=== PATIENT | male | born 1970 | race African-American/Black ===

== ENCOUNTER → 2020-06-28 | Emergency (ER) | payer OTHER ==
[~2020-06-28] VITALS: Ht 162.6 cm; Wt 68.0 kg
[~2020-06-28] MED LIST: PLAVIX75 MG PO
--- OUTSIDE RECORDS SUMMARY | ~2020-06-28 | XMS | Encounter Summary ---
Demographics + + + | Address | [address] | | | [place] [address] | + + + | Home Phone | | + + + | Preferred Language | Unknown | + + + | Marital Status | | + + + | Mormonism Affiliation | Unknown | + + + | Race | White | + + + | Ethnic Group | Not or | + + + Author + + + | Author | [facility] | | | and [place] | + + + | Organization | [facility] | | | and [place] | + + + | Address | Unknown | + + + | Phone | Unavailable | + + + Support + + + + + | Name | Relationship | Address | Phone | + + + + + | Maciel Hanley | ECON | [address] | + | | | | [place], | | | | | [place] [address] | | + + + + + | Wilian Krishna) | ECON | [address] | | | [place] | | [place], [place] | | | | | [address] | | + + + + + | Cathy Hanley | ECON | [address] | | | | | [place], [place] | | | | | [address] | | + + + + + | Zachariah Hanley | ECON | Unknown | + | + + + + + Care Team Providers + +------+ + | Care Offset Plate Preparation Supervisor Name | Role | Phone | + +------+ + | Chito Tarango MD | PCP | | + +------+ + Reason for Referral Evaluate & Treat (Routine) +--------+ + + + + + | Status | Reason | Specialty | Diagnoses / | Referred By | Referred To | | | | | Procedures | Contact | Contact | +--------+ + + + + + | Closed | Specialty | Physical | Diagnoses | Pinto, | | | | Services | Therapy | Status post | Patrick Coker, | | | | Required | | lumbar | MD [address] | | | | | | spinal | [address] | | | | | | fusion | [place], | | | | | | | [place] [address] | | | | | | | Phone: | | | | | | | [phone] | | | | | | | [phone] Fax: | | | | | | | | | | | | | | [phone] | | +--------+ + + + + + + + | Scheduling Instructions | + + | PHYSICAL THERAPY: TEACH LUMBAR HYGIENE; SAFETY, ERGONOMICS, MECHANICS, POSTURE, & | | BALANCE FOR 1-2 VISITS. LIFTING LIMITS ARE FOLLOWS: MONTH 1: 5 POUNDS | | MONTH 2: 15-25 POUNDS MONTH 3: 25-30 POUNDS AFTER THAT TOLERATED PLEASE FAX | | RESULTS UPON COMPLETION TO [phone] | + + Encounter Details +--------+ + + + + | Date | Type | Department | Care Team | Description | +--------+ + + + + | 04/11/ | Orders Only | [facility] | Patrick Pinto | Status post lumbar | | 2012 | | NEUROSURGERY [address] | FMD [address] | spinal fusion | | | | [address] | [place] | (Primary Dx) | | | | [place] | [address] | | | | | [address] | [phone] | | | | | [phone] | | | +--------+ + + + + Social History + +-------+ +--------+------+ | Tobacco Use | Types | Packs/Day | Years | Date | | | | | Used | | + +-------+ +--------+------+ | Never Smoker | | | | | + +-------+ +--------+------+ + +---+---+ + | Smokeless Tobacco: | | | Quit: | | Former User | | | 07/16/20 | | | | | 12 | + +---+---+ + + + +---------+ + | Alcohol Use | Drinks/Week | oz/Week | Comments | + + +---------+ + | Yes | | | rarely | + + +---------+ + + + + | Sex Assigned at | Date Recorded | | | | + + + | Not on file | | + + + documented as of this encounter Plan of Treatment + + +--------+ + + | Name | Type | Priori | Associated Diagnoses | Order Schedule | | | | ty | | | + + +--------+ + + | Ambulatory referral | Outpatient | Routin | Status post lumbar | 1 Occurrences | | to Physical Therapy | Referral | e | spinal fusion | starting 04/11/2013 | | | | | | until 04/11/2014 | + + +--------+ + + documented as of this encounter Results XR Lumbar Spine 2 or 3 Vw (05/03/2013 11:03 AM PDT) + + | Specimen | + + | | + + + + + | Narrative | Performed At | + + + | [facility] | [facility] | | Department [address] [facility], [place] | [facility] | | [ rep [address]] [ rep [facility] | | st zip] Signed | - IMAGING | | | | | Patient Name: HANLEYTHEODORE Physician: | | | ARRE.01 : 09/23/1957 Age: 55 Sex: M Unit #: [id number] | | | Exam Date: 05/03/13 Location: [facility] | | | Report #: [id number] Page: | | | %(RAD)RES..mtdd.print.filter("pg") of %(RAD) | | | RES..mtdd.print.filter("tpg") | | | | | | Accession Number: [id number] | | | LUMBAR SPINE CLINICAL HISTORY: FOLLOWUP FUSION. | | | COMPARISON: 03/23/2013. FINDINGS: | | | Posterior pedicle screw and aiden fixation is present across L5-S1. | | | Hardware is in stable position. Interbody spacer is also present, | | | in unchanged position. The alignment is normally maintained. | | | Vertebral body heights are normal. No adjacent abnormalities are | | | seen. IMPRESSION: STABLE L5-S1 POSTERIOR PEDICLE | | | SCREW FIXATION AND INTERBODY FUSION. Dictated | | | Date/Time: 05/03/2013 11:03 Transcribed Date/Time: 05/03/2013 | | | 11:38 Business Technology Analyst: <<Signature | | | on File>> | | | | | | Santhosh Dejesus MD05/03/13 1315 <Electronically signed by | | | Santhosh Dejesus MD> Santhosh Dejesus MD 05/03/13 | | | 1103 Business Technology Analyst: Optony Bpdfmkekrqxpz64/03/13 1138 | | | Patrick Pinto MD | | + + + + + + + + | Performing | Address | City/State/Zipcode | Phone Number | | Organization | | | | + + + + + | [facility] | [address] | [place] | [phone] | | [facility] | | [address] | | | - IMAGING | | | | + + + + + documented in this encounter Visit Diagnoses + + | Diagnosis | + + | Status post lumbar spinal fusion - Primary Arthrodesis status | + + documented in this encounter
--- OUTSIDE RECORDS SUMMARY | ~2020-06-28 | XMS | Encounter Summary ---
Demographics + + + | Address | [address] | | | [place] [address] | + + + | Home Phone | | + + + | Preferred Language | Unknown | + + + | Marital Status | | + + + | Religion Affiliation | Unknown | + + + | Race | White | + + + | Ethnic Group | Not or | + + + Author + + + | Author | [facility] | | | and [place] | + + + | Organization | [facility] | | | and [...] [place], | | | | | [place] [address] | | + + + + + | Wilian Krishna) | ECON | [address] | | | [place] | | [place], [place] | | | | | [address] | | + + + + + | Cathy Hanley | ECON | [address] | | | | | [place], [place] | | | | | [address] | | + + + + + | Zachariah Hanley | ECON | Unknown | + | + + + + + Care Team Providers + +------+ + | Care Pit Boss Name | Role | Phone | + +------+ + | Chito Tarango MD | PCP | | + +------+ + Encounter Details +--------+ + + + + | Date | Type | Department | Care Team | Description | +--------+ + + + + | 05/03/ | Hospital | [facility] | Patrick Pinto | Status post lumbar | | 2012 | Encounter | MED CTR XRAY [address] | MD [place] [address] | spinal fusion | | | | [place] | [facility] [place] | | | | | [place] [address] | [address] | | | | | [phone] | [phone] | | | | | | | | +--------+ + + + [...] + + documented as of this encounter Medications at Time of Discharge + + + +---------+ + + | Medication | Sig | Dispensed | Refills | Start | End Date | | | | | | Date | | + + + +---------+ + + | Ascorbic Acid | Take 1,000 mg by | | 0 | | | | (VITAMIN C) 1000 MG | mouth Daily. | | | | | | tablet | | | | | | + + + +---------+ + + | Multiple | Take 1 capsule by | | 0 | | | | Vitamins-Minerals | mouth Daily. | | | | | | (MULTIVITAMIN & | | | | | | | MINERAL PO) | | | | | | + + + +---------+ + + | clorazepate | Take 7.5 mg by mouth | | 0 | 03/22/20 | | | (TRANXENE-T) 7.5 mg | every 6 hours as | | | 13 | 3 | | tablet | needed. | | | | | + + + +---------+ + + | cyclobenzaprine | Take 0.5-1 tablets | 90 | 3 | 03/29/20 | | | (FLEXERIL) 10 mg | by mouth 3 times | tablet | | 13 | 9 | | tablet | daily as needed for | | | | | | | Muscle spasms. | | | | | + + + +---------+ + + | docusate sodium | Take 100 mg by mouth | | 0 | 03/22/20 | | | (COLACE) 100 mg | 2 times daily. | | | 13 | 3 | | capsule | | | | | | + + + +---------+ + + | DULoxetine | Take 60 mg by mouth | | 0 | | | | (CYMBALTA) 60 MG | Daily. | | | | 3 | | capsule | | | | | | + + + +---------+ + + | | Take 1-2 tablets by | | 0 | 03/30/20 | | | HYDROcodone-acetamin | mouth EVERY 4 TO 6 | | | 13 | 3 | | ophen (NORCO) | HOURS NEEDED. | | | | | | 7.5-325 mg per | | | | | | | tablet | | | | | | + + + +---------+ + + | MELOXICAM | Take 15 mg by mouth | | 0 | | | | | Daily. | | | | 3 | + + + +---------+ + + | methocarbamol | Take 750 mg by mouth | | 0 | | | | (ROBAXIN) 750 mg | 4 times daily. | | | | 3 | | tablet | | | | | | + + + +---------+ + + | | Take 1-2 tablets by | 60 | 0 | 05/03/20 | | | oxyCODONE-acetaminop | mouth every 4 hours | tablet | | 13 | 3 | | hen (PERCOCET) 5-325 | as needed for Pain. | | | | | | mg per tablet | | | | | | + + + +---------+ + + | | Take 1 tablet by | 30 | 0 | 03/29/20 | | | oxyCODONE-acetaminop | mouth every 4 hours | tablet | | 13 | 3 | | hen (PERCOCET) 5-325 | as needed. | | | | | | mg per tablet | | | | | | + + + +---------+ + + documented as of this encounter Plan of Treatment Not on filedocumented as of this encounter Procedures + +--------+ + + + | Procedure Name | Priori | Date/Time | Associated Diagnosis | Comments | | | ty | | | | + +--------+ + + + | XR LUMBAR SPINE 2 OR | Routin | 05/03/2013 | Status post lumbar | Results for this | | 3 VW | e | 11:03 AM | spinal fusion | procedure are in the | | | | PDT | | results section. | + +--------+ + + + documented in this encounter Results XR Lumbar Spine 2 or 3 Vw (05/03/2013 11:03 AM PDT) + + | Specimen | + + | | + + + + + | Narrative | Performed At | + + + | [facility] | [place] | | Department [address] [facility] [address] | [facility] | | [ rep [address]] [ rep [facility] | | st zip] Signed | - IMAGING | | | | | Patient Name: THEODORE HANLEY Physician: | | | ARRE.01 : 09/23/1957 Age: 55 Sex: M Unit #: [id number] | | | Exam Date: 05/03/13 Location[place] [facility] [place] | | | Report #: [id number] Page: | | | %(RAD)RES..mtdd.print.filter("pg") of %(RAD) | | | RES..mtdd.print.filter("tpg") | | | | | | Accession Number: [id number] | | | LUMBAR SPINE CLINICAL HISTORY: [...] Transcribed Date/Time: 05/03/2013 | | | 11:38 Compressed Air Pile Driver Operator: <<Signature | | | on File>> | | | | | | Santhosh Dejesus MD05/03/13 1315 <Electronically signed by | | | Santhosh Dejesus MD> Santhosh Dejesus MD 05/03/13 | | | 1103 Compressed Air Pile Driver Operator: [employer] Pkqjwfeworfev75/03/13 1138 | | | Patrick Pinto MD | | + + + + + + + + | Performing | Address | City/State/Zipcode | Phone Number | | Organization | | | | + + + + + | [facility] | [address] | [place] | [phone] | | [facility] | | [address] | | | - IMAGING | | | | + + + + + documented in this encounter Visit Diagnoses + + | Diagnosis | + + | Status post lumbar spinal fusion Arthrodesis status | + + documented in this encounter
--- OUTSIDE RECORDS SUMMARY | ~2020-06-28 | XMS | Encounter Summary ---
Demographics + + + | Address | [address] | | | [place] [address] | + + + | Home Phone | | + + + | Preferred Language | Unknown | + + + | Marital Status | | + + + | Taoism Affiliation | Unknown | + + + | Race | White | + + + | Ethnic Group | Not or | + + + Author + + + | Author | [facility] | | | and [place] | + + + | Organization | [facility] | | | and [place] | + + + | Address | Unknown | + + + | Phone | Unavailable | + + + Support + + + + + | Name | Relationship | Address | Phone | + + + + + | Maciel Medina | ECON | [address] | + | | | | [place], | | | | | [place] [address] | | + + + + + | Wilian Krishna) | ECON | [address] | | | [place] | | [place], [place] | | | | | [address] | | + + + + + | Cathy Medina | ECON | [address] | | | | | [place], [place] | | | | | [address] | | + + + + + | Zachariah Medina | ECON | Unknown | + | + + + + + Care Team Providers + +------+ + | Care Rental Car Ferry Driver Name | Role | Phone | + +------+ + | Chito Tarango MD | PCP | | + +------+ + Reason for Visit + +--------+ + | Reason | Onset | Comments | | | Date | | + +--------+ + | Leg Pain | 03/30/ | | | | 2012 | | + +--------+ + Encounter Details +--------+ + + + + | Date | Type | Department | Care Team | Description | +--------+ + + + + | 03/30/ | Telephone | [facility] | Mg Estes MD | Leg Pain | | 2012 | | NEUROSURGERY [address] | [address] | | | | | [address] | [place] [address] | | | | | [place] | [phone] | | | | | [address] | | | | | | [phone] | | | +--------+ + + + [...] + + documented as of this encounter Miscellaneous Notes Telephone Encounter - Mg Estes MD - 03/30/2013 6:48 AM PDTMr. Carol called having 8/ 10 leg pain similar to before surgery in his left leg. No other worrisome symptoms or wound issues. He was running low on pain medication (had not received mailed Rx) and ran out of muscle re laxers. I called in hydrocodone 7.5/325 mg, robaxin, and a short course of decadron 2mg BID (5 days ). I asked he call late or early Wednesday to possibly be seen by the nurse or PA on Wed if the symptoms worsen or persist. Mg Estes documented in this encou nter Plan of Treatment Not on filedocumented as of this encounter Visit Diagnoses Not on filedocumented in this encounter"
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
--- OUTSIDE RECORDS SUMMARY | ~2020-06-28 | XMS | Encounter Summary ---
Demographics + + + | Address | [address] | | | [place] [address] | + + + | Home Phone | | + + + | Preferred Language | Unknown | + + + | Marital Status | | + + + | Mormon Affiliation | Unknown | + + + | Race | White | + + + | Ethnic Group | Not or | + + + Author + + + | Author | [facility] | | | and [place] | + + + | Organization | [facility] | | | [...] [place], | | | | | [place] [address] | | + + + + + | Wilian Krishna) | ECON | [id number] | | | [place] | | [place], [place] | | | | | [address] | | + + + + + | Cathy Hanley | ECON | [address] | | | | | [place], [place] | | | | | [address] | | + + + + + | Zachariah Hanley | ECON | Unknown | + | + + + + + Care Team Providers + +------+ + | Care Urinalysis Technician Name | Role | Phone | + [...] | Specialty | Physical | Diagnoses | [facility], | | | | Services | Therapy | S/P lumbar | José Miguel, | | | | Required | | fusion | PA-C [address] | | | | | | [address] | | | | | | | [place], | | | | | | | [place] [address] | | | | | | | Phone: | | | | | | | [phone] | | | | | | | Fax: | | | | | | | [phone] | | +--------+ + + + + + + + | Scheduling Instructions | + + | PHYSICAL THERAPY: EVALUATE AND TREAT; CORE CONDITIONING AND LUMBAR MODALITIES; | | AQUATHERAPY, NON-NARCOTIC PAIN MODALITIES, 3X WEEK FOR 6-8 WEEKS; TEACH HOME CORE | | CONDITIONING PROGRAM; SEND REPORT UPON COMPLETION | + + Reason for Visit + + + | Reason | Comments | + + + | Follow-up | 6 Week PO | + + + Encounter Details +--------+---------+ + + + | Date | Type | Department | Care Team | Description | +--------+---------+ + + + | 05/03/ | Office | [facility] | Patrick Pinto | S/P lumbar fusion | | 2012 | Visit | NEUROSURGERY [address] | MD John Paul [address] | (Primary Dx) | | | | [address] | [address] [place], [place] | | | | | [place], [place] | [address] | | | | | [address] | [phone] | | | | | [phone] | | | +--------+---------+ + + + [...] + + + | Blood Pressure | 103/74 | 05/03/2013 10:55 AM | | | | | PDT | | + + + + + | Pulse | 98 | 05/03/2013 10:55 AM | | | | | PDT | | + + + + + | Temperature | - | - | | + + + + + | Respiratory Rate | 18 | 05/03/2013 10:55 AM | | | | | PDT | | + + + + + | Oxygen Saturation | - | - | | + + + + + | Inhaled Oxygen | - | - | | | Concentration | | | | + + + + + | Weight | 98.4 kg (217 lb) | 05/03/2013 10:55 AM | | | | | PDT | | + + + + + | Height | 182.9 cm (6') | 05/03/2013 10:55 AM | | | | | PDT | | + + + + + | Body Mass Index | 29.43 | 05/03/2013 10:55 AM | | | | | PDT | | + + + + + documented in this encounter Patient Instructions Patient Instructions Patrick Pinto MD - 05/03/2013 11:37 AM PDTSPINE BRACE WEANING PROTOCOL (1 WEEK) At the end of the 2-3 months that you have been wearing your brace, please follow the sched ule below for the last week after you receive clearance from the surgeon to remove the brace . DAY 7 Wear your brace in the morning as usual for 4 hours. Remove your brace for 4 hours. Put y our brace back on and wear it until bedtime. Remove it at bedtime as usual. DAY 6 Wear your brace in the morning as usual for 4 hours. Remove your brace for 6 hours. Put y our brace back on and wear it until bedtime. Remove it at bedtime as usual. DAY 5 Wear your brace in the morning as usual for 4 hours. Remove your brace for 8 hours. Put y our brace back on and wear it until bedtime. Remove it at bedtime as usual. DAY 4 Wear your brace in the morning as usual for 4 hours. Remove your brace for the rest of the day. DAY 3 Wear your brace in the morning as usual for 3 hours. Remove your brace for the rest of the day. DAY 2 Wear your brace in the morning as usual for 2 hours. Remove your brace for the rest of the day. DAY 1 Wear your brace in the morning as usual for 2 hours. Remove your brace for the rest of the day. FINAL DAY Don't wear your brace any more! documented in this encounter Progress Notes Patrick Pinto MD - 05/03/2013 11:38 AM PDTFormatting of this note might be differen t from the original. Patrick Pinto MD [address] [facility] [place] [address] [place] [address] FAX: NEUROSURGERY SURGICAL FOLLOW-UP CHIEF COMPLAINT: Chief Complaint Patient presents with Follow-up 6 Week PO HISTORY OF PRESENT ILLNESS: The patient is a 55 y.o. male that had a L5-S1 TLIF by me khai und 6-8 weeks ago. He returns and overall is doing fairly well. The patient complains of s ome soreness in the buttock worse on the left than the right. He reports that he has occasi onal burning pain down the back of his left thigh particularly after he walks a mile and a h nursing home. He still has some soreness in his back. The patient has been walking as much as possi ble. He is still taking pain medications at this point. The patient has had No issues with his surgical site. CURRENT MEDICATIONS: Current Outpatient Prescriptions Medication Sig Dispense Refill Ascorbic Acid (VITAMIN C) 1000 MG tablet Take 1,000 mg by mouth Daily. clorazepate (TRANXENE-T) 7.5 mg tablet Take 7.5 mg by mouth every 6 hours as needed. cyclobenzaprine (FLEXERIL) 10 mg tablet Take 0.5-1 tablets by mouth 3 times daily as ne eded for Muscle spasms. 90 tablet 3 docusate sodium (COLACE) 100 mg capsule Take 100 mg by mouth 2 times daily. DULoxetine (CYMBALTA) 60 MG capsule Take 60 mg by mouth Daily. HYDROcodone-acetaminophen (NORCO) 7.5-325 mg per tablet Take 1-2 tablets by mouth EVERY 4 TO 6 HOURS NEEDED. MELOXICAM Take 15 mg by mouth Daily. methocarbamol (ROBAXIN) 750 mg tablet Take 750 mg by mouth 4 times daily. Multiple Vitamins-Minerals (MULTIVITAMIN & MINERAL PO) Take 1 capsule by mouth. oxyCODONE-acetaminophen (PERCOCET) 5-325 mg per tablet Take 1 tablet by mouth every 4 h ours as needed. 30 tablet 0 oxyCODONE-acetaminophen (PERCOCET) 5-325 mg per tablet Take 1-2 tablets by mouth every 4 hours as needed for Pain. 60 tablet 0 ALLERGIES: Allergies Allergen Reactions Morphine Hives SOCIAL HISTORY: The patient reports that he has never smoked. He quit smokeless tobacco use about 9 months ago. He reports that he drinks alcohol. He reports that he does not use illicit drugs. INTERIM PHYSICAL EXAMINATION: Blood pressure 103/74, pulse 98, resp. rate 18, height 1.829 m (6'), weight 98.431 kg (217 lb). Body mass index is 29.43 kg/(m^2). GENERAL: Theodore Hanley is in no acute distress with unlabored respirations. SPINE: The patient s incisions are healing well without drainage, significant erythema, o r discharge EXTREMITIES: No lower extremity edema. NEUROLOGICAL EXAMINATION: MENTAL STATUS: The patient is awake, alert, and oriented. He follows simple and complex commands MOTOR EXAM: Motor strength is 5 out of 5. This is improved from the preoperative exam. SENSORY EXAM: The sensory examination improved from the preoperative exam. He denies numbn ess. RADIOGRAPHIC REVIEW: The patient s postoperative x-rays show stable instrumentation and alignment and were rev iewed with the patient today. There have been no interval changes since the immediate posto perative films. Complete fusion has not yet occurred, but this is normal and would not be e xpected at this time. ASSESSMENT: S/P L5-S1 TLIF: Encounter Diagnosis Name Primary? S/P lumbar fusion Yes Past Medical History Diagnosis Date GERD (gastroesophageal reflux disease) Asthma PLAN: Overall, the patient is doing fairly well. He is still however taking some narcotic pain m edications at night as well as in the morning. I encouraged him to try to reduce that and t o rely more on Tylenol. I do think that removing the brace and getting her to registered physical therapist apy will help with his pains. Overall I am pleased with the progress made. I increased the patient s activities slowly now allowing 15 pound lifting and also will b egin the process of brace weaning. I would like the patient to advance slowly with this pro cess and discussed this at length during today's visit. I would also like the patient to co ntinue with postoperative rehabilitation and to advance with therapy as tolerated. Once again we discussed that I will be leaving his practice in the next week or 2. The rem ainder of his followup will be with one my colleagues. He is okay with this. I spent 30 minutes in visit with Theodore Hanley today with the majority of time spent cou nselling the patient on his recovery and coordinating his future care. The patient will fol low-up with this clinic in around 5-7 weeks for re-evaluation. Likely his return to work wi ll be discussed at that visit. ELECTRONICALLY SIGNED BY: Patrick Pinto MD, 05/03/2013 11:38 documented in this encounter Plan of Treatment + + +--------+ + + | Name | Type | Priori | Associated Diagnoses | Order Schedule | | | | ty | | | + + +--------+ + + | Ambulatory referral | Outpatient | Routin | S/P lumbar fusion | 1 Occurrences | | to Physical Therapy | Referral | e | | starting 05/03/2013 | | | | | | until 05/03/2014 | + + +--------+ + + documented as of this encounter Results XR Lumbar Spine 2 or 3 Vw (06/12/2013 2:57 PM PDT) + + | Specimen | + + | | + + + + + | Narrative | Performed At | + + + | [facility] | [place] | | Department [address] [facility] [place] | [facility] | | [ rep [address]] [ rep [facility] | | st zip] Signed | - IMAGING | | | | | Patient Name: THEODORE HANLEY Physician: | | | ARRE.01 : 09/23/1957 Age: 55 Sex: M Unit #: [id number] | | | Exam Date: 06/12/13 Location: [facility] | | | Report #: [id number] Page: | | | %(RAD)RES..mtdd.print.filter("pg") of %(RAD) | | | RES..mtdd.print.filter("tpg") | | | | | | Accession Number: [id number] | | | LUMBAR SPINE, 06/12/2013 CLINICAL HISTORY: POSTOP. | | | COMPARISON: May 03, 2013. FINDINGS: | | | Posterior pedicle screw and aiden fixation is present across L5-S1. | | | Interbody spacer is present in the disk interspace. Fixation | | | hardware is in unchanged position. Alignment is normally maintained. | | | No bony abnormalities or adjacent abnormalities are seen. | | | IMPRESSION: 1. STABLE SATISFACTORY APPEARANCES OF L5-S1 | | | POSTERIOR PEDICLE SCREW AND INTERBODY FUSION. Dictated | | | Date/Time: 06/12/2013 14:57 Transcribed Date/Time: 06/12/2013 | | | 17:00 Mini Lab Operator: JEANNINE <<Signature | | | on File>> | | | | | | Santhosh Dejesus MD06/15/13 0828 <Electronically signed by | | | Santhosh Dejesus MD> Santhosh Dejesus MD 06/12/13 | | | 1457 Mini Lab Operator: Yeelion [id number]/12/13 3737 | | | Patrick Pinto MD | | + + + + + + + + | Performing | Address | City/State/Zipcode | Phone Number | | Organization | | | | + + + + + | [facility] | [address] | [place] | [phone] | | [facility] | | [address] | | | - IMAGING | | | | + + + + + documented in this encounter Visit Diagnoses + + | Diagnosis | + + | S/P lumbar fusion - Primary Arthrodesis status | + + documented in this encounter
--- OUTSIDE RECORDS SUMMARY | ~2020-06-28 | XMS | Encounter Summary ---
Demographics + + + | Address | [address] | | | [place] [address] | + + + | Home Phone | | + + + | Preferred Language | Unknown | + + + | Marital Status | | + + + | Restorationist Affiliation | Unknown | + + + | Race | White | + + + | Ethnic Group | Not or | + + + Author + + + | Author | [facility] | | | and [place] | + + + | Organization | [facility] | | [...] [place], | | | | | [place] [address] | | + + + + + | Wilian Krishna) | ECON | [address] | | | [place] | | [place], [place] | | | | | [address] | | + + + + + | Cathy Medina | ECON | [address] | | | | | [place], [place] | | | | | [address] | | + + + + + | Zachariah Medina | ECON | Unknown | + | + + + + + Care Team Providers + +------+ + | Care Impregnator And Drier Helper Name | Role | Phone | + +------+ + | Chito Tarango MD | PCP | | + +------+ + Encounter Details +--------+ + + + + | Date | Type | Department | Care Team | Description | +--------+ + + + + | 06/07/ | Orders Only | [facility] | Provider, | | | 2018 | | [facility] GENER[facility] OP | MD [address] | | | | | [address] | [place] | | | | | [address] [place] | [place] [address] | | | | | [address] | | | | | | [phone] | | | +--------+ + + + [...] 12 | + +---+---+ + + + | Comments: about 20 years of chewing tobaco | + + + + +---------+ + | Alcohol Use | Drinks/Week | oz/Week | Comments | + + +---------+ + | Yes | | | Alcoholic | | | | | Drinks/day: occ | + + +---------+ + + + + | Sex Assigned at | Date Recorded | | | | + + + | Not on file | | + + + documented as of this encounter Plan of Treatment Not on filedocumented as of this encounter Visit Diagnoses Not on filedocumented in this encounter"
--- OUTSIDE RECORDS SUMMARY | ~2020-06-28 | XMS | Encounter Summary ---
Demographics + + + | Address | [address] | | | [place] [address] | + + + | Home Phone | | + + + | Preferred Language | Unknown | + + + | Marital Status | | + + + | Scientologist Affiliation | Unknown | + + + | Race | White | + + + | Ethnic Group | Not or | + + + Author + + + | Author | [facility] | | | and [place] | + + + | Organization | [facility] | | | and [...] [place], | | | | | [place] [address] | | + + + + + | Wilian Krishna) | ECON | [address] | | | [place] | | [place], [place] | | | | | [address] | | + + + + + | Cathy Medina | ECON | [address] | | | | | [place], [place] | | | | | [address] | | + + + + + | Zachariah Medina | ECON | Unknown | + | + + + + + Care Team Providers + +------+ + | Care Gl Accountant Name | Role | Phone | + +------+ + | Chito Tarango MD | PCP | | + +------+ + Encounter Details +--------+ + + + + | Date | Type | Department | Care Team | Description | +--------+ + + + + | 06/26/ | Anesthesia | [facility] | Tomasz Duarte, | | | 2019 | Event | [facility] | [address] | | | | | [address] | [place] [address] | | | | | [place] [address] | [phone] | | | | | [place], [place] | | | | | | [address] | | | | | | [phone] | | | +--------+ + + + + Anesthesia Record + + + + + | Procedure Name | Responsible | Anesthesia Start | Anesthesia Stop Time | | | Anesthesiologist | Time | | + + + + + | ARTHROSCOPY WRIST | Tomasz Duarte DO | 06/26/19 1036 | 06/26/19 1114 | | with tfcc | | | | | edebridement (Right | | | | | Wrist) | | | | + + + + + +----+---+ + + | Da | T | Event | Comment | | te | i | | | | | m | | | | | e | | | +----+---+ + + | 08 | 1 | An Checkout | Pre-use anesthesia machine/equipment checkout. | | /2 | 0 | | | | 6/ | 3 | | | | 20 | 6 | | | | 19 | | | | +----+---+ + + | | 1 | An Start | Reassessment prior to anesthesia induction/procedure. | | | 0 | | | | | 3 | | | | | 6 | | | +----+---+ + + | | 1 | Antibiotic | | | | 0 | Given | | | | 3 | | | | | 8 | | | +----+---+ + + | | 1 | An Tourn | Right arm 250 mmHg | | | 0 | Inflated | | | | 4 | | | | | 6 | | | +----+---+ + + | | 1 | Quick Note | Surgery start | | | 0 | | | | | 4 | | | | | 9 | | | +----+---+ + + | | 1 | An Tourn | TT = 20 min | | | 1 | Deflated | | | | 0 | | | | | 6 | | | +----+---+ + + | | 1 | Quick Note | Surgery stop | | | 1 | | | | | 0 | | | | | 9 | | | +----+---+ + + | | 1 | | | | | 1 | | | | | 1 | | | | | 1 | | | +----+---+ + + | | 1 | An Stop | Patient handed off to recovery nurse. | | | 1 | | | | | 4 | | | +----+---+ + + +------+ | Meds | +------+ + +---------+ | Name | Total | + +---------+ | ceFAZolin in dextrose (ANCEF) | 2 g | | IVPB 2 g | | + +---------+ | propofol | 110 mg | + +---------+ | mepivacaine (PF) (POLOCAINE) 2% | 2.5 mL | | Perineural | | + +---------+ | mepivacaine (PF) (POLOCAINE) 2% | 12.5 mL | | Perineural | | + +---------+ | bupivacaine (PF) (MARCAINE) 0.5% | 5 mL | | Perineural | | + +---------+ | bupivacaine (PF) (MARCAINE) 0.5% | 25 mL | | Perineural | | + +---------+ | midazolam (VERSED) 1 mg/mL IV | 2 mg | + +---------+ | lactated ringers (LR) infusion | 200 mL | + +---------+ + + | Name | + + | O2 Flow Rate (L/Min) | + + | Insp O2 | + + | Exp N2O | + + + + | No blood administrations on file. | + + +--------+ + + + | Type | Details | Placement | Removal | +--------+ + + + | Wound | 06/26/19; 1053; Incision; Right; | 06/26/19 1053 by | | | | ale Duggan RN | | +--------+ + + + | Periph | 06/26/19; 0940; Left; Hand; | 06/26/19 0940 by | 06/26/19 1126 by | | josé miguel | [id number] catheter system; | Irish Brownon, | Magdalena Hawkins, | | IV | 22 gauge; distraction, tolerated | RN | RN | | | well, appears comfortable; | | | | | removed per policy/procedure, | | | | | catheter/device intact; 06/26/19; | | | | | 1126 | | | +--------+ + + + documented in this encounter Social History + +-------+ +--------+------+ | Tobacco Use | Types | Packs/Day | Years | Date | | | | | Used | | + +-------+ +--------+------+ | Never Smoker | | | | | + +-------+ +--------+------+ + +------+---+---+ | Smokeless Tobacco: | Chew | | | | Current User | | | | + +------+---+---+ + + | Comments: QUIT IN 2011 BUT RECENTLY STARTED AGAIN | + + + + +---------+ + | Alcohol Use | Drinks/Week | oz/Week | Comments | + + +---------+ + | Yes | | | 6 BEERS PER YEAR | + + +---------+ + + + + | Sex Assigned at | Date Recorded | | | | + + + | Not on file | | + + + documented as of this encounter [place] Notes Anesthesia Postprocedure Evaluation - Tomasz Duarte DO - 06/26/2019 11:16 AM PDT ANESTHESIA POSTANESTHESIA EVALUATION Antonio Medina 61 y.o. male 09/23/1957 [id number] Pre-operative Diagnosis: Right wrist pain with TFCC tear Post-operative Diagnosis: same Procedure(s): Right wrist arthroscopy with TFCC debridement Procedure(s) ARTHROSCOPY WRIST with tfcc edebridement (Right Wrist) Cooperates? Yes Mental Status Performs simple tasks. Respiratory Satisfactory - Airway patent (self maintained). Cardiovascular Satisfactory - Blood pressure and heart rate acceptable Temperature Satisfactory Pain Satisfactory N/V Control Satisfactory Hydration Satisfactory - No signs of dehydration Vitals Value Taken Time Temp 36.1 C (97 F) 06/26/2019 11:16 Pulse 91 06/26/2019 11:16 Resp 16 06/26/2019 11:16 BP 130/81 06/26/2019 11:16 Arterial Line BP Arterial Line BP 2 SpO2 97 % 06/26/2019 11:16 Electronically signed by Tomasz Duarte DO 06/26/2019 11:17 [facility] [place] Procedure Notes - Tomasz Duarte DO - 06/26/2019 11:03 AM PDTAssociated Order(s): Nerve Bl ockPerineural Procedure Note Nerve block: axillary-brachial plexus Laterality: right Continuous block with catheter: No Provider requested procedure: Dr. Martini Indication: postoperative analgesia, acute pain management and surgical anesthesia Preprocedure check: patient identified, procedure and rescue equipment checked, preevaluati on including airway assessment complete, risks/benefits discussed, consent obtained, timeout performed, monitors applied and reassessment prior to procedure Patient position: supine Preparation: chlorhexidine/isopropyl alcohol Introducer used: no Local anesthetic infiltration volume in ml: 1 mL Technique: ultrasound Needle size: 25 g Needle length: 1.5 in Medication administered through: needle and incremental injection Negative findings: no paresthesia and no blood aspirated Total volume of local anesthetic solution administered: 50 mL Attempts: 1 Ease of procedure: easy LDA Securement: 4x4 gauze. Comments: Ultrasound used for Supraclavicular and Axillary brachial plexus localization and needle visualization for local anesthetic placement. Pictures taken and stored in patient' s electronic health record. Patient complains of right hand pain. Right Supraclavicular and Axillary brachial plexus b locks performed after Chloraprep and 1% lidocaine 5 mg skin wheals. Mixture of 1% Mepivacai ne 30 ml and 0.5% Bupivacaine plain 30 ml used. Sitting position, positive subcalvian arter y, positive brachial plexus, 10 ml of solution given in 1-3 ml increments. Repositioned sup ine, positive axillary artery, positive brachial plexus, 50 ml of solution given in 1-5 ml i ncrements. Good local anesthetic spread, anticipate satisfactory blocks. Patient tolerated procedure well. Versed 2 mg given for anxiolysis. Medications Administered Bupivacaine (PF) (MARCAINE) 0.5% Perineural, 25 mL mepivacaine (PF) (POLOCAINE) 2% Perineural, 12.5 mL Date/Time: 06/26/2019 10:32 Please see anesthesia record or flowsheet for vital sign documentation and see anesthesia r ecord or MAR for additional medication documentation. Performing provider: Tomasz Duarte DO Nutrition Services Manager: Irish Lopez RN nesthesia Procedure Not es - Tomasz Duarte DO - 06/26/2019 10:57 AM PDTAssociated Order(s): Nerve BlockPerineural Pr ocedure Note 06/26/2019 10:25 Nerve block: supraclavicular-brachial plexus Laterality: right Continuous block with catheter: No Provider requested procedure: Dr. Martini Indication: surgical anesthesia, postoperative analgesia and acute pain management Preprocedure check: patient identified, procedure and rescue equipment checked, preevaluati on including airway assessment complete, risks/benefits discussed, consent obtained, timeout performed, monitors applied and reassessment prior to procedure Patient position: sitting Preparation: chlorhexidine/isopropyl alcohol, 1% lidocaine infiltration Introducer used: no Local anesthetic infiltration volume in ml: 1 mL Technique: ultrasound Needle size: 25 g Needle length: 1.5 in Medication administered through: needle and incremental injection Negative findings: no paresthesia and no blood aspirated Total volume of local anesthetic solution administered: 10 mL Attempts: 1 Ease of procedure: easy Dressing: tape (4x4 gauze and tape) Comments: Ultrasound used for Supraclavicular and Axillary brachial plexus localization and needle visualization for local anesthetic placement. Pictures taken and stored in patient' s electronic health record. Patient complains of right hand pain. Right Supraclavicular and Axillary brachial plexus b locks performed after Chloraprep and 1% lidocaine 5 mg skin wheals. Mixture of 1% Mepivacai ne 30 ml and 0.5% Bupivacaine plain 30 ml used. Sitting position, positive subcalvian arter y, positive brachial plexus, 10 ml of solution given in 1-3 ml increments. Repositioned sup ine, positive axillary artery, positive brachial plexus, 50 ml of solution given in 1-5 ml i ncrements. Good local anesthetic spread, anticipate satisfactory blocks. Patient tolerated procedure well. Versed 2 mg given for anxiolysis. Medications Administered Midazolam (VERSED) 1 mg/mL IV, 2 mg bupivacaine (PF) (MARCAINE) 0.5% Perineural, 5 mL mepivacaine (PF) (POLOCAINE) 2% Perineural, 2.5 mL Date/Time: 06/26/2019 10:25 Please see anesthesia record or flowsheet for vital sign documentation and see anesthesia r ecord or MAR for additional medication documentation. Performing provider: Tomasz Duarte DO Nutrition Services Manager: Irish Lopez RN nesthesia Preprocedure Evaluation - Tomasz Duarte DO - 06/23/2019 9:14 PM PDTFormatting of this note might be diff erent from the original. ANESTHESIA PREANESTHESIA EVALUATION Antonio Medina 61 y.o. male 09/23/1957 [id number] Procedure(s): ARTHROSCOPY WRIST with [facility] edebridement (Right Wrist) Medical,anesthesia, drug, allergy histories reviewed, NPO status verified. (-) perioperative beta-ambrosio/statin not given/taken Reasons Beta Ambrosio not given/taken :not applicable/Not taking Beta-Ambrosio. . Review of Systems / Med History Anesthesia History (+) PONV Pulmonary (+) sleep apnea. (+) asthma. Gastrointestinal/Hepatic (+) acid reflux. Additional Comments: Hyperlipidemia Asthma Sleep apnea (does not use CPAP) GERD H/o Kidney stones Chronic low back pain Anxiety Depression EtOH use Physical Exam Airway MP III, TM >3 FB, Mouth opening >2 FB. Neck: full ROM, extends >30 degrees. Jaw protru parris normal. Facial hair present: Yes Dental Grossly normal except where noted below.; CV Rhythm regular. Rate normal. (-) murmur. Pulm Clear to auscultation bilaterally. Neuro (+) Move bilateral lower extremeties and Move bilateral upper extremeties. Anesthesia Plan ASA 2 Type: MAC, PNB. Induction: Other. Potential problems: None anticipated. Monitors: Standard ASA monitors. Peripheral Nerve BlockAdditional comments: 06/24/19 (1020) called for preop, talked with pt, chart reviewed, plans discussed (PNB/MAC) 06/26/19 (1020) pt seen/exam, chart reviewed, plans discussed, pt agrees to proceed (PNB/MAC ) Consent statement:Anesthetic plan, alternatives, risks and benefits discussed with patient. . Consenting person understands and agrees to proceed . Anesthesia consent form used. Electronically Signed by: Tomasz Duarte DO ESig date/time: 06/26/2019 11:06 documented in this encou nter Miscellaneous Notes Addendum Note - Tomasz Duarte DO - 06/27/2019 7:20 PM PDT Addendum created 06/27/19 1920 by Tomasz Duarte DO Sign clinical note ddendum Note - Heidy Duarte DO - 06/26/2019 4:10 PM PDTFormatting of this note might be different from the origi nal. Addendum created 06/26/19 1610 by Tomasz Duarte DO Sign clinical note nesthesia Post-op Hand off - Tomasz Duarte DO - 06/26/2019 11:15 AM PDTFormatting of this note might be different f rom the original. ANESTHESIA HANDOFF NOTE Antonio Medina 61 y.o. male 09/23/1957 [id number] The following were completed during the transfer of care: 1. Identification of patient 2. Identification of responsible practitioner (primary service) 3. Discussion of pertinent medical history 4. Discussion of the surgical/procedure course (procedure, reason for surgery, procedure pe rformed) 5. Intraoperative anesthetic management and issues/concerns 6. Expectations/plans for the early post-procedure period 7. Opportunity for questions and acknowledgement of understanding of report from receiving team Pre-operative Diagnosis: Right wrist pain with TFCC tear Post-operative Diagnosis: same Procedure(s): Right wrist arthroscopy with TFCC debridement Patient Location: Phase II Handoff Protocol Used: post-procedure handoff checklist completed Condition: awake and oriented Airway/O2: no supplemental O2 Multimodal analgesia: multimodal analgesia used between 6 hours prior to anesthesia start t o PACU discharge The significant anesthesia concerns and VS in Epic were reviewed with the receiving team. Tomasz Duarte DO 06/26/2019 11:15 [facility] document ed in this encounter Plan of Treatment Not on filedocumented as of this encounter Procedures + +--------+ + + + | Procedure Name | Priori | Date/Time | Associated Diagnosis | Comments | | | ty | | | | + +--------+ + + + | ANE NERVE BLOCK | Routin | 06/26/2019 | | Results for this | | CATHETER NOTE | e | 11:03 AM | | procedure are in the | | | | PDT | | results section. | + +--------+ + + + | ANE NERVE BLOCK | Routin | 06/26/2019 | | Results for this | | CATHETER NOTE | e | 10:57 AM | | procedure are in the | | | | PDT | | results section. | + +--------+ + + + documented in this encounter Results Nerve Block (06/26/2019 11:03 AM PDT) + + + | Narrative | Performed At | + + + | Tomasz Duarte DO 06/26/2019 11:06 Perineural Procedure Note | | | Nerve block: axillary-brachial plexus Laterality: right Continuous | | | block with catheter: No Provider requested procedure: Dr. Martini | | | Indication: postoperative analgesia, acute pain management and | | | surgical anesthesia Preprocedure check: patient identified, | | | procedure and rescue equipment checked, preevaluation including | | | airway assessment complete, risks/benefits discussed, consent | | | obtained, timeout performed, monitors applied and reassessment prior | | | to procedure Patient position: supine Preparation: | | | chlorhexidine/isopropyl alcohol Introducer used: no Local anesthetic | | | infiltration volume in ml: 1 mL Technique: ultrasound Needle size: | | | 25 g Needle length: 1.5 in Medication administered through: needle | | | and incremental injection Negative findings: no paresthesia and no | | | blood aspirated Total volume of local anesthetic solution | | | administered: 50 mL Attempts: 1 Ease of procedure: easy LDA | | | Securement: 4x4 gauze. Comments: Ultrasound used for | | | Supraclavicular and Axillary brachial plexus localization and needle | | | visualization for local anesthetic placement. Pictures taken and | | | stored in patient's electronic health record. Patient complains of | | | right hand pain. Right Supraclavicular and Axillary brachial | | | plexus blocks performed after Chloraprep and 1% lidocaine 5 mg skin | | | wheals. Mixture of 1% Mepivacaine 30 ml and 0.5% Bupivacaine plain | | | 30 ml used. Sitting position, positive subcalvian artery, positive | | | brachial plexus, 10 ml of solution given in 1-3 ml increments. | | | Repositioned supine, positive axillary artery, positive brachial | | | plexus, 50 ml of solution given in 1-5 ml increments. Good local | | | anesthetic spread, anticipate satisfactory blocks. Patient | | | tolerated procedure well. Versed 2 mg given for anxiolysis. | | | Medications Administered Bupivacaine (PF) (MARCAINE) 0.5% Perineural, | | | 25 mL mepivacaine (PF) (POLOCAINE) 2% Perineural, 12.5 mL | | | Date/Time: 06/26/2019 10:32 Please see anesthesia record or | | | flowsheet for vital sign documentation and see anesthesia record or | | | MAR for additional medication documentation. Performing | | | provider: Tomasz Duarte DO Nutrition Services Manager: Irish Lopez RN | | | | | + + + + + | Procedure Note | + + | Tomasz Duarte DO - 06/26/2019 11:03 AM PDT Perineural Procedure NoteNerve block: | | axillary-brachial plexusLaterality: rightContinuous block with catheter: NoProvider | | requested procedure: Dr. MartiniIndication: postoperative analgesia, acute pain | | management and surgical anesthesiaPreprocedure check: patient identified, procedure and | | rescue equipment checked, preevaluation including airway assessment complete, | | risks/benefits discussed, consent obtained, timeout performed, monitors applied and | | reassessment prior to procedurePatient position: supinePreparation: | | chlorhexidine/isopropyl alcoholIntroducer used: noLocal anesthetic infiltration volume | | in ml: 1 mLTechnique: ultrasoundNeedle size: 25 gNeedle length: 1.5 inMedication | | administered through: needle and incremental injectionNegative findings: no paresthesia | | and no blood aspiratedTotal volume of local anesthetic solution administered: 50 | | mLAttempts: 1Ease of procedure: easyLDA Securement: 4x4 gauze.Comments: Ultrasound used | | for Supraclavicular and Axillary brachial plexus localization and needle visualization | | for local anesthetic placement. Pictures taken and stored in patient's electronic | | health record.Patient complains of right hand pain. Right Supraclavicular and Axillary | | brachial plexus blocks performed after Chloraprep and 1% lidocaine 5 mg skin wheals. | | Mixture of 1% Mepivacaine 30 ml and 0.5% Bupivacaine plain 30 ml used. Sitting | | position, positive subcalvian artery, positive brachial plexus, 10 ml of solution given | | in 1-3 ml increments. Repositioned supine, positive axillary artery, positive brachial | | plexus, 50 ml of solution given in 1-5 ml increments. Good local anesthetic spread, | | anticipate satisfactory blocks. Patient tolerated procedure well. Versed 2 mg given | | for anxiolysis.Medications AdministeredBupivacaine (PF) (MARCAINE) 0.5% Perineural, 25 | | mLmepivacaine (PF) (POLOCAINE) 2% Perineural, 12.5 mLDate/Time: 06/26/2019 10:32Please | | see anesthesia record or flowsheet for vital sign documentation and see anesthesia | | record or MAR for additional medication documentation.Performing provider: Tomasz Duarte, | | DOAssistant: Irish Lopez RN | |50 ml of solution given in 1-5 ml increments. Good local anesthetic spread, anticipate sat isfactory blocks. Patient tolerated procedure well. Versed 2 mg given for anxiolysis. | | | | | |Medications Administered | |Bupivacaine (PF) (MARCAINE) 0.5% Perineural, 25 mL | |mepivacaine (PF) (POLOCAINE) 2% Perineural, 12.5 mL | |Date/Time: 06/26/2019 10:32 | | | | | |Please see anesthesia record or flowsheet for vital sign documentation and see anesthesia r ecord or MAR for additional medication documentation. | | | | | |Performing provider: Tomasz Duarte DO | |Nutrition Services Manager: Irish Lopez RN | + + Nerve Block (06/26/2019 10:57 AM PDT) + + + | Narrative | Performed At | + + + | Tomasz Duarte DO 06/26/2019 11:02 Perineural Procedure Note | | | 06/26/2019 10:25 Nerve block: supraclavicular-brachial plexus | | | Laterality: right Continuous block with catheter: No Provider | | | requested procedure: Dr. Martini Indication: surgical anesthesia, | | | postoperative analgesia and acute pain management Preprocedure | | | check: patient identified, procedure and rescue equipment checked, | | | preevaluation including airway assessment complete, risks/benefits | | | discussed, consent obtained, timeout performed, monitors applied and | | | reassessment prior to procedure Patient position: sitting | | | Preparation: chlorhexidine/isopropyl alcohol, 1% lidocaine | | | infiltration Introducer used: no Local anesthetic infiltration | | | volume in ml: 1 mL Technique: ultrasound Needle size: 25 g Needle | | | length: 1.5 in Medication administered through: needle and | | | incremental injection Negative findings: no paresthesia and no blood | | | aspirated Total volume of local anesthetic solution administered: 10 | | | mL Attempts: 1 Ease of procedure: easy Dressing: tape (4x4 gauze | | | and tape) Comments: Ultrasound used for Supraclavicular and | | | Axillary brachial plexus localization and needle visualization for | | | local anesthetic placement. Pictures taken and stored in patient's | | | electronic health record. Patient complains of right hand pain. | | | Right Supraclavicular and Axillary brachial plexus blocks | | | performed after Chloraprep and 1% lidocaine 5 mg skin wheals. | | | Mixture of 1% Mepivacaine 30 ml and 0.5% Bupivacaine plain 30 ml | | | used. Sitting position, positive subcalvian artery, positive | | | brachial plexus, 10 ml of solution given in 1-3 ml increments. | | | Repositioned supine, positive axillary artery, positive brachial | | | plexus, 50 ml of solution given in 1-5 ml increments. Good local | | | anesthetic spread, anticipate satisfactory blocks. Patient | | | tolerated procedure well. Versed 2 mg given for anxiolysis. | | | Medications Administered Midazolam (VERSED) 1 mg/mL IV, 2 mg | | | bupivacaine (PF) (MARCAINE) 0.5% Perineural, 5 mL mepivacaine (PF) | | | (POLOCAINE) 2% Perineural, 2.5 mL Date/Time: 06/26/2019 10:25 | | | Please see anesthesia record or flowsheet for vital sign documentation | | | and see anesthesia record or MAR for additional medication | | | documentation. Performing provider: Tomasz Duarte DO Nutrition Services Manager: | | | Irish Lopez RN | | + + + + + | Procedure Note | + + | Tomasz Duarte DO - 06/26/2019 10:57 AM PDT Perineural Procedure Note06/26/2019 | | 10:25Nerve block: supraclavicular-brachial plexusLaterality: rightContinuous block with | | catheter: NoProvider requested procedure: Dr. MartiniIndication: surgical anesthesia, | | postoperative analgesia and acute pain managementPreprocedure check: patient identified, | | procedure and rescue equipment checked, preevaluation including airway assessment | | complete, risks/benefits discussed, consent obtained, timeout performed, monitors | | applied and reassessment prior to procedurePatient position: sittingPreparation: | | chlorhexidine/isopropyl alcohol, 1% lidocaine infiltrationIntroducer used: noLocal | | anesthetic infiltration volume in ml: 1 mLTechnique: ultrasoundNeedle size: 25 gNeedle | | length: 1.5 inMedication administered through: needle and incremental injectionNegative | | findings: no paresthesia and no blood aspiratedTotal volume of local anesthetic solution | | administered: 10 mLAttempts: 1Ease of procedure: easyDressing: tape (4x4 gauze and | | tape)Comments: Ultrasound used for Supraclavicular and Axillary brachial plexus | | localization and needle visualization for local anesthetic placement. Pictures taken | | and stored in patient's electronic health record.Patient complains of right hand pain. | | Right Supraclavicular and Axillary brachial plexus blocks performed after Chloraprep and | | 1% lidocaine 5 mg skin wheals. Mixture of 1% Mepivacaine 30 ml and 0.5% Bupivacaine | | plain 30 ml used. Sitting position, positive subcalvian artery, positive brachial | | plexus, 10 ml of solution given in 1-3 ml increments. Repositioned supine, positive | | axillary artery, positive brachial plexus, 50 ml of solution given in 1-5 ml increments. | | Good local anesthetic spread, anticipate satisfactory blocks. Patient tolerated | | procedure well. Versed 2 mg given for anxiolysis.Medications AdministeredMidazolam | | (VERSED) 1 mg/mL IV, 2 mgbupivacaine (PF) (MARCAINE) 0.5% Perineural, 5 mLmepivacaine | | (PF) (POLOCAINE) 2% Perineural, 2.5 mLDate/Time: 06/26/2019 10:25Please see anesthesia | | record or flowsheet for vital sign documentation and see anesthesia record or MAR for | | additional medication documentation.Performing provider: Tomasz Duarte DOAssistant: | | Irish Lopez RN | |50 ml of solution given in 1-5 ml increments. Good local anesthetic spread, anticipate sat isfactory blocks. Patient tolerated procedure well. Versed 2 mg given for anxiolysis. | | | | | |Medications Administered | |Midazolam (VERSED) 1 mg/mL IV, 2 mg | |bupivacaine (PF) (MARCAINE) 0.5% Perineural, 5 mL | |mepivacaine (PF) (POLOCAINE) 2% Perineural, 2.5 mL | |Date/Time: 06/26/2019 10:25 | | | | | |Please see anesthesia record or flowsheet for vital sign documentation and see anesthesia r ecord or MAR for additional medication documentation. | | | | | |Performing provider: Tomasz Duarte DO | |Nutrition Services Manager: Irish Lopez RN | + + documented in this encounter Visit Diagnoses Not on filedocumented in this encounter Administered Medications + +--------+ +-------+------+------+ | Medication Order | MAR | Action | Dose | Rate | Site | | | Action | Date | | | | + +--------+ +-------+------+------+ | bupivacaine (PF) (MARCAINE) | Given | 06/26/20 | 5 mLs | | | | 0.5% injection PERINEURAL, | | 19 10:25 | | | | | Starting 06/26/19 at 1025, | | AM PDT | | | | | Anesthesia Intra-op | | | | | | + +--------+ +-------+------+------+ +---+---+ | | | +---+---+ + +-------+ +--------+---+---+ | bupivacaine (PF) (MARCAINE) | Given | 06/26/20 | 25 mLs | | | | 0.5% injection PERINEURAL, | | 19 10:32 | | | | | Starting 06/26/19 at 1032, | | AM PDT | | | | | Anesthesia Intra-op | | | | | | + +-------+ +--------+---+---+ +---+---+ | | | +---+---+ + +-------+ +-----+---+---+ | ceFAZolin in dextrose (ANCEF) | Given | 06/26/20 | 2 g | | | | IVPB 2 g 2 g, Intravenous, | | 19 10:38 | | | | | Administer over 30 Minutes, ONCE, | | AM PDT | | | | | Wed06/26/19 at 1015, For 1 dose, | | | | | | | Keep in refrigerator., Pre-op, | | | | | | | Indications: Surgical Prophylaxis | | | | | | + +-------+ +-----+---+---+ +---+---+ | | | +---+---+ + +---------+ +---+ +---+ | lactated ringers (LR) infusion | New Bag | 06/26/20 | | 30 mL/hr | | | at 30 mL/hr, Intravenous, | | 19 9:57 | | | | | CONTINUOUS, Starting Wed06/26/19 | | AM PDT | | | | | at 1015, TKO., Pre-op | | | | | | + +---------+ +---+ +---+ +---------+ +---+---+---+ | New Bag | 06/26/20 | | | | | | 19 9:40 | | | | | | AM PDT | | | | +---------+ +---+---+---+ +---+---+ | | | +---+---+ + +-------+ +---------+---+---+ | mepivacaine (PF) (POLOCAINE) 2% | Given | 06/26/20 | 2.5 mLs | | | | injection PERINEURAL, Starting | | 19 10:25 | | | | | 06/26/19 at 1025, Anesthesia | | AM PDT | | | | | Intra-op | | | | | | + +-------+ +---------+---+---+ +---+---+ | | | +---+---+ + +-------+ + +---+---+ | mepivacaine (PF) (POLOCAINE) 2% | Given | 06/26/20 | 12.5 mLs | | | | injection PERINEURAL, Starting | | 19 10:32 | | | | | 06/26/19 at 1032, Anesthesia | | AM PDT | | | | | Intra-op | | | | | | + +-------+ + +---+---+ +---+---+ | | | +---+---+ + +-------+ +------+---+---+ | midazolam (VERSED) injection | Given | 06/26/20 | 2 mg | | | | Intravenous, Starting 06/26/19 | | 19 10:25 | | | | | at 1025, Anesthesia Intra-op | | AM PDT | | | | + +-------+ +------+---+---+ +---+---+ | | | +---+---+ + +-------+ +-------+---+---+ | propofol (DIPRIVAN) injection | Given | 06/26/20 | 30 mg | | | | Intravenous, PRN, Starting Wed | | 19 10:48 | | | | | 06/26/19 at 1040, Anesthesia | | AM PDT | | | | | Intra-op | | | | | | + +-------+ +-------+---+---+ +-------+ +-------+---+---+ | Given | 06/26/20 | 30 mg | | | | | 19 10:44 | | | | | | AM PDT | | | | +-------+ +-------+---+---+ | Given | 06/26/20 | 50 mg | | | | | 19 10:40 | | | | | | AM PDT | | | | +-------+ +-------+---+---+ +---+---+ | | | +---+---+ documented in this encounter"
--- OUTSIDE RECORDS SUMMARY | ~2020-06-28 | XMS | Encounter Summary ---
Demographics + + + | Address | [address] | | | [place] [address] | + + + | Home Phone | | + + + | Preferred Language | Unknown | + + + | Marital Status | | + + + | Holiness Affiliation | Unknown | + + + | Race | White | + + + | Ethnic Group | Not or | + + + Author + + + | Author | [facility] | | | and [place] | + + + | Organization | [facility] | | [...] [place], | | | | | [place] [address] | | + + + + + | Wilian Krishna) | ECON | [address] | | | [place] | | [place], [place] | | | | | [address] | | + + + + + | Cathy Medina | ECON | [address] | | | | | [place], [place] | | | | | [address] | | + + + + + | Zachariah Medina | ECON | Unknown | + | + + + + + Care Team Providers + +------+ + | Care Snack Bar Cook Name | Role | Phone | + +------+ + PCP | Unavailable | + +------+ + Encounter Details +--------+ + + + + | Date | Type | Department | Care Team | Description | +--------+ + + + + | 01/25/ | Hospital | [facility] | Noé Johnston | Unspecified Asthma | | 2005 | Encounter | [address] | MD Susana | | | | | [address] | | | | | | [place] | | | | | | [address] | | | | | | [phone] | | | +--------+ + + + + Social History + +-------+ +--------+------+ | Tobacco Use | Types | Packs/Day | Years | Date | | | | | Used | | + +-------+ +--------+------+ | Never Assessed | | | | | + +-------+ +--------+------+ + + + | Sex Assigned at | Date Recorded | | | | + + + | Not on file | | + + + documented as of this encounter Plan of Treatment Not on filedocumented as of this encounter Visit Diagnoses + + | Diagnosis | + + | Unspecified asthma(493.90) Unspecified asthma | + + documented in this encounter"
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
--- OUTSIDE RECORDS SUMMARY | ~2020-06-28 | XMS | Encounter Summary ---
Demographics + + + | Address | [address] | | | [place] [address] | + + + | Home Phone | | + + + | Preferred Language | Unknown | + + + | Marital Status | | + + + | Sabianism Affiliation | Unknown | + + + | Race | White | + + + | Ethnic Group | Not or | + + + Author + + + | Author | [facility] | | | and [place] | + + + | Organization | [facility] | | | and [place] | + + + | Address | Unknown | + + + | Phone | Unavailable | + + + Support + + + + + | Name | Relationship | Address | Phone | + + + + + | Maciel Hanley | ECON | [address] | + | | | | [place], | | | | | [place] [address] | | + + + + + | Wilian Krishna) | ECON | [address] | | | [place] | | [place], [place] | | | | | [address] | | + + + + + | Cathy Hanley | ECON | [address] | | | | | [place], [place] | | | | | [address] | | + + + + + | Zachariah Hanley | ECON | Unknown | + | + + + + + Care Team Providers + +------+ + | Care Airport Location Manager Name | Role | Phone | + +------+ + | Chito Tarango MD | PCP | | + +------+ + Encounter Details +--------+ + + + + | Date | Type | Department | Care Team | Description | +--------+ + + + + | 10/13/ | Hospital | [facility] | Mg Estes MD | S/P lumbar fusion | | 2012 | Encounter | MED CTR XRAY [address] | | | | | [place] | [place] [address] | | | | | [place] [address] | [phone] | | | | | [phone] | | | +--------+ + + + [...] +---------+ + + | methocarbamol | Take 1 tablet by | 90 | 0 | 10/13/20 | | | (ROBAXIN) 750 mg | mouth 3 times daily. | tablet | | 13 | | | tabletIndications: | | | | | | | S/P lumbar fusion, | | | | | | | Muscle spasms of | | | | | | | lower extremity | | | | | | + [...] | | Take 1-2 tablets by | 90 | 0 | 10/13/20 | | | HYDROcodone-acetamin | mouth EVERY 4 TO 6 | tablet | | 13 | 9 | | ophen (NORCO) | HOURS NEEDED. | | | | | | 7.5-325 mg per | | | | | | | tabletIndications: | | | | | | | S/P lumbar fusion, | | | | | | | Muscle spasms of | | | | | | | lower extremity | | | | | | + [...] LUMBAR SPINE 2 [place] | Routin | 10/13/2013 | S/P lumbar fusion | Results for this | | 3 VW | e | 9:39 AM | | procedure are in the | | | | PST | | results section. | + +--------+ + + + documented in this encounter Results XR Lumbar Spine 2 or 3 Vw (10/13/2013 9:39 AM PST) + + | Specimen | + + | | + + + + + | Narrative | Performed At | + + + | [facility] | TUMTUM | | Department [address] [place] | [facility] | | [ rep [address]] [ rep [facility] | | st zip] Signed | - IMAGING | | | | | Patient Name: THEODORE HANLEY Physician: | | | HARRISONTatiana : 09/23/1957 Age: 56 Sex: M Unit #: [id number] | | | Exam Date: 10/13/13 [place] [facility] [place] | | | Report #: [id number] Page: | | | %(RAD)RES..mtdd.print.filter("pg") of %(RAD) | | | RES..mtdd.print.filter("tpg") | | | | | | Accession Number: [id number] | | | LUMBAR SPINE X-RAY CLINICAL HISTORY: STATUS POST LUMBAR | | | FUSION. COMPARISON: Numerous previous lumbar spine | | | x-rays, most recently 06/12/2013. FINDINGS: Two views | | | of the lumbar spine were obtained. Again visualized is | | | hardware for posterior fusion extending from L5 through S1 with | | | interbody graft material at L5-S1. The hardware remains intact. | | | Vertebral body heights are preserved with no evidence for | | | compression fractures. There are small anterior osteophytes at | | | multiple levels. Diffuse osteopenia is present. Disk heights are | | | maintained. Facet joints are intact. IMPRESSION: | | | 1. STABLE POSTERIOR FUSION FROM L5 THROUGH S1. Dictated | | | Date/Time: 10/13/2013 09:39 Transcribed Date/Time: 10/13/2013 | | | 10:54 Poll Clerk: <<Signature | | | on File>> | | | Manuel | | | MD Thomas10/13/13 1152 <Electronically signed by Manuel Guzman MD> | | | Manuel Guzman MD 10/13/13 3408 Poll Clerk: [employer] | | | [email or web address]/13/13 1054 José Miguel Soria PA-C | | | | | + + + + + + + + | Performing | Address | City/State/Zipcode | Phone Number | | Organization | | | | + + + + + | [facility] | [address] | [place] | [phone] | | [facility] | | [address] | | | - IMAGING | | | | + + + + + documented in this encounter Visit Diagnoses + + | Diagnosis | + + | S/P lumbar fusion Arthrodesis status | + + documented in this encounter
--- OUTSIDE RECORDS SUMMARY | ~2020-06-28 | XMS | Encounter Summary ---
Demographics + + + | Address | [address] | | | [place] [address] | + + + | Home Phone | | + + + | Preferred Language | Unknown | + + + | Marital Status | | + + + | Jainism Affiliation | Unknown | + + + | Race | White | + + + | Ethnic Group | Not or | + + + Author + + + | Author | [facility] | | | and [place] | + + + | Organization | [facility] | | | [...] [place], | | | | | [place] [address] | | + + + + + | Wilian Krishna) | ECON | [address] | | | [place] | | [place], [place] | | | | | [address] | | + + + + + | Cathy Medina | ECON | [address] | | | | | [place], [place] | | | | | [address] | | + + + + + | Zachariah Medina | ECON | Unknown | + | + + + + + Care Team Providers + +------+ + | Care Clinical Unit Educator Name | Role | Phone | + +------+ + | Chito Tarango MD | PCP | | + +------+ + Reason for Visit +--------+--------+ + | Reason | Onset | Comments | | | Date | | +--------+--------+ + | Other | 05/25/ | return to work note | | | 2012 | | +--------+--------+ + Encounter Details +--------+ + + + + | Date | Type | Department | Care Team | Description | +--------+ + + + + | 05/25/ | Telephone | [facility] | Pinto, Patrick | Other (return to | | 2012 | | NEUROSURGERY [address] | [facility] [address] | work note) | | | | [address] | [place] | | | | | [place], [place] | [address] | | | | | [address] | [phone] | | | | | [phone] | | | +--------+ + + + [...] this encounter Miscellaneous Notes Telephone Encounter - Kacey Cr - 05/26/2013 9:25 AM PDTLet patient know that letter w as faxed to today for him. Kacey elephone Encounter - Kenneth Rivera DO - 05/25/2013 4:03 PM PDTThat sounds reasonable. Thank you.Danielall y signed by Kenneth Rivera DO at 05/25/2013 4:04 PM PDTTelephone Encounter - Kacey Cr - 05/25/2013 2:23 PM PDTMichael calls today asking for a note to return to work. He is S/ P TLIF on 03/22/[address] Pinto. 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 He states that he is no longer taking pain m edication. He is still taking his muscle relaxer as needed. He has been doing therapy and walking daily. He would like to return to work beginning 05/29. Fax to: [phone] Attn: Human Resources Thank you, Kacey documented in this en counter Plan of Treatment Not on filedocumented as of this encounter Visit Diagnoses Not on filedocumented in this encounter"
--- OUTSIDE RECORDS SUMMARY | ~2020-06-28 | XMS | Encounter Summary ---
Demographics + + + | Address | [address] | | | [place] [address] | + + + | Home Phone | | + + + | Preferred Language | Unknown | + + + | Marital Status | | + + + | Jehovah'S Witness Affiliation | Unknown | + + + | Race | White | + + + | Ethnic Group | Not or | + + + Author + + + | Author | [facility] | | | and [place] | + + + | Organization | [facility] | | | and [...] [place], | | | | | [place] [address] | | + + + + + | Wilian Krishna) | ECON | [address] | | | [place] | | [place], [place] | | | | | [address] | | + + + + + | Cathy Medina | ECON | [address] | | | | | [place], [place] | | | | | [address] | | + + + + + | Zachariah Medina | ECON | Unknown | + | + + + + + Care Team Providers + +------+ + | Care Campus Safety Officer Name | Role | Phone | + +------+ + PCP | Unavailable | + +------+ + Encounter Details +--------+ + + + + | Date | Type | Department | Care Team | Description | +--------+ + + + + | 11/21/ | Hospital | [facility] | Derek Kilgore | | | 2002 - | Encounter | MED CTR OP REHAB | MD Antonio [address] | | | | | [address] [place] | [address] [place] | | | 12/20/ | | [place] [address] | [place] [address] | | | 2002 | | [phone] | [phone] | | | | | | | [...]
--- OUTSIDE RECORDS SUMMARY | ~2020-06-28 | XMS | Encounter Summary ---
Demographics + + + | Address | [address] | | | [place] [address] | + + + | Home Phone | | + + + | Preferred Language | Unknown | + + + | Marital Status | | + + + | Christian Affiliation | Unknown | + + + | Race | White | + + + | Ethnic Group | Not or | + + + Author + + + | Author | [facility] | | | and [place] | + + + | Organization | [facility] | | | [...] [place], | | | | | [place] [address] | | + + + + + | Wilian Krishna) | ECON | [id number] | | | [place] | | [place], [place] | | | | | [address] | | + + + + + | Cathy Medina | ECON | [address] | | | | | [place], [place] | | | | | [address] | | + + + + + | Zachariah Medina | ECON | Unknown | + | + + + + + Care Team Providers + +------+ + | Care Factory Maintenance Manager Name | Role | Phone | + +------+ + | Chito Tarango MD | PCP | | + +------+ + Encounter Details +--------+ + + + + | Date | Type | Department | Care Team | Description | +--------+ + + + + | 03/20/ | Hospital | [facility] | Patrick Pinto | | | 2012 | Encounter | [facility] | MD John Paul [address] | | | | | [address] | [place] | | | | | [place] | [address] | | | | | [address] | [phone] | | | | [phone] | | | +--------+ + + + [...] + + + +---------+ + + | LIPITOR 40 MG | | | 0 | 01/18/20 | | | tablet | | | | 13 | 3 | + + + +---------+ [...] | | Take 1 tablet by | | 0 | | | | oxyCODONE-acetaminop | mouth every 4 hours | | | | 3 | | hen (PERCOCET) 5-325 [...] | + +--------+ + + + | CULTURE, MRSA | Routin | 03/20/2013 | | Results for this | | | e | 10:47 AM | | procedure are in the | | | | PDT | | results section. | + +--------+ + + + | PTT | Routin | 03/20/2013 | | Results for this | | | e | 10:47 AM | | procedure are in the | | | | PDT | | results section. | + +--------+ + + + | PROTIME INR | Routin | 03/20/2013 | | Results for this | | | e | 10:47 AM | | procedure are in the | | | | PDT | | results section. | + +--------+ + + + | CBC WITH | Routin | 03/20/2013 | | Results for this | | DIFFERENTIAL | e | 10:47 AM | | procedure are in the | | | | PDT | | results section. | + +--------+ + + + | COMPREHENSIVE | Routin | 03/20/2013 | | Results for this | | METABOLIC PANEL | e | 10:47 AM | | procedure are in the | | | | PDT | | results section. | + +--------+ + + + documented in this encounter Results PTT (03/20/2013 10:47 AM PDT) + + + + + + | Component | Value | Ref Range | Performed | Pathologist | | | | | At | Signature | + + + + + + | aPTT | 26.3Comment: Normal | 22.1 - 36.0 | [facility] | | | | Patient Mean Value: 29.0 | seconds | [facility] | | | | seconds | | MEDICAL | | | | | | CENTER - | | | | | | LABORATORY | | + + + + + + + + | Specimen | + + | | + + + + + | Narrative | Performed At | + + + | Collect By: | [facility] | | | [facility] | | | [facility] | | | - LABORATORY | + + + + + + + + | Performing | Address | City/State/Zipcode | Phone Number | | Organization | | | | + + + + + | [facility] | [address] | [place] | [phone] | | [facility] | | [address] | | | - LABORATORY | | | | + + + + + | [facility] | [address] | [place] | | | [facility] | | [address], [facility] | | | - LABORATORY | | | | + + + + + Protime INR (03/20/2013 10:47 AM PDT) + + + + + + | Component | Value | Ref Range | Performed | Pathologist | | | | | At | Signature | + + + + + + | Prothrombin | 12.0 | 11.3 - 13.9 | [facility] | | | Time | | seconds | [facility] | | | | | | MEDICAL | | | | | | CENTER - | | | | | | LABORATORY | | + + + + + + | PATIENT | 12.5 | seconds | [facility] | | | NORMAL MEAN | | | [facility] | | | | | | MEDICAL | | | | | | CENTER - | | | | | | LABORATORY | | + + + + + + | INR | 1.0Comment: INR: USUAL | 0.9 - 1.1 | [facility] | | | | ORAL ANTICOAGULATION | | [facility] | | | | RANGE | | MEDICAL | | | | 2.0-3.0 HIGH | | CENTER - | | | | LEVEL ORAL | | LABORATORY | | | | ANTICOAGULATION RANGE | | | | | | 2.5-3.5 | | | | + + + + + + + + | Specimen | + + | | + + + + + | Narrative | Performed At | + + + | Collect By: Nurse | [facility] | | | [facility] | | | [facility] | | | - LABORATORY | + + + + + + + + | Performing | Address | City/State/Zipcode | Phone Number | | Organization | | | | + + + + + | [facility] | [address] | [place], [place] | [phone] | | [facility] | | [address] | | | - LABORATORY | | | | + + + + + | [facility] | [address] | [place], [place] | | | [facility] | | [address], [facility] | | | - LABORATORY | | | | + + + + + Culture, MRSA (03/20/2013 10:47 AM PDT) + + + + + + | Component | Value | Ref Range | Performed | Pathologist | | | | | At | Signature | + + + + + + | MRSA | Negative for MRSA by | | [facility] | | | Culture | chromogenic agar method. | | [facility] | | | Only | | | MEDICAL | | | | | | CENTER - | | | | | | LABORATORY | | + + + + + + + + | Specimen | + + | Other - Other | + + + + + | Narrative | Performed At | + + + | Collect By: Nurse | [facility] | | | [facility] | | | MEDICAL CENTER | | | - LABORATORY | + + + + + + + + | Performing | Address | City/State/Zipcode | Phone Number | | Organization | | | | + + + + + | [facility] | [address] | [place], [place] | [phone] | | [facility] | | [address] | | | - LABORATORY | | | | + + + + + | [facility] | [address] | [place], [place] | | | [facility] | | [address] [place] [address] | | | - LABORATORY | | | | + + + + + CBC with Differential (03/20/2013 10:47 AM PDT) + + + + + + | Component | Value | Ref Range | Performed | Pathologist | | | | | At | Signature | + + + + + + | White Blood | 6.9 | 4.0 - 11.0 K/uL | [facility] | | | Cells | | [facility] | | | | | | MEDICAL | | | | | | CENTER - | | | | | | LABORATORY | | + + + + + + | Red Blood | 5.38 | 4.30 - 5.70 | [facility] | | | Cells | | M/uL | [facility] | | | | | | MEDICAL | | | | | | CENTER - | | | | | | LABORATORY | | + + + + + + | Hemoglobin | 16.0 | 13.5 - 18.0 | [facility] | | | | | gm/dL | [facility] | | | | | | MEDICAL | | | | | | CENTER - | | | | | | LABORATORY | | + + + + + + | Hematocrit | 48.6 | 40.0 - 51.0 % | [facility] | | | | | | [facility] | | | | | | MEDICAL | | | | | | CENTER - | | | | | | LABORATORY | | + + + + + + | MCV | 90.4 | 83.0 - 101.0 fL | [facility] | | | | | | [facility] | | | | | | MEDICAL | | | | | | CENTER - | | | | | | LABORATORY | | + + + + + + | MCH | 29.8 | 28.0 - 35.0 pg | [facility] | | | | | | [facility] | | | | | | MEDICAL | | | | | | CENTER - | | | | | | LABORATORY | | + + + + + + | MCHC | 33.0 | 32.0 - 36.0 | [facility] | | | | | g/dL | [facility] | | | | | | MEDICAL | | | | | | CENTER - | | | | | | LABORATORY | | + + + + + + | RDW-CV | 12.7 | <15.0 % | [facility] | | | | | | [facility] | | | | | | MEDICAL | | | | | | CENTER - | | | | | | LABORATORY | | + + + + + + | Platelet | 218 | 140 - 440 K/uL | [facility] | | | Count | | | [facility] | | | | | | MEDICAL | | | | | | CENTER - | | | | | | LABORATORY | | + + + + + + | % | 73.8 | 45 - 75 % | [facility] | | | Neutrophils | | | [facility] | | | | | | MEDICAL | | | | | | CENTER - | | | | | | LABORATORY | | + + + + + + | % | 18.7 (L) | 20 - 45 % | [facility] | | | Lymphocytes | | | [facility] | | | | | | MEDICAL | | | | | | CENTER - | | | | | | LABORATORY | | + + + + + + | % Monocytes | 6.0 | 4 - 12 % | [facility] | | | | | | [facility] | | | | | | MEDICAL | | | | | | CENTER - | | | | | | LABORATORY | | + + + + + + | % | 0.9 | 0 - 5 % | [facility] | | | Eosinophils | | | [facility] | | | | | | MEDICAL | | | | | | CENTER - | | | | | | LABORATORY | | + + + + + + | % Basophils | 0.6 | 0 - 1 % | [facility] | | | | | | [facility] | | | | | | MEDICAL | | | | | | CENTER - | | | | | | LABORATORY | | + + + + + + | Absolute | 5.1 | 1.5 - 6.6 K/uL | [facility] | | | Neutrophils | | | [facility] | | | | | | MEDICAL | | | | | | CENTER - | | | | | | LABORATORY | | + + + + + + | Absolute | 1.3 | 0.6 - 3.2 K/uL | [facility] | | | Lymphocytes | | | [facility] | | | | | | MEDICAL | | | | | | CENTER - | | | | | | LABORATORY | | + + + + + + | Absolute | 0.4 | 0.0 - 1.0 K/uL | [facility] | | | Monocytes | | | [facility] | | | | | | MEDICAL | | | | | | CENTER - | | | | | | LABORATORY | | + + + + + + | Absolute | 0.1 | 0.0 - 0.4 K/uL | [facility] | | | Eosinophils | | | [facility] | | | | | | MEDICAL | | | | | | CENTER - | | | | | | LABORATORY | | + + + + + + | Absolute | 0.0 | 0.0 - 0.1 K/uL | [facility] | | | Basophils | | | [facility] | | | | | | MEDICAL | | | | | | CENTER - | | | | | | LABORATORY | | + + + + + + + + | Specimen | + + | | + + + + + | Narrative | Performed At | + + + | Collect By: | [facility] | | | [facility] | | | [facility] | | | - LABORATORY | + + + + + + + + | Performing | Address | City/State/Zipcode | Phone Number | | Organization | | | | + + + + + | [facility] | [address] | [place] | [phone] | | [facility] | | [address] | | | - LABORATORY | | | | + + + + + | [facility] | [address] | [place] | | | [facility] | | [address], [facility] | | | - LABORATORY | | | | + + + + + Comprehensive Metabolic Panel (03/20/2013 10:47 AM PDT) + + + + + + | Component | Value | Ref Range | Performed | Pathologist | | | | | At | Signature | + + + + + + | Glucose | 101 | 70 - 109 mg/dL | [facility] | | | | | | [facility] | | | | | | MEDICAL | | | | | | CENTER - | | | | | | LABORATORY | | + + + + + + | Calcium | 9.0 | 8.3 - 10.5 | [facility] | | | | | mg/dL | [facility] | | | | | | MEDICAL | | | | | | CENTER - | | | | | | LABORATORY | | + + + + + + | Alkaline | 65 | 40 - 110 IU/L | [facility] | | | Phosphatase | | | [facility] | | | | | | MEDICAL | | | | | | CENTER - | | | | | | LABORATORY | | + + + + + + | AST | 27 | 10 - 42 IU/L | [facility] | | | | | | [facility] | | | | | | MEDICAL | | | | | | CENTER - | | | | | | LABORATORY | | + + + + + + | ALT | 34 | 6 - 45 IU/L | [facility] | | | | | | [facility] | | | | | | MEDICAL | | | | | | CENTER - | | | | | | LABORATORY | | + + + + + + | Bilirubin | 0.5 | 0.2 - 1.0 mg/dL | [facility] | | | Total | | | [facility] | | | | | | MEDICAL | | | | | | CENTER - | | | | | | LABORATORY | | + + + + + + | Total | 6.8 | 6.0 - 7.8 gm/dL | [facility] | | | Protein | | | [facility] | | | | | | MEDICAL | | | | | | CENTER - | | | | | | LABORATORY | | + + + + + + | Albumin | 4.0 | 3.2 - 5.0 gm/dL | [facility] | | | | | | [facility] | | | | | | MEDICAL | | | | | | CENTER - | | | | | | LABORATORY | | + + + + + + | BUN | 26 (H) | 7 - 18 mg/dL | [facility] | | | | | [facility] | | | | | | [facility]ICAL | | | | | | CENTER - | | | | | | LABORATORY | | + + + + + + | Creatinine | 1.03 | 0.60 - 1.30 | [facility] | | | | | mg/dL | [facility] | | | | | | MEDICAL | | | | | | CENTER - | | | | | | LABORATORY | | + + + + + + | Estimated | >60Comment: For | >60 mL/min/A | [facility] | | | GFR | -Americans, | | [facility] | | | | please multiply the | | MEDICAL | | | | result by 1.210 | | CENTER - | | | | This is an estimated GFR | | LABORATORY | | | | and is based on a | | | | | | standard adult | | | | | | body mass (A=1.73m2) and | | | | | | serum creatinine | | | | + + + + + + | BUN/Creatin | 25.2 (H) | 12 - 20 | [facility] | | | ine Ratio | | | [facility] | | | | | | MEDICAL | | | | | | CENTER - | | | | | | LABORATORY | | + + + + + + | Na | 139 | 136 - 149 mEq/L | [facility] | | | | | | [facility] | | | | | | MEDICAL | | | | | | CENTER - | | | | | | LABORATORY | | + + + + + + | K | 5.0 | 3.5 - 5.1 mEq/l | [facility] | | | | | | [facility] | | | | | | MEDICAL | | | | | | CENTER - | | | | | | LABORATORY | | + + + + + + | Cl | 105 | 98 - 109 mEq/l | [facility] | | | | | | [facility] | | | | | | MEDICAL | | | | | | CENTER - | | | | | | LABORATORY | | + + + + + + | CO2 | 26 | 24 - 31 mEq/L | [facility] | | | | | | [facility] | | | | | | MEDICAL | | | | | | CENTER - | | | | | | LABORATORY | | + + + + + + | Anion Gap | 13.0 | 6.0 - 17.0 | [facility] | | | | | | [facility] | | | | | | MEDICAL | | | | | | CENTER - | | | | | | LABORATORY | | + + + + + + + + | Specimen | + + | | + + + + + | Narrative | Performed At | + + + | Collect By: Nurse | [facility] | | | [facility] | | | [facility] | | | - LABORATORY | + + + + + + + + | Performing | Address | City/State/Zipcode | Phone Number | | Organization | | | | + + + + + | [facility] | [address] | [place], [place] | [phone] | | [facility] | | [address] | | | - LABORATORY | | | | + + + + + | [facility] | [address] | [place], [place] | | | [facility] | | [id number] [place] [address] | | | - LABORATORY | | | | + + + + + documented in this encounter Visit Diagnoses Not on filedocumented in this encounter"
--- OUTSIDE RECORDS SUMMARY | ~2020-06-28 | XMS | Encounter Summary ---
Demographics + + + | Address | [address] | | | [place] [address] | + + + | Home Phone | | + + + | Preferred Language | Unknown | + + + | Marital Status | | + + + | Jew Affiliation | Unknown | + + + | Race | White | + + + | Ethnic Group | Not or | + + + Author + + + | Author | [facility] | | | and [place] | + + + | Organization | [facility] | | [...] [place], | | | | | [place] [address] | | + + + + + | Wilian Krishna) | ECON | [address] | | | [place] | | [place], [place] | | | | | [address] | | + + + + + | Cathy Medina | ECON | [address] | | | | | [place], [place] | | | | | [address] | | + + + + + | Zachariah Medina | ECON | Unknown | + | + + + + + Care Team Providers + +------+ + | Care Aeronautical Products Sales Engineer Name | Role | Phone | + +------+ + | Chito Tarango MD | PCP | | + +------+ + Reason for Visit +--------+--------+ + | Reason | Onset | Comments | | | Date | | +--------+--------+ + | Other | 03/21/ | INSURANCE AUTHORIZATION | | | 2012 | | +--------+--------+ + Encounter Details +--------+ + + + + | Date | Type | Department | Care Team | Description | +--------+ + + + + | 03/21/ | Telephone | [facility] | Patrick Pinto | Other (INSURANCE | | 2012 | | [address] | [address] | AUTHORIZATION) | | | | [address] | [address] [place], [place] | | | | | [place], [place] | [address] | | | | | [address] | [phone] | | | | | [phone] | | | +--------+ + + + [...] this encounter Miscellaneous Notes Telephone Encounter - Maurisio Wu - 03/21/2013 11:16 AM Myesha from [facility] with approval: Approval of the following codes: 25132, 70955, 50363, 49163, 82169 Procedure: L5-S1 translaminal lami lumbar interbody fusion Case (approval) #: [id number] "we only approve the length of stay in the hospital (3 days are approved) and not the medic al necessity" documented in this encount er Plan of Treatment Not on filedocumented as of this encounter Visit Diagnoses Not on filedocumented in this encounter
--- OUTSIDE RECORDS SUMMARY | ~2020-06-28 | XMS | Encounter Summary ---
Demographics + + + | Address | [address] | | | [place] [address] | + + + | Home Phone | | + + + | Preferred Language | Unknown | + + + | Marital Status | | + + + | Cheondoism Affiliation | Unknown | + + + | Race | White | + + + | Ethnic Group | Not or | + + + Author + + + | Author | [facility] | | | and [place] | + + + | Organization | [facility] | | | [...] [place], | | | | | [place] [address] | | + + + + + | Wilian Krishna) | ECON | [address] | | | [place] | | [place], [place] | | | | | [address] | | + + + + + | Cathy Medina | ECON | [id number] | | | | | [place], [place] | | | | | [address] | | + + + + + | Zachariah Medina | ECON | Unknown | + | + + + + + Care Team Providers + +------+ + | Care Milling Planer Operator Name | Role | Phone | + +------+ + | Chito Tarango MD | PCP | | + +------+ + Reason for Visit Auth/Cert +--------+--------+ + + + + | Status | Reason | Specialty | Diagnoses / | Referred By | Referred To | | | | | Procedures | Contact | Contact | +--------+--------+ + + + + | | | | Diagnoses | | Vini, | | | | | | | Tommy Roberts, | | | | | Degenerative | | [address] | | | | | TFCC tear, | | [address] | | | | | right | | [place] | | | | | Procedures | | [address] Phone: | | | | | ME WRIST | | [phone] | | | | | ARTHROSCOP,E | | Fax: | | | | | XCIS TRIANG | | [phone] | | | | | CART | | | | | | | ARTHROSCOPY | | | | | | | WRIST with | | | | | | | tfcc | | | | | | | edebridement | | | +--------+--------+ + + + + Encounter Details +--------+ + + + + | Date | Type | Department | Care Team | Description | +--------+ + + + + | 06/26/ | Hospital | [facility] | | Degenerative TFCC | | 2019 | Encounter | [facility] | | tear, right | | | | [facility] | | | | | | OP [address] | | | | | | [place], [place] | | | | | | [address] | | | | | | [phone] | | | +--------+ + + + [...] + + + | Blood Pressure | 117/76 | 06/26/2019 11:35 AM | | | | | PDT | | + + + + + | Pulse | 85 | 06/26/2019 11:35 AM | | | | | PDT | | + + + + + | Temperature | 36.1 C (97 F) | 06/26/2019 11:16 AM | | | | | PDT | | + + + + + | Respiratory Rate | 16 | 06/26/2019 11:35 AM | | | | | PDT | | + + + + + | Oxygen Saturation | 95% | 06/26/2019 11:35 AM | | | | | PDT | | + + + + + | Inhaled Oxygen | - | - | | | Concentration | | | | + + + + + | Weight | 95.3 kg (210 lb) | 06/26/2019 9:27 AM | | | | | PDT | | + + + + + | Height | 182.9 cm (6') | 06/26/2019 9:27 AM | | | | | PDT | | + + + + + | Body Mass Index | 28.48 | 06/26/2019 9:27 AM | | | | | PDT | | + + + + + documented in this encounter Discharge Instructions Instructions Magdalena Hawkins RN - 06/26/2019Wrist/Forearm Surgery It may take a few days to fully recover from general anesthesia. For the next 24 hours: do not drive, operate heavy machinery or power tools, do not drink alcohol and do not make any major decisions or sign legal documents. We recommend following these guidelines until you a re no longer taking prescription medications. Avoid smoking as this can significantly delay the healing process. Diet: ? Start with liquids and light, easy to digest foods. As you feel up to it, slowly return t o your normal diet. ? Drink at least 6-8 glasses of water or other non-alcoholic fluids per day. Activity: ? Elevate your wrist/forearm as much as possible to reduce pain and swelling. ? Exercises of the shoulder and elbow are encouraged to prevent stiffness and pain (specifi sharron range of motion). BLOCK MAY LAST AROUND 10-12 HOURS; USE SLING UNTIL ELBOW CONTROL RETURNS THEN DISCARD Pain Relief: ? Take prescription pain medication as ordered. Pain medicine should be taken before pain b ecomes severe and repeated as prescribed. ? Check with your surgeon before resuming aspirin or aspirin products. What to Expect: ? Keep your dressings clean and dry. ? You may remove your dressing in 3 days (). You may place band-aids over the incis ion site at this time. ? You may shower with a plastic bad securely taped beyond the upper edge of the bandage. Do not submerse dressing in bath tub, hot tub, or pool. ? Some swelling is not unusual but significant swelling could mean the bandage is too tight and needs loosening; you may do this at home. When to call the Doctor ? Greenish or foul smelling drainage is noted. ? Temperature 101 degrees or greater. ? Increased pain, redness, or swelling. ? Persistent nausea and/or vomiting. IF YOU ARE HAVING SHORTNESS OF BREATH OR DIFFICULTY BREATHING, CALL [phone] IMMEDIATELY! Provision for after-hours and emergency care: If you have an emergency such as chest pain or shortness of breath please call . If you need the doctor after hours or on the weekends, please refer to the phone number [employer]. For [facility] offices located on [facility] and on [address] [place] [address] please call . This will take you to an answering service, who will then get you in contact with a medical professional. documented in this encounter Medications at Time of Discharge + + + +---------+ + + | Medication | Sig | Dispensed | Refills | Start | End Date | | | | | | Date | | + + + +---------+ + + | amitriptyline | Take 10 mg by mouth | | 0 | | | | (ELAVIL) 10 mg | DAILY | | | | | | tablet | | | | | | + + + +---------+ + + | Ascorbic Acid | Take 1,000 mg by | | 0 | | | | (VITAMIN C) 1000 MG | mouth Daily. | | | | | | tablet | | | | | | + + + +---------+ + + | atorvaSTATin | Take 40 mg by mouth | | 0 | | | | (LIPITOR) 40 mg | nightly. | | | | | | tablet | | | | | | + + + +---------+ + + | clonazePAM | Take 0.5 mg by mouth | | 0 | | | | (KLONOPIN) 0.5 mg | every 6 (six) hours | | | | | | tablet | as needed for | | | | | | | Anxiety. | | | | | + + + +---------+ + + | diphenhydrAMINE | Take 50 mg by mouth | | 0 | | | | (BENADRYL) 25 MG | every 6 (six) hours | | | | | | capsule | as needed for | | | | | | | Itching. | | | | | + + + +---------+ + + | | Take by mouth | | 0 | | | | Glucosamine-Chondroi | Daily. | | | | | | t-Vit C-Mn | | | | | | | (GLUCOSAMINE 1500 | | | | | | | COMPLEX PO) | | | | | | + + + +---------+ + + | ibuprofen | 600 mg. PRN | | 0 | | | | (ADVIL,MOTRIN) 600 | | | | | | | MG tablet | | | | | | + + + +---------+ + + | methocarbamol | Take 1 tablet by | 90 | 0 | 12/13/20 | | | (ROBAXIN) 750 mg | [...] | | Take 1-2 tablets by | 25 | 0 | 08/26/20 | | | oxyCODONE-acetaminop | mouth every 4 hours | tablet | | 19 | | | hen (PERCOCET) 5-325 | as needed for Pain. | | | | | | mg per tablet | | | | | | + + + +---------+ + + | venlafaxine | Take 37.5 mg by | | 0 | | | | (EFFEXOR XR) 37.5 mg | mouth daily with | | | | | | 24 hr capsule | breakfast. | | | | | + + + +---------+ + + documented as of this encounter Progress Notes Tomasz Duarte DO - 06/27/2019 7:19 PM PDTCalled for f/u 06/27/19 (1914), talked with pt, "haider reagan", block resolved, postop pain manageable, no PONV, no CP/SOB. No apparent anesthe tic complications. aysing er, Magdalena Moody RN - 06/26/2019 11:49 AM PDTPrescription Rx and discharge information given t o friend, at bedside, all questions answered. documented in th is encounter H&P Notes Tommy Martini MD - 06/26/2019 9:34 AM PDTFormatting of this note might be differen t from the original. [facility]: Orthopedic Surgery Date of visit:06/16/2019 Patient Name:Antonio Medina AGE: 61 y.o. :09/23/1957 CHIEF COMPLAINT: Wrist Pain (right) and Follow-up HPI HISTORY OF PRESENT ILLNESS Patient returns for follow-up of his right wrist. He is a 61-year-old male who felt a pop in the right wrist after lifting. He has used bracing and received an injection into the wr ist as well as the ECU sheath at his last visit and did not feel this was very helpful for h im. He continues with moderate to severe pain on a daily basis with activities. It is wors e with rotation. It improves with resting but never fully resolves. REVIEW OF SYSTEMS Review of Systems Constitutional: Negative. Eyes: Positive for visual disturbance. Respiratory: Positive for shortness of breath. Musculoskeletal: Positive for arthralgias. Psychiatric/Behavioral: Positive for sleep disturbance. All other systems reviewed and are negative. Past Medical History Diagnosis Date Asthma mild, no meds Hyperlipidemia Joint pain Kidney stones Other chronic pain lower back Sleep apnea doesnt wear CPAP Unspecified visual disturbance Past Surgical History Procedure Laterality Date APPENDECTOMY 07/2014 BACK SURGERY 2012 L5-S1 CHOLECYSTECTOMY 06/2014 COLONOSCOPY finger Left left index finger reattached - saw injury HARDWARE PRESENT KNEE ARTHROSCOPY Bilateral KNEE ARTHROSCOPY W/ ACL RECONSTRUCTION Left SHOULDER ARTHROSCOPY Left SPINE SURGERY 2012 L5-S1 Fusion TONSILLECTOMY TOTAL KNEE ARTHROPLASTY Left 2009 UNLISTED PROCEDURE ARTHROSCOPY URETEROSCOPY - CYSTOSCOPY - LASER Right 04/28/2016 Procedure: URETEROSCOPY - CYSTOSCOPY - LASER; Surgeon: Jordan Dunne MD; Location: [facility]; Service: Urology; Laterality: Right; Allergies Allergen Reactions Morphine Hives Ok to take oxycodone Prior to Admission medications Medication Sig Start Date End Date Taking? Authorizing Provider amitriptyline (ELAVIL) 10 MG tablet Take 10 mg by mouth. Yes Historical Provider ascorbic acid (VITAMIN C) 1000 MG tablet Take 1,000 mg by mouth daily. Yes Historical Provider atorvastatin (LIPITOR) 40 MG tablet Take 40 mg by mouth nightly. Yes Historical Provi georgina diphenhydrAMINE (BENADRYL) 25 mg capsule Take 50 mg by mouth every 6 (six) hours as needed for Itching. Yes Historical Provider ibuprofen (MOTRIN) 600 MG tablet 600 mg. Yes Historical Provider methocarbamol (ROBAXIN) 750 MG tablet Take 750 mg by mouth 4 (four) times daily as needed. Yes Historical Provider Multiple Vitamins-Minerals (MULTIVITAMIN WITH MINERALS) tablet Take 1 tablet by mouth daily . Yes Historical Provider oxyCODONE-acetaminophen (PERCOCET) 5-325 MG per tablet Take 1 tablet by mouth every 4 (four ) hours as needed for Pain. Yes Historical Provider venlafaxine (EFFEXOR-XR) 37.5 MG 24 hr capsule Take 37.5 mg by mouth daily with breakfast. Yes Historical Provider clonazePAM (KLONOPIN) 0.5 MG tablet Take 0.5 mg by mouth every 6 (six) hours as needed for Anxiety. Historical Provider tamsulosin (FLOMAX) 0.4 MG capsule Take 0.4 mg by mouth After dinner. Historical Provider venlafaxine (EFFEXOR-XR) 75 MG 24 hr capsule Take 1 capsule by mouth daily. 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 He appears well-developed and we ll-nourished. No distress. HENT: Nose: Nose normal. Mouth/Throat: Oropharynx is clear and moist. Eyes: Right eye exhibits no discharge. Left eye exhibits no discharge. Neck: Neck supple. Cardiovascular: Regular rhythm and intact distal pulses. Pulmonary/Chest: Effort normal. No respiratory distress. Abdomina/Gl: Soft. There is no tenderness. Musculoskeletal: He exhibits tenderness. He exhibits no edema. Lymphadenopathy: Right: No epitrochlear adenopathy present. Neurological: He is alert and oriented to person, place, and time. Skin: Skin is warm. Psychiatric: He has a normal mood and affect. His behavior is normal. Ortho Exam Examination of his right wrist shows normal sensation to light touch in his fingers. His c apillary refill is brisk and his radial pulses intact. He is tender over the TFCC of the wr ist and the ECU did not have as much pain today. His DRUJ was stable and his pain is exacer bated with ulnar deviation and flexion. He has no pain over the scaphoid and Avelar testing was negative for any instability. PROBLEM LIST Encounter Diagnosis Name Primary? Degenerative TFCC tear, right Yes ASSESSMENT & PLAN We reviewed his previous work-up including MRI and discussed options. He does feel it both ers him enough to consider surgery and I discussed the principles of arthroscopy. Reviewed the risks and benefits including but not limited to infection, bleeding, need for further pepe rgery, continued pain as well as nerve and vessel injury. Consent has been obtained and aspen dimas is planned for within the next 4 weeks. Primary Care Physician: Kin Martini MD 06/16/2019 This document has been prepared with [employer] voice recognition system. The possibility of "s ound alike" buttermaker errors, and additions, or deletions may occur. If there is any que stion with respect to clarity of the message being conveyed, please contact me directly for clarification. No changes from this visit 9 :34 AM PDTdocumented in this encounter Miscellaneous Notes Op Note - Tommy Martini MD - 06/26/2019 11:16 AM PDT [facility] Service: Orthopedic Surgery Operative Note Pre-operative Diagnosis: Right wrist pain with TFCC tear Post-operative Diagnosis: same Procedure(s): Right wrist arthroscopy with TFCC debridement Surgeon: Tommy Martini MD Concrete Placement Equipment Operator(s): None Anesthesia: Regional Estimated Blood Loss: Minimal Other: IV Fluids: 200 ml Indications: See pre-operative history and physical Findings: Central TFCC tear Complications: None Description of Procedure: Patient's right arm was marked in the preoperative area. He was taken to the operative suite where he was supine on the operative table. The right upper ex tremity was prepped and draped in a sterile orthopedic fashion with a sterile tourniquet and secured into a wrist arthroscopy traction tower. Timeout was verified. The joint was insufflated with Marcaine with epinephrine and a 3-4 portal established. The radial side of the joint was examined and the distal radius, scaphoid, and radiocarpal liga ments were noted intact and normal in appearance. The scapholunate ligament was also intact . The lunate appeared intact as well. Visualization proceeded towards the ulnar side of th e wrist where a central TFCC tear was identified as well as a dorsal synovitis. A 6R portal was established and a shaver introduced. The synovitis was debrided from the c apsule and the TFCC tear debrided as well. A suction basket was also used for the debrideme nt and the camera was later moved to the 6R portal. The lunotriquetral ligament was intact with no evidence of compromise and additional debridement was performed through the 3-4 port al. After final debridement, all incidents were removed. Portal sites were closed with nyl on suture and the tourniquet deflated at 20 minutes. Sterile dressings were applied and the patient was returned to the postanesthesia care unit in stable condition. Condition: stable Tommy Martini MD 06/26/2019 11:16 documented in th is encounter Plan of Treatment Not on filedocumented as of this encounter Procedures + +--------+ + + + | Procedure Name | Priori | Date/Time | Associated Diagnosis | Comments | | | ty | | | | + +--------+ + + + | STORED IMAGE | Routin | 06/26/2019 | | Results for this | | ORTHOPEDIC | e | 11:08 AM | | procedure are in the | | | | PDT | | results section. | + +--------+ + + + | ARTHROSCOPY WRIST | | 06/26/2019 | Degenerative TFCC | | | | | 10:36 AM | tear, right | | | | | PDT | | | + +--------+ + + + +---+--------+ | | Case | | | Notes | | | | | | ARTHRO | | | SCOPY | | | WRIST | | | with | | | tfcc | | | debrid | | | ement | +---+--------+ documented in this encounter Results STORED IMAGE ORTHOPEDIC (06/26/2019 11:08 AM PDT) + + | Specimen | + + | | + + + + + | Narrative | Performed At | + + + | Stored images were created by an independent practitioner and were | | | not interpreted by a radiologist. Please refer to the procedural | | | note for any report or interpretation of these images done by the | | | ordering physician. | | + + + documented in this encounter Visit Diagnoses + + | Diagnosis | + + | Degenerative TFCC tear, right - Primary | + + documented in this encounter Admitting Diagnoses + + | Diagnosis | + + | Degenerative TFCC tear, right | + + documented in this encounter Administered Medications + +---------+ +------+ +------+ | Medication Order | MAR | Action | Dose | Rate | Site | | | Action | Date | | | | + +---------+ +------+ +------+ | lactated ringers (LR) infusion | New Bag | 06/26/20 | | 30 mL/hr | | | at 30 mL/hr, Intravenous, | | 19 9:57 | | | | | CONTINUOUS, Starting Wed06/26/19 | | AM PDT | | | | | at 1015, TKO., Pre-op | | | | | | + +---------+ +------+ +------+ +---------+ +---+---+---+ | New Bag | 06/26/20 | | | | | | 19 9:40 | | | | | | AM PDT | | | | +---------+ +---+---+---+ +---+---+ | | | +---+---+ + +-------+ +------+---+---+ | midazolam (VERSED) 1 mg/mL | Given | 06/26/20 | 2 mg | | | | injection 2 mg 2 mg, | | 19 10:23 | | | | | Intravenous, ONCE, Wed06/26/19 at | | AM PDT | | | | | 1015, For 1 dose, PRE OP FOR | | | | | | | BLOCK, Pre-op | | | | | | + +-------+ +------+---+---+ +---+---+ | | | +---+---+ documented in this encounter
--- OUTSIDE RECORDS SUMMARY | ~2020-06-28 | XMS | Encounter Summary ---
Demographics + + + | Address | [address] | | | [place] [address] | + + + | Home Phone | | + + + | Preferred Language | Unknown | + + + | Marital Status | | + + + | Episcopal Affiliation | Unknown | + + + | Race | White | + + + | Ethnic Group | Not or | + + + Author + + + | Author | [facility] | | | and [place] | + + + | Organization | [facility] | | [...] [place], | | | | | [place] [address] | | + + + + + | Wilian Krishna) | ECON | [id number] | | | [place] | | [place], [place] | | | | | [address] | | + + + + + | Cathy Medina | ECON | [id number] | | | | | [place], [place] | | | | | [address] | | + + + + + | Zachariah Medina | ECON | Unknown | + | + + + + + Care Team Providers + +------+ + | Care Food Trades Assistants Name | Role | Phone | + +------+ + | Chito Tarango MD | PCP | | + +------+ + Encounter Details +--------+ + + + + | Date | Type | Department | Care Team | Description | +--------+ + + + + | 03/22/ | Abstract | [facility] | Patrick Pinto | | | 2012 | | [address] | MD [place] [address] | | | | | [facility] [address] | [address] [place] | | | | | [place] | [address] | | | | | [address] | [phone] | | | | | [phone] | | | +--------+ + + + [...]
--- OUTSIDE RECORDS SUMMARY | ~2020-06-28 | XMS | Encounter Summary ---
Demographics + + + | Address | [address] | | | [place] [address] | + + + | Home Phone | | + + + | Preferred Language | Unknown | + + + | Marital Status | | + + + | Gnosticist Affiliation | Unknown | + + + | Race | White | + + + | Ethnic Group | Not or | + + + Author + + + | Author | [facility] | | | and [place] | + + + | Organization | [facility] | | | [...] [place], | | | | | [place] [address] | | + + + + + | Wilian Krishna) | ECON | [address] | | | [place] | | [place], [place] | | | | | [address] | | + + + + + | Cathy Hanley | ECON | [address] | | | | | [place], [place] | | | | | [address] | | + + + + + | Zachariah Hanley | ECON | Unknown | + | + + + + + Care Team Providers + +------+ + | Care Special Needs Babysitter Name | Role | Phone | + +------+ + | Chito Tarango MD | PCP | | + +------+ + Reason for Visit + + + | Reason | Comments | + + + | Follow-up | 3 Month PO | + + + Encounter Details +--------+---------+ + + + | Date | Type | Department | Care Team | Description | +--------+---------+ + + + | 06/12/ | Office | [facility] | José Miguel oSria, | S/P lumbar fusion | | 2012 | Visit | NEUROSURGERY [address] | PA-C [address] | (Primary Dx) | | | | [address] | [place], [place] | | | | | [place], [place] | [address] | | | | | [address] | | | | | | [phone] | | | +--------+---------+ + + + [...] + + + | Blood Pressure | 148/78 | 06/12/2013 1:41 PM | | | | | PDT | | + + + + + | Pulse | 78 | 06/12/2013 1:41 PM | | | | | PDT | | + + + + + | Temperature | - | - | | + + + + + | Respiratory Rate | 18 | 06/12/2013 1:41 PM | | | | | PDT | | + + + + + | Oxygen Saturation | - | - | | + + + + + | Inhaled Oxygen | - | - | | | Concentration | | | | + + + + + | Weight | - | - | | + + + + + | Height | 182.9 cm (6') | 06/12/2013 1:41 PM | | | | | PDT | | + + + + + | Body Mass Index | - | - | | + + + + + documented in this encounter Patient Instructions Patient Instructions José Miguel Soria PA-C - 06/12/2013 1:52 PM PDTFusion is stable and looks good. Continue to do your best and not over do it. You are a head of the game as far as your recovery goes. P M PDT documented in this encounter Progress Notes José Miguel Soria PA-C - 06/12/2013 1:52 PM PDT José Miguel Soria PA-C [address] [facility] [address] [place] [address] FAX: NEUROSURGERY FOLLOW-UP CHIEF COMPLAINT: Chief Complaint Patient presents with Follow-up 3 Month PO HISTORY OF PRESENT ILLNESS: The patient is a 55 y.o. male that had a L5-S1 TLIF by Dr. Tatiana morales for lumbar stenosis around 3 months ago . He returns and overall is doing fairly wel l. The patient complains of left sided buttock aches, especially when active. The patient is not still taking narcotics for pain management. The patient has been walking as directed and has tried to remain active. Overall, the patient is pleased with his improvement. He has returned to work and has even transitioned from part days to full days and seems to be t olerating it well. PAST MEDICAL HISTORY: Past Medical History Diagnosis [...] smoked. He quit smokeless tobacco use about 10 month s ago. He reports that he drinks alcohol. He reports that he does not use illicit drugs. FAMILY HISTORY: Family History Problem Relation Age of Onset Stroke Mother Cancer Mother Arthritis Mother Hypertension Father Arthritis Father Arthritis Sister INTERIM PHYSICAL EXAMINATION: Blood pressure 148/78, pulse 78, resp. rate 18, height 1.829 m (6'). There is no weight on file to calculate BMI. GENERAL: Theodore Hanley is in no acute [...] PLAN: Overall, the patient is doing well. I was pleased to see at least some further improvement and expect more improvement with time. This was discussed with the patient today. I have increased the patient s activities further, and I would like the patient to continue to ad donahue with activities as tolerated and as directed. 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 He does get muscle spasm and aches occasional, but has improved overall. I spent 20 minutes in visit with Theodore Hanley today with the majority of time spent cou nselling the patient on his recovery and coordinating his future care. The patient will fol low-up with me in around 4 months for re-evaluation. ELECTRONICALLY SIGNED BY: José Miguel Soria PA-C, 06/12/2013 13:53 documented in this encounter Plan of Treatment Not on filedocumented as of this encounter Results XR Lumbar Spine 2 or 3 Vw (10/13/2013 9:39 AM [facility]) + + | Specimen | + + | | + + + + + | Narrative | Performed At | + + + | Merged With [facility] | [place] | | Department [address] [address] [facility] [place] | [facility] | | [ rep ct [address]] [ rep ct [facility] [place] | | st zip] Signed | - IMAGING | | | | | Patient Name: THEODORE HANLEY Physician: | | | [email or web address] : 09/23/1957 Age: 56 Sex: M Unit #: [id number] | | | Exam Date: 10/13/13 Location: [facility] | | | Report #: [id number] Page: | | | %(RAD)RES..mtdd.print.filter("pg") of %(RAD) | | | RES..mtdd.print.filter("tpg") | | | | | | Accession Number: [id number] | | | LUMBAR SPINE X-RAY CLINICAL [...] Transcribed Date/Time: 10/13/2013 | | | 10:54 Finish Production Manager: <<Signature | | | on File>> | | | Manuel | | | MD Thomas10/13/13 1152 <Electronically signed by Manuel Guzman MD> | | | Manuel Guzman MD 10/13/13 9138 Finish Production Manager: Christiano | | | Baiidbrcxhraf66/13/13 1054 José Miguel Soria PA-C | | | | | + + + + + + + + | Performing | Address | City/State/Zipcode | Phone Number | | Organization | | | | + + + + + | [facility] | [address] | [place] | [phone] | | [facility] | | [address] | | | - IMAGING | | | | + + + + + documented in this encounter Visit Diagnoses + + | Diagnosis | + + | S/P lumbar fusion - Primary Arthrodesis status | + + documented in this encounter
--- OUTSIDE RECORDS SUMMARY | ~2020-06-28 | XMS | Encounter Summary ---
Demographics + + + | Address | [address] | | | [place] [address] | + + + | Home Phone | | + + + | Preferred Language | Unknown | + + + | Marital Status | | + + + | Latter Day Affiliation | Unknown | + + + | Race | White | + + + | Ethnic Group | Not or | + + + Author + + + | Author | [facility] | | | and [place] | + + + | Organization | [facility] | | [...] [place], | | | | | [place] [address] | | + + + + + | Wilian Krishna) | ECON | [address] | | | [place] | | [place], [place] | | | | | [address] | | + + + + + | Cathy Medina | ECON | [address] | | | | | [place], [place] | | | | | [address] | | + + + + + | Zachariah Medina | ECON | Unknown | + | + + + + + Care Team Providers + +------+ + | Care Manager Of Warehouse Name | Role | Phone | + +------+ + | Chito Tarango MD | PCP | | + +------+ + Reason for Visit +--------+--------+ + | Reason | Onset | Comments | | | Date | | +--------+--------+ + | Other | 06/19/ | case request | | | 2018 | | +--------+--------+ + Encounter Details +--------+ + + + + | Date | Type | Department | Care Team | Description | +--------+ + + + + | 06/19/ | Telephone | [facility] | Faiza Ivy, | Other (case request) | | 2019 | | [facility] | Boom Operator | | | | | MEDICINE JORGE | | | | | | [address] | | | | | | [place], [place] | | | | | | [address] | | | | | | [phone] | | | +--------+ + + + [...] this encounter Miscellaneous Notes Telephone Encounter - Tommy Martini MD - 06/20/2019 7:58 AM PDTOrder signedElectro nically signed by Tommy Martini MD at 06/20/2019 7:58 AM PDTdocumented in this encou nter Plan of Treatment Not on filedocumented as of this encounter Visit Diagnoses + + | Diagnosis | + + | Degenerative TFCC tear, right - Primary | + + documented in this encounter"
--- OUTSIDE RECORDS SUMMARY | ~2020-06-28 | XMS | Encounter Summary ---
Demographics + + + | Address | [address] | | | [place] [address] | + + + | Home Phone | | + + + | Preferred Language | Unknown | + + + | Marital Status | | + + + | Roman Catholic Affiliation | Unknown | + + + | Race | White | + + + | Ethnic Group | Not or | + + + Author + + + | Author | [facility] | | | and [place] | + + + | Organization | [facility] | | | [...] [place], | | | | | [place] [address] | | + + + + + | Wilian Krishna) | ECON | [address] | | | [place] | | [place], [place] | | | | | [address] | | + + + + + | Cathy Hanley | ECON | [address] | | | | | [place], [place] | | | | | [address] | | + + + + + | Zachariah Hanley | ECON | Unknown | + | + + + + + Care Team Providers + +------+ + | Care Antique Automobiles Repairer Name | Role | Phone | + +------+ + | Chito Tarango MD | PCP | | + +------+ + Encounter Details +--------+ + + + + | Date | Type | Department | Care Team | Description | +--------+ + + + + | 03/22/ | Hospital | [facility] | Patrick Pinto | | | 2012 - | Encounter | MED CTR SURGICAL | MD John Paul [address] | | | | | [address] | [place], [place] | | | 03/23/ | | [place] [address] | [address] | | | 2012 | | [phone] | | | | | | | [...] | tablet | | | | | 3 | + [...] 1-2 tablets by | | 0 | 03/22/20 | | | oxyCODONE-acetaminop | mouth EVERY 4 TO 6 | | | 13 | 3 | | hen (PERCOCET) | HOURS NEEDED. | | | | | | 7.5-325 mg per | | | | | | | tablet | | | | | | + + + +---------+ + + documented as of this encounter Miscellaneous Notes Op Note - Patrick Pinto MD - 03/22/2013 3:42 [place] [address] Patient Name: THEODORE HANLEY Provider: Patirck Pinto MD Unit #: [id number] Locati on: 3ES : 09/23/1957 DATE: 03/22/2013 PROCEDURE TITLE 1. L5-S1 transforaminal lumbar arthrodesis with interbody device. 2. L5-S1 bilateral segm ental posterior pedicle screw arthrodesis. 3. L5-S1 posterior onlay arthrodesis. 4. L5 and S1 decompressive laminotomies for neural decompression. 5. Microsurgical techni que. 6. Bone marrow aspirate. 7. Local bone autograft. SURGEON: Patrick Pinto MD [employer]ANT SUPERVISOR: José Miguel Soria PA-C ANESTHESIA: General endotracheal by Ravindra Araujo MD PREOPERATIVE DIAGNOSES 1. Scoliosis. 2. Lumbar spondylolisthesis. 3. Lumbar instability. 4. Neural foraminal stenosis. 5. Degenerative disk disease. 6. Facet arthropathy. 7. Radiculopathy. POSTOPERATIVE 1. SCOLIOSIS. 2. LUMBAR SPONDYLOLISTHESIS. 3. LUMBAR INSTABILITY. 4. NEURAL FORAMINAL STENOSIS. 3. DEGENERATIVE DISK DISEASE. 5. FACET ARTHROPATHY. 6. RADICULOPATHY. INTRAOPERATIVE FINDINGS 1. Scoliosis. 2. Lumbar spondylolisthesis. 3. Lumbar instability. 4. Neural foraminal stenosis. 5. Degenerative disk disease. 6. Facet arthropathy. 7. Radiculopathy. SPECIMENS: None. ESTIMATED BLOOD LOSS: 144 mL. COMPLICATIONS: None. PROCEDURE TIME: 2-1/2 hours. INDICATIONS: Mr. Hanley is a 55-year-old gentleman who has a history of many years of back pain since a skiing accident when he was younger. He has attempted about every measure of c onservative management possible and has failed these. Therefore, after discussion of the ri sks, alternatives and benefits of surgical intervention in clinic, he has elected to provid e his informed consent for the following procedure. PROCEDURE DESCRIPTION: Mr. Hanley was brought in the operative suite in supine position on a stretcher and placed under general anesthesia without difficulty. He received 2 g Ancef p rophylactic antibiosis, 10 mg Decadron and 20 mg Pepcid. A Au catheter was placed under sterile technique, and he was placed in the prone position on the ProneView pillow on the [facility] frame. All of his pressure points were carefully padded and cushioned. He was f lexed to approximately 20 degrees. The lumbar skin was prepped and draped in the usual ster ile fashion. With assistance of AP and lateral fluoroscopy and a spinal needle, several inc isions for access into the L5 and S1 pedicles were marked. On the left side this was a long itudinal, approximately 4 cm incision. On the right side these were 2 transverse, approxima tely 2 cm, incisions. The skin was infused with approximately 10 mL 0.5% Marcaine with epin ephrine on each side and then a #10 blade was employed to open these incisions. Immaculate hemostasis was obtained with monopolar cautery and then the LINCOLN needles were employed to can nulate the pedicles, first at L5 and then at S1, with the assistance of AP and lateral fluo roscopy. Once cannulated, then bone marrow aspirate was obtained and guidewires were placed and the needles were removed. Once the wires were all placed, then on the right side throu gh the inferior incision the METRx sequential tubular dilation system was employed to perfo rm a transmuscular muscle-splitting, muscle-sparing approach to the right L5-S1 interspace. Once the retractor was docked, the microscope was brought in the field. The posterior manzanita ents, including the lamina, facet, pars and the root of the transverse process were all den uded. The facet itself was then drilled out and the lamina and other posterior elements as well to prepare for a Bayron style onlay arthrodesis. MasterGraft with bone marrow aspirate, as well as Alfalfa were then placed in an onlay fashion. The retractor was then withdrawn and attention turned to the left side where, in a similar fashion, the METRx was employed to perform a transmuscular muscle-splitting, muscle-sparing approach to the left L5-S1 inters pace. Here an osteotomy was performed and the bone was saved, cleaned, and morselized for u se later as autograft. The lamina of both L5 and S1 was resected and this allowed good deco mpression of the neural elements present there. A small shelf of bone was left to protect t he exiting L5 root. The traversing S1 root was noted to be medial and was well decompressed subsequent to decompression. Attention was turned to [facility], where diskectomy was then performed. The diskectomy was to prepare the endplates for arthrodesis as well as pro vide for direct and indirect neural decompression. Cartilaginous endplates were resected. T he bony endplates were preserved. A combination of curettes and rongeurs was employed to pe rform the diskectomy, and then subsequent to performing the diskectomy then biomechanical sp acer trials were placed. These were from [employer] and ultimately a 6 degree lordotic, 13 m m tall x 27 mm long Capstone control was placed and felt to be appropriate. Then a PEEK keny parris of this was then filled with approximately 1 mg of bone morphogenic protein, as well a s local bone autograft and bone marrow aspirate. Additional Mastergraft was placed anterior ly, combined with bone marrow aspirate, as well as local bone autograft with bone marrow as pirate and Alfalfa. The spacer was then placed into position per application technician specification and then deployed, then copious irrigation was applied, immaculate hemostasis obtained. Th e remainder of the disk space was then filled with Alfalfa and then some additional decompr ession of the exiting L5 root was performed and then copious irrigation once again applied. Immaculate hemostasis once again obtained. The retractor was then withdrawn under direct v isualization with bipolar cautery and microscope to ensure immaculate hemostasis. Then, att ention was turned to the placement of the pedicle screws. These were the Medtronic Sextant s crews and they were 7.5 mm in diameter, 45 mm in length at the L5 level, and 40 mm in lengt h at the S1 level. These were placed over the guidewires without difficulty and the wires w ere then removed. Two stab incisions, which were transverse, approximately 4 to 5 mm long, were then made approximately 5 cm cephalad of the previous incisions. Through these, then 2 prebent 45 mm, 5.5 mm diameter lordotic rods were passed into the tulips and towers. The t owers were then reduced after the bed was returned to the neutral position and then top nut s were applied and torqued to application technician specification. On the left side, the L5 tower th en unfortunately popped off and had to be reapplied, then subsequent to being reapplied the n the top nut was applied and torqued to application technician specification. Towers and the aiden ins erters were then removed and then copious irrigation was applied, immaculate hemostasis obta ined. The external muscle fascia was closed and reapproximated with interrupted, inverted 0 Vicryl suture; Brianna fascia closed with interrupted, inverted 0 Vicryl sutures; the deep dermis was closed with interrupted, inverted 2-0 Vicryl sutures; and the dermis was closed with interrupted, inverted 3-0 Vicryl sutures; and then on the left side with a running 4-0 Monocryl subcuticular. Mastisol and Steri- Strips were then applied over this. A sterile d ressing was applied over that. The patient was then returned to the supine position, the Fo camryn catheter was removed, and he was awoken from general anesthesia without apparent compli cations, having tolerated the procedure well. It should be noted a timeout was performed pr ior to initiation of the procedure, and all counts were reported as correct at the end of t he procedure. DICTATED BY: Patrick Pinto MD Neurosurgery JOB #: [id number] EXT JOB #:[id number] cc: AVINASH Russo <<Signature on File>> Patrick Pinto MD03/23/13 0839 < documented in this encounter Plan of Treatment Not on filedocumented as of this encounter Procedures + +--------+ + + + | Procedure Name | Priori | Date/Time | Associated Diagnosis | Comments | | | ty | | | | + +--------+ + + + | XR LUMBAR SPINE 2 OR | Routin | 03/23/2013 | | Results for this | | 3 VW | e | 9:00 AM | | procedure are in the | | | | PDT | | results section. | + +--------+ + + + documented in this encounter Results XR Lumbar Spine 2 or 3 Vw (03/23/2013 9:00 AM PDT) + + | Specimen | + + | | + + + + + | Narrative | Performed At | + + + | [facility] | [place] | | Department [address] [place] [address] | [facility] | | [ rep ct [address]] [ rep ct [facility] | | st zip] Signed | - IMAGING | | | | | Patient Name: THEODORE HANLEY Physician: | | | ARRE. : 09/23/1957 Age: 55 Sex: M Unit #: [id number] | | | Exam Date: 03/23/13 Location: [address] [place] [address] | | | Report #: [id number] Page: | | | %(RAD)RES..mtdd.print.filter("pg") of %(RAD) | | | RES..mtdd.print.filter("tpg") | | | | | | Accession Number: [id number] | | | LUMBAR SPINE CLINICAL HISTORY: POSTOP L5-S1 FUSION. | | | FINDINGS: Standing AP and lateral views of the lumbar | | | spine show 5 lumbar segments. Posterior pedicle screw and aiden | | | fixation has been performed across L5-S1. An interbody spacer is seen | | | in the interspace. Alignment is normally maintained. Vertebral body | | | heights are normal. No other bony abnormalities are seen. Adjacent | | | soft tissues are normal, with overlying back brace noted. | | | IMPRESSION: POSTOP L5-S1 DISKECTOMY AND FUSION. | | | Dictated Date/Time: 03/23/2013 09:00 Transcribed Date/Time: | | | 03/23/2013 09:10 Tire Fabricator: | | | <<Signature on File>> | | | | | | Santhosh Dejesus MD03/23/13 3995 <Electronically signed by | | | Santhosh Dejesus MD> Santhosh Dejesus MD 03/23/13 | | | 0900 Tire Fabricator: UnboundIDely Melo03/23/13 0910 | | | Patrick Pinto MD | | + + + + + + + + | Performing | Address | City/State/Zipcode | Phone Number | | Organization | | | | + + + + + | [facility] | [address] | [place] | [phone] | | [facility] | | [address] | | | - IMAGING | | | | + + + + + documented in this encounter Visit Diagnoses Not on filedocumented in this encounter
--- OUTSIDE RECORDS SUMMARY | ~2020-06-28 | XMS | Encounter Summary ---
Demographics + + + | Address | [address] | | | [place] [address] | + + + | Home Phone [...] Author + + + | Author | [facility] | | | and [place] | + + + | Organization | [facility] | | | [...] [place], | | | | | [place] [address] | | + + + + + | Wilian Krishna) | ECON | [id number] | | | [place] | | [place], [place] | | | | | [address] | | + + + + + | Cathy Medina | ECON | [id number] | | | | | [place], [place] | | | | | [address] | | + + + + + | Zachariah Medina | ECON | Unknown | + | + + + + + Care Team Providers + +------+ + | Care Supervisor [employer] Name | Role | Phone | + [...] | | | | Procedures | | [id number] Phone: | | | | | MD WRIST | | [phone] | | | | | ARTHROSCOP,E | | Fax: | | | | | XCIS TRIANG | | [phone] | | | | | CART | [...] Description | +--------+---------+ + + + | 06/26/ | Surgery | [facility] | Tommy Martini | ARTHROSCOPY WRIST | | 2018 | | [facility] | MD [address] | with tfcc | | | | [facility] | [address], | edebridement | | | | [address] | [place] [address] | | | | | [place], [place] | [phone] | | | | | [address] | | | | | | [phone] | | | +--------+---------+ + + + [...] + + + | Blood Pressure | 114/76 | 06/26/2019 11:30 AM | | | | | PDT | | + + + + + | Pulse | 84 | 06/26/2019 11:30 AM | | | | | PDT | | + + + + + | Temperature | 36.1 C (97 F) | 06/26/2019 11:16 AM | | | | | PDT | | + + + + + | Respiratory Rate | 16 | 06/26/2019 11:30 AM | | | | | PDT | | + + + + + | Oxygen Saturation | 96% | 06/26/2019 11:30 AM | | | | | PDT [...] weekends, please refer to the phone number fni by. For [facility] offices located on [facility] and on [address] [place] [address] please call . This will take you [...] | | 0 | | | | (ADVPAT REN) 600 | | | | | | [...] tablets by | 25 | 0 | 06/26/20 | | | oxyCODONE-acetaminop | mouth every [...] for f/u 06/27/19 (1914), talked with pt, "d oisubha fine", block resolved, postop pain manageable, no PONV, no CP/SOB. No apparent anesthe tic complications. aysing er, Magdalena Moody RN - 06/26/2019 11:49 AM PDTPrescription Rx and discharge information given t o friend, at bedside, all questions answered. documented in th is encounter H&P Notes Tommy Martini MD - 06/26/2019 9:34 AM PDTFormatting of this note might be differen t from the original. [facility]: Orthopedic Surgery Date of visit:06/16/2019 [...] L5-S1 Fusion TONSILLECTOMY TOTAL KNEE ARTHROPLASTY Left 2008 UNLISTED PROCEDURE ARTHROSCOPY URETEROSCOPY - CYSTOSCOPY - LASER Right 04/28/2016 Procedure: URETEROSCOPY - CYSTOSCOPY - LASER; Surgeon: Jordan Dunne MD; Location: [facility]; Service: Urology; Laterality: Right; [...] Take 1 capsule by mouth daily. 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 The possibility of "s ound alike" mill feeder errors, and additions, or deletions may occur. If there is any que stion with respect to clarity of the message being conveyed, please contact me directly for clarification. No changes from this visit 9 :34 AM PDTdocumented in this encounter Miscellaneous Notes Op Note - Tommy Martini MD - 06/26/2019 11:16 AM PDT [facility] er Service: Orthopedic Surgery Operative Note Pre-operative Diagnosis: Right wrist pain with TFCC tear Post-operative Diagnosis: same Procedure(s): Right wrist arthroscopy with TFCC debridement Surgeon: Tommy Martini MD Machine Cloth Examiner(s): None Anesthesia: Regional Estimated Blood Loss: Minimal [...] documented in this encounter Administered Medications + +--------+ +--------+------+ + | Medication Order | MAR | Action | Dose | Rate | Site | | | Action | Date | | | | + +--------+ +--------+------+ + | bupivacaine 0.5%-EPINEPHrine | Given | 06/26/20 | 19 mLs | | Arm-Righ | | 1:200,000 (PF) injection PRN, | | 19 11:07 | | | t Lower | | Starting Wed06/26/19 at 1107, | | AM PDT | | | | | Intra-op | | | | | | + +--------+ +--------+------+ + +---+---+ | | | +---+---+ + +---------+ [...] | | | | | Intravenous, ONCE, 06/26/19 at | | AM PDT | | | | | 1015, For 1 dose, PRE OP FOR | | | | | | | BLOCK, Pre-op | | | | | | + +-------+ +------+---+---+ +---+---+ | | | +---+---+ documented in this encounter
--- OUTSIDE RECORDS SUMMARY | ~2020-06-28 | XMS | Encounter Summary ---
Demographics + + + | Address | [address] | | | [place] [address] | + + + | Home Phone | | + + + | Preferred Language | Unknown | + + + | Marital Status | | + + + | [employer] Affiliation | Unknown | + + + [...] [place], | | | | | [place] [address] | | + + + + + | Wilian Krishna) | ECON | [address] | | | [place] | | [place], [place] | | | | | [address] | | + + + + + | Cathy Medina | ECON | [address] | | | | | [place], [place] | | | | | [address] | | + + + + + | Zachariah Medina | ECON | Unknown | + | + + + + + Care Team Providers + +------+ + | Care Muffler Installer Name | Role | Phone | + +------+ + | Chito Tarango MD | PCP | | + +------+ + Encounter Details +--------+ + + + + | Date | Type | Department | Care Team | Description | +--------+ + + + + | 04/28/ | Hospital | [facility] | Marlon Silva | Ureterolithiasis; | | 2015 - | Encounter | [facility] | MD [address] | Renal colic; | | | | CLINICAL DECISION | [facility] [place] | Intractable pain | | 04/29/ | | [address] | [id number] | | | 2016 | | [place] | | | | | | [address] | | | | | | [phone] | | | +--------+ + + + [...] + + + | Blood Pressure | 117/67 | 04/29/2016 9:39 AM | | | | | PDT | | + + + + + | Pulse | 80 | 04/29/2016 9:39 AM | | | | | PDT | | + + + + + | Temperature | 36.7 C (98.1 F) | 04/29/2016 9:39 AM | | | | | PDT | | + + + + + | Respiratory Rate | 16 | 04/29/2016 9:39 AM | | | | | PDT | | + + + + + | Oxygen Saturation | - | - | | + + + + + | Inhaled Oxygen | - | - | | | Concentration | | | | + + + + + | Weight | 90.2 kg (198 lb 13.8 | 04/29/2016 9:39 AM | | | | oz) | PDT | | + + + + + | Height | 182.9 cm (6') | 04/29/2016 9:39 AM | | | | | PDT | | + + + + + | Body Mass Index | 26.97 | 04/29/2016 9:39 AM | | | | | PDT | | + + + + + documented in this encounter Discharge Summaries Everardo Aparicio MD - 04/29/2016 9:10 AM PDTFormatting of this note might be different f rom the original. Discharge Summaries by Everardo Aparicio MD at 04/29/16909 Author: Everardo Aparicio MD Service: Hospitalist Author Type: Physician Filed: 04/29/16 1259 Date of Service: 04/29/16909 Status: Signed Prosthodontist/Owner: Everardo Aparicio MD (Physician) [facility] Service: Hospitalist Physician Discharge Summary Pt: Antonio Medina AGE/SEX: 58 y.o. male ROOM: 1115/1115-1 PCP: CHITO TARANGO : 09/23/1957 Admit date: 04/28/2016 Discharge date and time: 04/29/2016 9:10 AM Admitting Physician: Marlon Silva MD Discharge Physician: Everardo Aparicio MD Consults: DR. Boland Primary Discharge Diagnoses: Principal Problem: Ureteric colic Active Problems: Sleep apnea Other chronic pain Ureterolithiasis Resolved Problems: * No resolved hospital problems. * Secondary Discharge Diagnoses: Nill Discharged Condition: stable Significant Diagnostic Studies: SP Cystoscopy, right ureteroscopy, laser lithotripsy, stone basket extraction and stent 6 X 26 HPI and Hospital Course: 58-year-old gentleman with past medical history of joint pain, unspecified hyperlipidemia, presented with right ureteric stone leading to ARF. His ARF resolved. Cystoscopy, right ureteroscopy, laser lithotripsy, stone basket extraction and stent 6 X 26 He Had no CP, SOB, N/V, Diarrhea, Abdominal pain or NAV[place]. No constipation or change in bowel habits. No orthopnea or PND. Appetite is good without abdominal bloating. No cough or fever. No dizziness, lightheadedness or any symptoms suggestive of stroke. Discharge Vitals: Filed Vitals: 04/28/16 1919 04/28/16 2316 04/29/16 0411 04/29/16 0718 BP: 111/62 104/58 114/65 117/67 Pulse: 93 83 84 80 Temp: 98.1 F (36.7 C) 97.9 F (36.6 C) 98 F (36.7 C) 98.1 F (36.7 C) TempSrc: Oral Oral Oral Oral Resp: 18 16 16 16 Height: Weight: SpO2: 96% 96% 97% 97% Discharge Exam: Constitutional: Alert and oriented to person, place, and time. Appears well-developed and w ell-nourished. Cardiovascular: Normal rate, regular rhythm, normal heart sounds with S1 and S2 and intact distal pulses. Exam reveals no gallop and no friction rub. No murmur heard. Pulmonary/Chest: Effort normal and breath sounds normal. No stridor. No respiratory distres s. no wheezes. no rales. exhibits no tenderness. Abdominal: Soft. Bowel sounds are normal. exhibits no distension and no mass. There is no t enderness. There is no rebound and no guarding. Musculoskeletal: Normal range of motion.exhibits no tenderness. exhibits no edema. Neurological: Alert and oriented to person, place, and time. Has normal reflexes. display s normal reflexes. No cranial nerve deficit. Exhibits normal muscle tone. Coordination norm al. Skin: Skin is warm and dry. No rash noted. No erythema. No pallor. Psychiatric: Has a normal mood and affect. Behavior is normal. Judgment normal. LABS: Recent Labs Lab 04/29/16 0531 WBC 7.74 HGB 14.2 HCT 42.7 PLT 147* Recent Labs Lab 04/29/16 0531 04/28/16 1114 04/28/16 1016 NA 142 144 141 K 4.5 4.3 4.5 CL 110* 109 109 CO2 26 30 27 BUN 14 17 18 CREATININE 1.0 1.5* 1.5* Recent Labs Lab 04/29/16 0531 MG 2.1 Disposition: Home Patient Instructions: Medication List CONTINUE taking these medications ascorbic acid 1000 MG tablet Refills: 0 Commonly known as: VITAMIN C atorvastatin 40 MG tablet Refills: 0 Commonly known as: LIPITOR clonazePAM 0.5 MG tablet Refills: 0 Commonly known as: KlonoPIN diphenhydrAMINE 25 mg capsule Refills: 0 Commonly known as: BENADRYL methocarbamol 750 MG tablet Refills: 0 Commonly known as: ROBAXIN multivitamin with minerals tablet Refills: 0 oxyCODONE-acetaminophen 5-325 MG per tablet Refills: 0 Commonly known as: PERCOCET tamsulosin 0.4 MG capsule Refills: 0 Commonly known as: FLOMAX venlafaxine 37.5 MG 24 hr capsule Refills: 0 Commonly known as: EFFEXOR-XR Activity: activity as tolerated Diet: regular diet Wound Care: as directed Follow-Up: Jordan Dunne MD [address] [facility] [address] Schedule an appointment as soon as possible for a visit in 2 weeks Chito Tarango MD [address] [place] [address] In 1 week Signed: EVERARDO APARICIO MD 04/29/2016 9:10 AM Dictation software, [employer]imet[employer], used which may contain error for similar sounding words even af ter review. Personal communication requested for any clarification. Portions of this chart may have been copied from previous notes for continuity of care purp ose documented in this encounter Medications at Time [...] tablet by | 90 | 0 | //20 | | | (ROBAXIN) 750 mg | [...] documented as of this encounter Progress Notes Conversion Transaction, Provider Unknown - 04/29/2016 9:35 AM PDTFormatting of this note m ight be different from the original. Nurse Progress Note by Jeanne Wells RN at 04/29/16934 Author: Jeanne Wells RN Service: (none) Author Type: Registered Nurse Filed: 04/29/16939 Date of Service: 04/29/16934 Status: Signed Prosthodontist/Owner: Jeanne Wells RN (Registered Nurse) Pt stable and voices understanding of discharge instructions. Personal belongings with pt. Waiting for to arrived to provide transportation home. onver parris Transaction, Provider Unknown - 04/29/2016 9:14 AM PDT Nurse Progress Note by Jeanne Wells RN at 04/29/16913 Author: Jeanne Wells RN Service: (none) Author Type: Registered Nurse Filed: 04/29/16914 Date of Service: 04/29/16913 Status: Signed Prosthodontist/Owner: Jeanne Wells RN (Registered Nurse) Dr Markus avalos. onver parris Transaction, Provider Unknown - 04/29/2016 4:00 AM PDT Nurse Progress Note by Tracy Arevalo RN at 04/29/16399 Author: Tracy Arevalo RN Service: (none) Author Type: Registered Nurse Filed: 04/29/16 0412 Date of Service: 04/29/16399 Status: Signed Prosthodontist/Owner: Tracy Arevalo RN (Registered Nurse) Pt sleeping at this time; when woken, pt denies any pain at Rest; pt denies any questions or concerns at this time Tracy Arevalo onver parris Transaction, Provider Unknown - 04/29/2016 12:38 AM PDT Nurse Progress Note by Tracy Arevalo RN at 04/29/1637 Author: Tracy Arevalo RN Service: (none) Author Type: Registered Nurse Filed: 04/29/1642 Date of Service: 04/29/1637 Status: Signed Prosthodontist/Owner: Tracy Arevalo RN (Registered Nurse) Pt resting at this time; pt voided 450 cc clear, bloody urine; pt reports increased residua l pain post urination; pt currently rates pain at 4/10; pt medicated and instructed to infor m RN if additional pain medication is needed; pt states he understands; pt denies any furthe r questions or concerns at this time Tracy Arevalo onver parris Transaction, Provider Unknown - 04/28/2016 7:30 PM PDT Nurse Progress Note by Tracy Arevalo RN at 04/28/161929 Author: Tracy Arevalo RN Service: (none) Author Type: Registered Nurse Filed: 04/28/162046 Date of Service: 04/28/161929 Status: Signed Prosthodontist/Owner: Tracy Arevalo RN (Registered Nurse) Pt resting at this time s/p cystoscopy with ureteral stent placement; urine clear, red; pt c/o Mild pain to penis; pt declines pain medication at this time; pt instructed to inform R N if pain increases and medication is needed; pt states he understands; plan of care reviewe d with pt and pt states he understands; pt denies any questions or concerns at this time Anay Arevalo onver parris Transaction, Provider Unknown - 04/28/2016 5:05 PM PDT Nurse Progress Note by Jeanne Wells RN at 04/28/161704 Author: Jeanne Wells RN Service: (none) Author Type: Registered Nurse Filed: 04/28/161713 Date of Service: 04/28/161704 Status: Signed Prosthodontist/Owner: Jeanne Wells RN (Registered Nurse) Pt returned from PACU s/p lithotrypsy, basket stone removal, stent placement. Transported v ia bed per AVINASH AyoubU RN. onver parris Transaction, Provider Unknown - 04/28/2016 4:53 PM PDT Nurse Progress Note by Jeanne Wells RN at 04/28/161652 Author: Jeanne Wells RN Service: (none) Author Type: Registered Nurse Filed: 04/28/161653 Date of Service: 04/28/161652 Status: Signed Prosthodontist/Owner: Jeanne Wells RN (Registered Nurse) Telephone report received from AVINASH AyoubU RN. onver parris Transaction, Provider Unknown - 04/28/2016 2:12 PM PDT Nurse Progress Note by Jeanne Wells RN at 04/28/16 141 Author: Jeanne Wells RN Service: (none) Author Type: Registered Nurse Filed: 04/28/161412 Date of Service: 04/28/161411 Status: Signed Prosthodontist/Owner: Jeanne Wells RN (Registered Nurse) Pt to [facility] via bed per Naty Saldana for PACU. onver parris Transaction, Provider Unknown - 04/28/2016 12:39 PM PDT Progress Notes by Ashleigh King RPH at 04/28/16 1239 Author: Ashleigh King RPH Service: (none) Author Type: Pharmacist Filed: 04/28/16 1239 Date of Service: 04/28/16 1239 Status: Signed Prosthodontist/Owner: Ashleigh King RPH (Pharmacist) Renal Dosing Monitoring: Antonio Medina 58 y.o. male Pharmacy dosing for renal function per Dr. Silva Estimated Creatinine Clearance: 58.9 mL/min (by C-G formula based on Cr of 1.5). Plan per protocol: At present, medications do not require adjustment for renal function. Pharmacy will continue monitoring patient for appropriate dosing per renal function. 04/28/2016 12:39 PM Pharmacist: Ashleigh King >> DAMON HAYNES 04/28/2016 11:20 Renal Dosing Monitoring: Antonio Medina 58 y.o. male Pharmacy dosing for renal function per Dr. Silva Medication(s): no height charted, no recent labs Plan per protocol: Medication / Dose: will revisit profile and do renal assessment when information is availab le. Pharmacy will continue monitoring patient for appropriate dosing per renal function. 04/28/2016 11:20 AM Pharmacist: DAMON HAYNES onver parris Transaction, Provider Unknown - 04/28/2016 11:20 AM PDT Progress Notes by Damon Haynes RPH at 04/28/16 1120 Author: Damon Haynes RPH Service: (none) Author Type: Pharmacist Filed: 04/28/16 1120 Date of Service: 04/28/16 1120 Status: Signed Prosthodontist/Owner: Damon Haynes RPH (Pharmacist) Renal Dosing Monitoring: Antonio Medina 58 y.o. male Pharmacy dosing for renal function per Dr. Silva Medication(s): no height charted, no recent labs Plan per protocol: Medication / Dose: will revisit profile and do renal assessment when information is availab le. Pharmacy will continue monitoring patient for appropriate dosing per renal function. 04/28/2016 11:20 AM Pharmacist: DAMON HAYNES onver parris Transaction, Provider Unknown - 04/28/2016 10:59 AM PDT Nurse Progress Note by Jeanne Wells RN at 04/28/16 1059 Author: Jeanne Wells RN Service: (none) Author Type: Registered Nurse Filed: 04/28/16 1100 Date of Service: 04/28/16 1059 Status: Signed Prosthodontist/Owner: Jeanne Wells RN (Registered Nurse) Pt transferred from ED 05 to U 1115 via w/c per this RN. Bedside report received from Arabella montero ED RN. docume nted in this encounter H&P Notes Marlon Silva MD - 04/28/2016 9:03 AM PDTFormatting of this note might be differe nt from the original. H&P by Marlon Silva MD at 04/28/16 09 Author: Marlon Silva MD Service: Hospitalist Author Type: Physician Filed: 04/29/16 1543 Date of Service: 04/28/16902 Status: Signed Prosthodontist/Owner: Marlon Silva MD (Physician) Related Notes: Original Note by Marlon Silva MD (Physician) filed at 04/28/16 11 26 [facility] Service: Hospitalist Admission History & Physical Date of Admission: 04/28/2016 Requesting Physician: Dr. Viera, Emergency Department Reason for Admission: Ureteric colic, ureterolithiasis. History Obtained From: patient CHIEF COMPLAINT: Right flank pain HISTORY OF PRESENT ILLNESS The patient is 58 y.o. male with significant past medical history of chronic back pain. He presented to [facility] Emergency Department 2 days ago with sudden onset of right flank and right lower quadrant pain. At that time, the patient was treated conservatively and sent home. However, the patient's pain remained constant and continuous, hence he required anoth er visit to the emergency department of [facility] in [place] yesterday. At th at time, CT of the abdomen showed a 6-mm stone in the right mid ureter with mild to moderate hydronephrosis. His initial creatinine 2 days ago was 1.1, but it went up to 1.32 yesterday . The patient again came to the emergency department of this hospital today as the pain did not get better. His creatinine has further gone up to 1.5 today. He continues to deny any ur inary symptoms, fevers, or chills. He had appendectomy done 1 year ago and was told that he has small stones in both kidneys, but they never bothered him in the past. No family history of kidney stones. REVIEW OF SYSTEMS Review of Systems Constitutional: Negative. HENT: Negative. Eyes: Negative. Respiratory: Negative. Cardiovascular: Negative. Gastrointestinal: Positive for abdominal pain. Endocrine: Negative. Genitourinary: Negative. Musculoskeletal: Positive for back pain. Allergic/Immunologic: Negative. Neurological: Negative. Hematological: Negative. Psychiatric/Behavioral: Negative. Past Medical History Diagnosis Date Joint pain Unspecified visual disturbance Sleep apnea doesnt wear CPAP Hyperlipidemia Asthma mild, no meds Other chronic pain lower back Kidney stones Past Surgical History Procedure Laterality Date Back surgery 2011 L5-S1 Knee arthroscopy w/ acl reconstruction Left Knee arthroscopy Bilateral Shoulder arthroscopy Left Colonoscopy Tonsillectomy Total knee arthroplasty Left 2009 Cholecystectomy 06/2014 Appendectomy 07/2014 Finger Left left index finger reattached - saw injury No current facility-administered medications on file prior to encounter. Current Outpatient Prescriptions on File Prior to Encounter Medication Sig Dispense Refill ascorbic acid (VITAMIN C) 1000 MG tablet Take 1,000 mg by mouth daily. atorvastatin (LIPITOR) 40 MG tablet Take 40 mg by mouth nightly. clonazePAM (KLONOPIN) 0.5 MG tablet Take 0.5 mg by mouth every 6 (six) hours as needed for Anxiety. methocarbamol (ROBAXIN) 750 MG tablet Take 750 mg by mouth 4 (four) times daily. Multiple Vitamins-Minerals (MULTIVITAMIN WITH MINERALS) tablet Take 1 tablet by mouth d aily. oxyCODONE-acetaminophen (PERCOCET) 5-325 MG per tablet Take 1 tablet by mouth every 4 ( four) hours as needed for Pain. venlafaxine (EFFEXOR-XR) 37.5 MG 24 hr capsule Take 37.5 mg by mouth daily with breakfa st. 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 Social History Main Topics Smoking status: Never Smoker Smokeless tobacco: Former User Quit date: 11/22/2011 Comment: about 20 years of chewing tobaco Alcohol Use: No Comment: occ Drug Use: No Sexual Activity: Not on file Other Topics Concern Not on file Social History Narrative History Smoking status Never Smoker Smokeless tobacco Former User Quit date: 11/22/2011 Comment: about 20 years of chewing tobaco History Alcohol Use No Comment: occ PHYSICAL EXAM Vital Signs: BP 114/70 mmHg | Pulse 95 | Temp(Src) 99.4 F (37.4 C) (Temporal) | Resp 16 | Wt 90.2 kg (198 lb 13.7 oz) | SpO2 95% Physical Exam Constitutional: He is oriented to person, place, and time. He appears well-developed and we ll-nourished. HENT: Mouth/Throat: No oropharyngeal exudate. Eyes: Pupils are equal, round, and reactive to light. No scleral icterus. Neck: Neck supple. No JVD present. Cardiovascular: Normal rate, regular rhythm and intact distal pulses. Exam reveals no gall op and no friction rub. No murmur heard. Pulmonary/Chest: Effort normal and breath sounds normal. No respiratory distress. He has no wheezes. He has no rales. He exhibits no tenderness. Abdomina/Gl: Soft. Bowel sounds are normal. He exhibits no distension and no mass. There is no rebound and no guarding. No hernia. Mild right CVA and RLQ tenderness. Musculoskeletal: He exhibits no edema or tenderness. Neurological: He is alert and oriented to person, place, and time. Psychiatric: He has a normal mood and affect. His behavior is normal. Judgment and thought content normal. Vitals reviewed. DATA CBC: No results found for: WBC, RBC, HGB, HCT, MCV, MCH, MCHC, RDW, PLT, MPV, DIFFTYPE WBC: No results found for: WBC, NEUTABSMAN, NEUTROABS, NEUTROMAN, LYMPHOABS, LYMPHOMAN, LY MPHSABS, LYMPHOPCT, MONOABSMAN, MONOMAN, MONOPCT, EOSINOABS, EOSINOMAN, EOSABS, EOSPCT, BASO ABSMAN, BASOSABS, BASOSMAN, BASOPCT, PLTEST, BANDSPCT, NRBC, METAABS, METAPCT, MYELOABS, MYE LOPCT, PROLYMPHPCT, PROLYMPHABS, PROMYELOABS, PROMYELOPCT, BLASTSABS, BLASTSPCT, ATYLMPCT, A TYLYMABS, OTHCELLABS, OTHCELLPCT, COMDIFF CMP: No results found for: NA, K, CL, CO2, ANIONGAP, GLUF, BUN, CREATININE, BCR, CA, PROT, ALB, GLOB, AGRATIO, BILITOT, ALP, AST, ALT, EGFR BMP: No results found for: NA, K, CL, CO2, ANIONGAP, GLUF, BUN, CREATININE, BCR, CA, EGFR U/A: Lab Results Component Value Date CLARITYU CLEAR 04/28/2016 LEUKOCYTESUR NEGATIVE 04/28/2016 NITRITE NEGATIVE 04/28/2016 UROBILINOGEN NORMAL 04/28/2016 UPRO NEGATIVE 04/28/2016 PHUR 5.0 04/28/2016 BLOODU SMALL* 04/28/2016 KETONES NEGATIVE 04/28/2016 BILIRUBINUR NEGATIVE 04/28/2016 GLUCOSEU NEGATIVE 04/28/2016 PROBLEM LIST Principal Problem: Ureteric colic Active Problems: Sleep apnea Other chronic pain Ureterolithiasis ASSESSMENT & PLAN 1. Impacted right ureteral stone causing acute kidney injury and right hydronephrosis. This stone is unlikely to pass. Hence, Dr. Dunne was consulted who was kind enough to see the pa minna in the emergency department and is planning to take him to the Dr. sometime this after noon. He will do cystoscopy and ureteroscopy and try to remove the stone. He will also place a stent to the right ureter. We will follow renal function very closely. In my opinion, the patient will need observation overnight after the procedure and, if his pain gets under con trol and kidney function starts improving, then he will be discharged home tomorrow to be fo llowed by Dr. Dunne. 2. DVT prophylaxis with subcutaneous heparin. 3. History of obstructive sleep apnea. 4. Chronic back pain. He will need narcotics for pain control. Disposition: Observation Code Status: No Order Primary Care Physician: CHITO Silva MD 04/28/2016 documented in this encounter Consult Notes Jordan Dunne MD - 04/28/2016 3:04 PM PDT Consult* by Jordan Dunne MD at 04/28/16 1500 Author: Jordan Dunne MD Service: (none) Author Type: Physician Filed: 04/30/16 1323 Date of Service: 04/28/16 1507 Status: Signed Prosthodontist/Owner: Jordan Dunne MD (Physician) Related Notes: Original Note by Jordan Dunne MD (Physician) filed at 04/28/16 1705 [facility] Service: Urology Initial Consult Note Date of Admission: 04/28/2016 Reason for Consultation: 1. Right urolithiasis 2. Right flank pain 3. Right hydronephrosis 4. Acute renal failure Requesting Physician: Dr. Silva, Hospitalist History Obtained From: patient CHIEF COMPLAINT: As above HISTORY OF PRESENT ILLNESS HISTORY OF PRESENT ILLNESS This is a 58-year-old male consulted from Dr. Silva for the above. Patient reports acute onset of his pain approximately 2 to 3 weeks ago. Pain has been persistent and he has had 3 visits to the ER with no resolution. Patient reports that he still has the pain. He was advi sed today to follow up in the ER at [facility]. He was subsequently admi tted. His pain is currently rated at 7-8/10 and is located in the right flank radiating down to the right scrotal area and is described as colicky. He denies any fever but does report history of hematuria which has been ongoing since his episode of pain. He reports some urgen cy and frequent. A consult is requested for further evaluation and management. REVIEW OF SYSTEMS Negative except for pertinent items noted in HPI. Past Medical History Diagnosis Date Joint pain Unspecified visual disturbance Sleep apnea doesnt wear CPAP Hyperlipidemia Asthma mild, no meds Other chronic pain lower back Kidney stones Past Surgical History Procedure Laterality Date Back surgery 2011 L5-S1 Knee arthroscopy w/ acl reconstruction Left Knee arthroscopy Bilateral Shoulder arthroscopy Left Colonoscopy Tonsillectomy Total knee arthroplasty Left 2009 Cholecystectomy 06/2014 Appendectomy 07/2014 Finger Left left index finger reattached - saw injury Spine surgery 2011 L5-S1 Fusion Hardware present Unlisted procedure arthroscopy Allergies Allergen Reactions Morphine Hives Ok to take oxycodone Prescriptions prior to admission Medication Sig Dispense Refill Last Dose ascorbic acid (VITAMIN C) 1000 MG tablet Take 1,000 mg by mouth daily. 04/27/2016 at U nknown time atorvastatin (LIPITOR) 40 MG tablet Take 40 mg by mouth nightly. 04/27/2016 at Unknown time clonazePAM (KLONOPIN) 0.5 MG tablet Take 0.5 mg by mouth every 6 (six) hours as needed for Anxiety. 04/27/2016 at Unknown time diphenhydrAMINE (BENADRYL) 25 mg capsule Take 50 mg by mouth every 6 (six) hours as nee ded for Itching. 04/28/2016 at Unknown time methocarbamol (ROBAXIN) 750 MG tablet Take 750 mg by mouth 4 (four) times daily. Past Week at Unknown time Multiple Vitamins-Minerals (MULTIVITAMIN WITH MINERALS) tablet Take 1 tablet by mouth d aily. 04/27/2016 at Unknown time oxyCODONE-acetaminophen (PERCOCET) 5-325 MG per tablet Take 1 tablet by mouth every 4 ( four) hours as needed for Pain. 04/28/2016 at 0400 tamsulosin (FLOMAX) 0.4 MG capsule Take 0.4 mg by mouth After dinner. 04/27/2016 at U nknown time venlafaxine (EFFEXOR-XR) 37.5 MG 24 hr capsule Take 37.5 mg by mouth daily with breakfa st. 04/27/2016 at Unknown time Scheduled Medications ascorbic acid 1,000 mg Oral Daily atorvastatin 40 mg Oral Nightly ceFAZolin 2 g Intravenous Parts Sales Counterperson to OR heparin (porcine) 5000 unit/0.5mL 5,000 Units Subcutaneous Q8H venlafaxine 37.5 mg Oral Daily with breakfast Continuous Infusions electrolyte-A 30 mL/hr at 04/28/16 1435 sodium chloride (IV) 125 mL/hr at 04/28/16 1115 PRN Medications acetaminophen OR acetaminophen, clonazePAM, fentaNYL OR fentaNYL, [MAR Hold] methoc arbamol, ondansetron OR ondansetron, oxyCODONE-acetaminophen, polyethylene glycol, zolpi dem Family History Problem Relation Age of Onset COPD Mother Asthma Mother Stroke Mother Vascular Dis Father carotid endarterectomy Arthritis/Rheumatoid Sister and Fibromyalgia Asthma Son History Social History Marital Status: Spouse Name: N/A Number of Children: N/A Years of Education: N/A 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 Social History Main Topics Smoking status: Never Smoker Smokeless tobacco: Former User Quit date: 11/22/2011 Comment: about 20 years of chewing tobaco Alcohol Use: No Comment: occ Drug Use: No Sexual Activity: Not on file Other Topics Concern Not on file Social History Narrative PHYSICAL EXAM Vital Signs: BP 98/59 mmHg | Pulse 80 | Temp(Src) 98.3 F (36.8 C) (Oral) | Resp 18 | Ht 1.829 m (6') | Wt 90.2 kg (198 lb 13.7 oz) | BMI 26.96 kg/m2 | SpO2 98% Temp: [97.8 F (36.6 C)-99.4 F (37.4 C)] 98.3 F (36.8 C) (04/28 1103) BP: (98-122)/(59-74) 98/59 mmHg (04/28 1103) Heart Rate: [80-100] 80 (04/28 1103) Resp: [16-20] 18 (04/28 1103) SpO2: [95 %-99 %] 98 % (04/28 1103) Height: [182.9 cm (6')] 182.9 cm (6') (04/28 1103) Weight: [90.2 kg (198 lb 13.7 oz)] 90.2 kg (198 lb 13.7 oz) (04/28 1103) BMI (Calculated): [27] 27 (04/28 1103) General appearance: alert, appears stated age, cooperative and moderate distress Back: symmetric, no curvature. ROM normal. right CVA tenderness. Lungs: clear to auscultation bilaterally Heart: regular rate and rhythm, S1, S2 normal, no murmur, click, rub or gallop Abdomen: soft, right flank tender; bowel sounds normal; no masses, no organomegaly Male genitalia: normal Neurologic: alert and oriented DATA Medical Record Review: reviewed PROBLEM LIST Principal Problem: Ureteric colic Active Problems: Sleep apnea Other chronic pain Ureterolithiasis ASSESSMENT & PLAN 1. Reviewed Ct and labs. 2. Discussed options. 3. Elects for cystoscopy and stent, possible right ureteroscopy and indicated procedure; ri sks and benefits reviewed and he elects to proceed. Code Status: Full Code Primary Care Physician: CHITO TARANGO Thank you for allowing me to participate in the care of this patient. Please call if there are any additional questions. JORDAN DUNNE MD 04/28/2016 documente d in this encounter ED Notes Conversion Transaction, Provider Unknown - 04/28/2016 7:10 AM PDTFormatting of this note m ight be different from the original. ED Notes by Chandni Locke RN at 04/28/16 0710 Author: Chandni Locke RN Service: (none) Author Type: Registered Nurse Filed: 04/28/1611 Date of Service: 04/28/16709 Status: Addendum Prosthodontist/Owner: Chandni Locke RN (Registered Nurse) Related Notes: Original Note by Chandni Locke RN (Registered Nurse) filed at 04/28/16 0 711 Bedside report received from SARAH So. Chart reviewed. Two patient identifiers used to confirm patient. Patient asked to visually verify name band. Call light within reach, and side rail up x . Patient updated on status. Patient reports current pain level 4/10. Chandni Locke RN 04/28/16710 Chandni Locke RN 04/28/16710 Prema Merrill MD - 04/28/2016 6:20 AM PDTFormatting of this note might be different from the or iginal. ED Provider Notes by Lesli Viera MD at 04/28/16619 Author: Lesli Viera MD Service: (none) Author Type: Physician Filed: 04/28/16 1453 Date of Service: 04/28/16619 Status: Signed Prosthodontist/Owner: Lesli Viera MD (Physician) [facility] Department of Emergency Medicine 6:25 AM History of Present Illness Patient Identification Antonio Medina is a 58 y.o. male. Patient information was obtained from patient. History/Exam limitations: none. Patient presented to the Emergency Department by: Car Chief Complaint Chief Complaint Patient presents with Flank Pain Known Kidney stone The patient complains of right flank pain. Onset of symptoms was over the last couple of da ys, with an ongoing course since that time. The patient states he was seen at the ED in [facility] on Wednesday, 04/26, and yesterday and was diagnosed with a kidney stone. The patient stat es he had two CTs done which showed a 6mm stone that is "stuck senior care between the kidney an d the bladder". Patient states his labs were normal at that time. The patient states he was started on Flomax and percocet, however he has not been able to manage his pain. The patient states he has been taking 1 percocet at a time which causes him to itch, so he is also taki ng Benadryl. Patient does not have a urologist. The patient also complains of subjective fev er and nausea "when the pain is bad" (not currently), and hematuria. Denies chills, dysuria, testicular pain, vomiting, or any other symptoms. Care prior to arrival consisted of one pe rcocet at 4 AM, with some relief. Patient has never had a kidney stone in the past. Hx of cholecystectomy. Past Medical History Diagnosis Date Joint pain Unspecified visual disturbance Sleep apnea doesnt wear CPAP Hyperlipidemia Asthma mild, no meds Other chronic pain lower back Kidney stones Past Surgical History Procedure Laterality Date Back surgery 2011 L5-S1 Knee arthroscopy w/ acl reconstruction Left Knee arthroscopy Bilateral Shoulder arthroscopy Left Colonoscopy Tonsillectomy Total knee arthroplasty Left 2009 Cholecystectomy 06/2014 Appendectomy 07/2014 Finger Left left index finger reattached - saw injury Spine surgery 2011 L5-S1 Fusion Hardware present Unlisted procedure arthroscopy Prior to Admission medications Medication Sig Start Date End Date Taking? Authorizing Provider ascorbic acid (VITAMIN C) 1000 MG tablet Take 1,000 mg by mouth daily. Historical Provid er atorvastatin (LIPITOR) 40 MG tablet Take 40 mg by mouth nightly. Historical Provider clonazePAM (KLONOPIN) 0.5 MG tablet Take 0.5 mg by mouth every 6 (six) hours as needed for Anxiety. Historical Provider methocarbamol (ROBAXIN) 750 MG tablet Take 750 mg by mouth 4 (four) times daily. Histori barry Provider Multiple Vitamins-Minerals (MULTIVITAMIN WITH MINERALS) tablet Take 1 tablet by mouth daily . Historical Provider oxyCODONE-acetaminophen (PERCOCET) 5-325 MG per tablet Take 1 tablet by mouth every 4 (four ) hours as needed for Pain. Historical Provider venlafaxine (EFFEXOR-XR) 37.5 MG 24 hr capsule Take 37.5 mg by mouth daily with breakfast. 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 Social History Main Topics Smoking status: Never Smoker Smokeless tobacco: Former User Quit date: 11/22/2011 Comment: about 20 years of chewing tobaco Alcohol Use: No Comment: occ Drug Use: No Sexual Activity: Not on file Other Topics Concern Not on file Social History Narrative Family History Problem Relation Age of Onset COPD Mother Asthma Mother Stroke Mother Vascular Dis Father carotid endarterectomy Arthritis/Rheumatoid Sister and Fibromyalgia Asthma Son Review of Systems Constitutional: Yes subjective fever "when the pain is bad" ENT: No blindness, no rhinitis, no sore throat Cardiovascular: No chest pain Respiratory: No shortness of breath, cough Gastrointestinal: Yes right flank pain, nausea "when the pain is bad", none currently No vomiting, diarrhea, black or bloody stools Genitourinary: Yes hematuria No dysuria Musculoskeletal: No acute physical injury. Skin: No laceration or rash Neuro and psych: No head injury, seizure, headache Endocrine/Heme/Lymph: No easy bruising or bleeding. Physical Exam BP 110/63 mmHg | Pulse 100 | Temp(Src) 97.8 F (36.6 C) (Temporal) | Resp 20 | Wt 90.2 k g (198 lb 13.7 oz) | SpO2 99% Vital Sign interpretation: Normal Pulse Oximetry interpretation: Normal General: Alert, in no apparent distress Eyes: Non-icteric ENT: Normal external exam Neck: Supple Cardiovascular: Warm and well perfused Respiratory: No respiratory distress Abdomen: Tenderness generalized right abdomen, soft, non distended Extremities: MONTES Back: Normal ROM, no CVA tenderness Skin: Color normal Warm and dry No rash Neuro: Alert, no AMS No gross motor/sensory deficits Medical Decision Making and Emergency Department Course ED Department Course Patient with known renal colic and 6mm stone. This is his 3rd ER visit in 3 days. His home regimen apparently is not sufficient. I will try increasing his percocet dose and see if we can get him more comfortable. Additionally he needs to be tied in with urology. Situation co mplicated by patient living in [place]. He is already on Flomax. Patient has had labs chec ked yesterday and the day before, so I will not recheck that today, but I will check a urine for signs of infection. Patient reports he will obtain a ride home if necessary but he wants to not have this pain. 7:12 AM Urine results reviewed. Negative for UTI. 7:[address] shows mild to moderate hydronephrosis and hydroureter with a 6 mm ureteral stone noted midway. BUN and creatinine were 23 and 1.31, white count was normal. 7:36 AM Rechecked patient. Patient reports his pain has improved and currently rates it as a 4/10. Patient states his pain has been tolerable like this before, however it suddenly wor sens. Will consult urology. 7:51 AM Discussed case with Dr. Dunne, urology, who recommends admission to hospitalists [facility] since this is the patients 3rd visit in 3 days and the patient resides in [place]. 7:53 AM Rechecked patient. Updated patient on plan for admission. Patient is agreeable to p mono. 8:50 AM Discussed case with Dr. Silva, hospitalist, who accepts patient for admission. Records Reviewed Old medical records. Nursing notes. No prior [facility] ED visits. Laboratory Evaluation Results Procedure Component Value Ref Range Date/Time Basic Metabolic Panel [[id number]] (Abnormal) Collected: 04/28/16 1016 Order Status: Completed Specimen Information: Blood Updated: 04/28/16 1056 SODIUM 141 135 - 145 mmol/L POTASSIUM 4.5 3.5 - 4.9 mmol/L CHLORIDE 109 99 - 109 mmol/L CO2 27 23 - 32 mmol/L ANION GAP AGAP 9 5 - 20 mmol/L GLUCOSE 92 65 - 99 mg/dL BUN 18 8 - 25 mg/dL CREATININE 1.5 (H) 0.70 - 1.30 mg/dL BUN/CREAT 12 CALCIUM 7.9 (L) 8.5 - 10.5 mg/dL EGFR 51 (L) >60 mL/min/1.73m2 Urinalysis (reflex to microscopic/reflex to culture) [[id number]] (Abnormal) Collected: 04/28/16 0658 Order Status: Completed Specimen Information: Urine, Clean Catch Updated: 04/28/16 07 11 COLOR UA YELLOW CLARITY CLEAR Specific [place], UA 1.012 1.002 - 1.030 LEUKOCYTE ESTERASE NEGATIVE NEGATIVE NITRITE NEGATIVE NEGATIVE UROBILINOGEN NORMAL <1.1 mg/dL PROTEIN NEGATIVE NEGATIVE mg/dL PH,URINE 5.0 5.0 - 8.0 BLOOD SMALL (A) NEGATIVE KETONES NEGATIVE NEGATIVE mg/dL BILIRUBIN NEGATIVE NEGATIVE GLUCOSE NEGATIVE NEGATIVE mg/dL WBC 0-2 0 - 5 /hpf RBC 3-5 0 - 2 /hpf BACTERIA NONE SEEN NONE SEEN EPITHELIAL NONE SEEN /lpf Mucus, UA 1+ I personally reviewed the lab results and they have been posted to the chart. Pertinent po sitive and negative findings have been addressed appropriately. Radiology and EKG Evaluation Imaging Results None ED Diagnoses Final diagnoses Ureterolithiasis Renal colic Intractable pain Disposition: ED Disposition Admit/Observation Bed request special needs: None Diagnosis?: ureterolithiasis, renal colic, intractable pain Follow-up Information None Discharge Medications: Current Discharge Medication List Procedures Additional Documentation Procedures Attending Note: Documentation assistance provided by Ashley Rivera (Scribe). Information recorded by the scribe has been reviewed and validated by me. Kamilla griffith with its contents. MD Lesli Paiz MD 04/28/16 1453 documented in this en counter Miscellaneous Notes Plan of Care - Conversion Transaction, Provider Unknown - 04/29/2016 11:21 AM PDT Plan of Care by Jeanne Wells RN at 04/29/161120 Author: Jeanne Wells RN Service: (none) Author Type: Registered Nurse Filed: 04/29/161120 Date of Service: 04/29/161120 Status: Signed Prosthodontist/Owner: Jeanne Wells RN (Registered Nurse) Daily care needs are met Progressing Patient's discharge needs are met Progressing Patient's pain/discomfort is manageable Progressing Demonstrates ability to cope with hospitalization/illness Progressing Collaborate with patient/family/caregiver to identify patient specific goals for this hospi talization Progressing Patient will be injury free during hospitalization Progressing lan o f Care - Conversion Transaction, Provider Unknown - 04/28/2016 8:49 PM PDTFormatting of thi s note might be different from the original. Plan of Care by Tracy Arevalo RN at 04/28/162048 Author: Tracy Arevalo RN Service: (none) Author Type: Registered Nurse Filed: 04/28/162048 Date of Service: 04/28/162048 Status: Signed Prosthodontist/Owner: Tracy Arevalo RN (Registered Nurse) Problem: Pain Goal: Patient s pain/discomfort is manageable Assess and monitor patient s pain using appropriate pain scale. Collaborate with interdis ciplinary team and initiate plan and interventions as ordered. Re-assess patient s pain le kellee approximately 1-2 hours after pain management intervention. Premedicate as needed. Outcome: Progressing Pt instructed to inform RN if pain increases and medication is needed; pt states he underst ands Problem: Safety Goal: Patient will be injury free during hospitalization Assess and monitor vitals signs, neurological status including level of consciousness and o rientation. Assess patient s risk for falls and implement fall prevention plan of care and interventions per hospital policy. Ensure arm band on, uncluttered walking paths in room, adequate room lighting, call light a nd overbed table within reach, bed in low position, wheels locked, side rails up per policy, and non-skid footwear provided. Outcome: Progressing Pt instructed in use of call light and to inform RN if assistance is needed; pt states he u nderstands Problem: Daily Care Goal: Daily care needs are met Assess and monitor ability to perform self care and identify potential discharge needs. Outcome: Progressing Pt independent Problem: Psychosocial Needs Goal: Demonstrates ability to cope with hospitalization/illness Assess and monitor patients ability to cope with his/her illness. Outcome: Progressing Pt denies any concerns p Not e - Jordan Dunne MD - 04/28/2016 4:11 PM PDTFormatting of this note might be different f rom the original. Op Note by Jordan Dunne MD at 04/28/16 1611 Author: Jordan Dunne MD Service: (none) Author Type: Physician Filed: 04/30/16 1327 Date of Service: 04/28/16 1611 Status: Signed Prosthodontist/Owner: Jordan Dunne MD (Physician) Related Notes: Original Note by Jordan Dunne MD (Physician) filed at 04/28/16 1615 [facility] Service: Urology Operative Note Pre-operative Diagnosis: 1. Right urolithiasis 2. Right hydronephrosis 3. Acute renal failure 4. Right flank pain Post-operative Diagnosis: Same Procedure(s): Cystoscopy, right ureteroscopy, laser lithotripsy, stone basket extraction and stent 6 X 26 Surgeon: JORDAN DUNNE MD Cooler Room Worker(s): n/a Anesthesia: General LMA Estimated Blood Loss: Less Than 10 ml (Minimal) Other: Not applicable Indications: See pre-operative history and physical. Findings: 1. Urethra: no evidence of tumors, stones, foreign bodies or diverticula 2. Bladder: single ureteral orifices noted bilaterally with no evidence of tumors, stones , foreign bodies or diverticula 3. Bilobar prostatic hypertrophy 4. Right mid ureteral lithiasis 5. Right distal ureteral edema Complications: none Description of Procedure: DESCRIPTION OF PROCEDURE The patient was identified in the holding area and taken to the operating room where he was laid in the supine position. After adequate anesthesia had been achieved, he was converted to the lithotomy position and dressed and draped in the usual sterile fashion. Next, fluoros copy was performed. It was difficult to identify the stone because of the associated hardwar e. As such, I elected to proceed with ureteroscopy. Using a 21-Iranian cystoscopic sheath wit h video camera, light, and water, panendoscopy was performed with the findings as noted abov e. A 0.035-inch Glidewire was then passed through the sideport of the cystoscopic sheath and negotiated past the right ureteral orifice under fluoroscopy and direct cystoscopic vision. This was designated as the safety wire. Next, using the [employer] semi-rigid ureteroscope with a second 0.035-inch Glidewire, a gentle right ureteroscopy was initiated. The stone was visua lized and photographs taken. Using a 400-micron holmium laser fiber, intracorporal laser lit hotripsy was performed. After adequate fragmentation had been obtained, a 0-tipped stone bas ket was passed and stone the larger stone fragments extracted and sent for analysis. In view of the distal ureteral edema, I elected to place a stent. The ureteroscope was exchanged fo r the cystoscope and a 6 x 26 stent placed in the usual retrograde fashion under fluoroscopy and direct cystoscopic vision. The wire was withdrawn, and the stent was noted to be in goo d position. The bladder was emptied and the procedure was terminated. The patient was recove red and taken to the recovery room in stable condition. The patient tolerated the procedure well and was stable postoperatively. Condition: Stable JORDAN DUNNE MD 04/28/2016 lan of C are - Conversion Transaction, Provider Unknown - 04/28/2016 11:37 AM PDTFormatting of this n ote might be different from the original. Plan of Care by Jeanne Wells RN at 04/28/16 8313 Author: Jeanne Wells RN Service: (none) Author Type: Registered Nurse Filed: 04/28/167 Date of Service: 04/28/161136 Status: Signed Prosthodontist/Owner: Jeanne Wells, RN (Registered Nurse) Daily care needs are met Progressing Patient's discharge needs are met Progressing Patient's pain/discomfort is manageable Progressing Demonstrates ability to cope with hospitalization/illness Progressing Collaborate with patient/family/caregiver to identify patient specific goals for this hospi talization Progressing Patient will be injury free during hospitalization Progressing docume nted in this encounter Plan of Treatment Not on filedocumented as of this encounter Procedures + +--------+ + + + | Procedure Name | Priori | Date/Time | Associated Diagnosis | Comments | | | ty | | | | + +--------+ + + + | EXTERNAL LAB: CBC | Routin | 04/29/2016 | | Results for this | | | e | 5:31 AM | | procedure are in the | | | | PDT | | results section. | + +--------+ + + + | PHOSPHORUS | Routin | 04/29/2016 | | Results for this | | | e | 5:31 AM | | procedure are in the | | | | PDT | | results section. | + +--------+ + + + | MAGNESIUM | Routin | 04/29/2016 | | Results for this | | | e | 5:31 AM | | procedure are in the | | | | PDT | | results section. | + +--------+ + + + | BASIC METABOLIC | Routin | 04/29/2016 | | Results for this | | PANEL | e | 5:31 AM | | procedure are in the | | | | PDT | | results section. | + +--------+ + + + | TISSUE REQUEST FOR | Routin | 04/29/2016 | | Results for this | | PATHOLOGY (NON-ORD) | e | 12:00 AM | | procedure are in the | | | | PDT | | results section. | + +--------+ + + + | CALCULI ANALYSIS | Routin | 04/28/2016 | | Results for this | | | e | 5:18 PM | | procedure are in the | | | | PDT | | results section. | + +--------+ + + + | FL C ARM > 1 HOUR | Routin | 04/28/2016 | | Results for this | | | e | 4:00 PM | | procedure are in the | | | | PDT | | results section. | + +--------+ + + + | BASIC METABOLIC | Routin | 04/28/2016 | | Results for this | | PANEL | e | 11:14 AM | | procedure are in the | | | | PDT | | results section. | + +--------+ + + + | BASIC METABOLIC | Routin | 04/28/2016 | | Results for this | | PANEL | e | 10:16 AM | | procedure are in the | | | | PDT | | results section. | + +--------+ + + + | URINALYSIS, REFLEX | Routin | 04/28/2016 | | Results for this | | MICROSCOPIC AND/OR | e | 6:58 AM | | procedure are in the | | CULTURE | | PDT | | results section. | + +--------+ + + + | CT ABDOMEN PELVIS WO | Routin | 04/27/2016 | | Results for this | | CONTRAST | e | 7:36 AM | | procedure are in the | | | | PDT | | results section. | + +--------+ + + + documented in this encounter Results External Lab: [facility] (04/29/2016 5:31 AM PDT) + + + + + + | Component | Value | Ref Range | Performed | Pathologist | | | | | At | Signature | + + + + + + | WBC | 7.74Comment: Testing | 3.80 - 11.00 | EXTERNAL | | | | performed at [facility], [address] | K/uL | LAB | | | | [address], | | | | | | [place] [address] | | | | + + + + + + | Non- | 4.77Comment: Testing | 4.20 - 5.70 | EXTERNAL | | | Red Blood | performed at [facility], [address] | M/uL | LAB | | | Cells | [address], | | | | | Counted | [place] [address] | | | | + + + + + + | Hemoglobin | 14.2Comment: Testing | 13.2 - 17.0 | EXTERNAL | | | | performed at [facility], [address] | g/dL | LAB | | | | [address], | | | | | | [place] [address] | | | | + + + + + + | Hematocrit, | 42.7Comment: Testing | 39.0 - 50.0 % | EXTERNAL | | | POC | performed at [facility], [address] | | LAB | | | | [address], | | | | | | [place] [address] | | | | + + + + + + | MCV | 89.4Comment: Testing | 80.0 - 100.0 fl | EXTERNAL | | | | performed at [facility], [address] | | LAB | | | | [address], | | | | | | [place] [address] | | | | + + + + + + | MCH | 29.8Comment: Testing | 27.0 - 34.0 pg | EXTERNAL | | | | performed at [facility], [address] | | LAB | | | | [address], | | | | | | [place] [address] | | | | + + + + + + | MCHC | 33.3Comment: Testing | 32.0 - 35.5 | EXTERNAL | | | | performed at [facility], [address] | g/dL | LAB | | | | [address], | | | | | | [place] [address] | | | | + + + + + + | RDW-CV | 39.4Comment: Testing | 37 - 53 fl | EXTERNAL | | | | performed at [facility], [address] | | LAB | | | | [address], | | | | | | [place] [address] | | | | + + + + + + | Platelet | 147 (L)Comment: Testing | 150 - 400 K/uL | EXTERNAL | | | Count | performed at [facility], [address] | | LAB | | | Plasma | [address], | | | | | | [place] [address] | | | | + + + + + + | MPV | 7.9Comment: Testing | fl | EXTERNAL | | | | performed at [facility], [address] | | LAB | | | | [address], | | | | | | [place] [address] | | | | + + + + + + | Differentia | MANUALComment: Testing | | EXTERNAL | | | l Type | performed at [facility], [address] | | LAB | | | | [address], | | | | | | [place] [address] | | | | + + + + + + | Segmented | 96Comment: Testing | % | EXTERNAL | | | Neutrophils | performed at [facility], [address] | | LAB | | | Manual | [address], | | | | | | [place] [address] | | | | + + + + + + | % Bands | 1Comment: Testing | % | EXTERNAL | | | | performed at [facility], [address] | | LAB | | | | [address], | | | | | | [place] [address] | | | | + + + + + + | Lymphocytes | 2Comment: Testing | % | EXTERNAL | | | Manual | performed at [facility], [address] | | LAB | | | | [address], | | | | | | [place] [address] | | | | + + + + + + | Monocytes | 1Comment: Testing | % | EXTERNAL | | | Manual | performed at [facility], [address] | | LAB | | | | [address], | | | | | | [place] [address] | | | | + + + + + + | Absolute | 7.43 (H)Comment: Testing | 1.90 - 7.40 | EXTERNAL | | | Neutrophils | performed at [facility], [address] | K/uL | LAB | | | | [address], | | | | | | [place] [address] | | | | + + + + + + | Bands | 0.08Comment: Testing | 0.00 - 0.20 | EXTERNAL | | | Manual | performed at [facility], [address] | K/uL | LAB | | | | [address], | | | | | | [place] [address] | | | | + + + + + + | Absolute | 0.15 (L)Comment: Testing | 1.00 - 3.90 | EXTERNAL | | | Lymphocytes | performed at [facility], [address] | [address] | LAB | | | | [address], | | | | | | [place] [address] | | | | + + + + + + | Absolute | 0.08Comment: Testing | 0.00 - 0.80 | EXTERNAL | | | Monocytes | performed at [facility], [address] | K/uL | LAB | | | | [address], | | | | | | [place] [address] | | | | + + + + + + | RBC | NORMAL RBC MORPHComment: | | EXTERNAL | | | Morphology | NORMAL PLT MORPHTesting | | LAB | | | | performed at [facility], [address] | | | | | | [address], | | | | | | [place] [address] | | | | + + + + + + + + | Specimen | + + | Blood specimen | | (specimen) | + + + +---------+ + + | Performing | Address | City/State/Zipcode | Phone Number | | Organization | | | | + +---------+ + + | EXTERNAL LAB | | | | + +---------+ + + Phosphorus (04/29/2016 5:31 AM PDT) + + + + + + | Component | Value | Ref Range | Performed | Pathologist | | | | | At | Signature | + + + + + + | PHOSPHORUS | 3.1Comment: Testing | 2.3 - 4.8 mg/dL | EXTERNAL | | | | performed at [facility], [address] | | LAB | | | | [address], | | | | | | [place] [address] | | | | + + + + + + + + | Specimen | + + | Blood specimen | | (specimen) | + + + +---------+ + + | Performing | Address | City/State/Zipcode | Phone Number | | Organization | | | | + +---------+ + + | EXTERNAL LAB | | | | + +---------+ + + Magnesium (04/29/2016 5:31 AM PDT) + + + + + + | Component | Value | Ref Range | Performed | Pathologist | | | | | At | Signature | + + + + + + | Magnesium | 2.1Comment: Testing | 1.7 - 2.4 mg/dL | EXTERNAL | | | | performed at [facility], [address] | | LAB | | | | [address], | | | | | | [place] [address] | | | | + + + + + + + + | Specimen | + + | Blood specimen | | (specimen) | + + + +---------+ + + | Performing | Address | City/State/Zipcode | Phone Number | | Organization | | | | + +---------+ + + | EXTERNAL LAB | | | | + +---------+ + + Basic Metabolic Panel (04/29/2016 5:31 AM PDT) + + + + + + | Component | Value | Ref Range | Performed | Pathologist | | | | | At | Signature | + + + + + + | Na | 142Comment: NOTE NEW | 135 - 145 | EXTERNAL | | | | REFERENCE RANGETesting | mmol/L | LAB | | | | performed at [facility], [address] | | | | | | [address], | | | | | | [place] [address] | | | | + + + + + + | K | 4.5Comment: Testing | 3.5 - 4.9 | EXTERNAL | | | | performed at [facility], [address] | mmol/L | LAB | | | | [address], | | | | | | [place] [address] | | | | + + + + + + | Cl | 110 (H)Comment: Testing | 99 - 109 mmol/L | EXTERNAL | | | | performed at [facility], [address] | | LAB | | | | [address], | | | | | | [place] [address] | | | | + + + + + + | CO2 | 26Comment: Testing | 23 - 32 mmol/L | EXTERNAL | | | | performed at [facility], [address] | | LAB | | | | [address], | | | | | | [place] [address] | | | | + + + + + + | Anion Gap | 11Comment: Testing | 5 - 20 mmol/L | EXTERNAL | | | | performed at [facility], [address] | | LAB | | | | [address], | | | | | | [place] [address] | | | | + + + + + + | Glucose, | 139 (H)Comment: Testing | 65 - 99 mg/dL | EXTERNAL | | | Fasting | performed at [facility], [address] | | LAB | | | | [address], | | | | | | [place] [address] | | | | + + + + + + | BUN | 14Comment: Testing | 8 - 25 mg/dL | EXTERNAL | | | | performed at [facility], [address] | | LAB | | | | [address], | | | | | | [place] [address] | | | | + + + + + + | Creatinine | 1.0Comment: Testing | 0.70 - 1.30 | EXTERNAL | | | | performed at [facility], [address] | mg/dL | LAB | | | | [address], | | | | | | [place] [address] | | | | + + + + + + | BUN/Creatin | 14Comment: Testing | | EXTERNAL | | | ine Ratio | performed at [facility], [address] | | LAB | | | | [address], | | | | | | [place] [address] | | | | + + + + + + | Calcium | 8.2 (L)Comment: Testing | 8.5 - 10.5 | EXTERNAL | | | | performed at [facility], [address] | mg/dL | LAB | | | | [address], | | | | | | [place] [address] | | | | + + + + + + | Estimated | >60Comment: GFR <60: | mL/min/1.73m2 | EXTERNAL | | | GFR | CHRONIC KIDNEY DISEASE, | | LAB | | | | IF FOUND OVER A 3 MONTH | | | | | | PERIOD.GFR <15: KIDNEY | | | | | | FAILURE.FOR | | | | | | AMERICANS, MULTIPLY THE | | | | | | CALCULATED GFR BY | | | | | | 1.210.Testing performed | | | | | | at [facility], [address] | | | | | | [address], | | | | | | [place] [address] | | | | + + + + + + + + | Specimen | + + | Blood specimen | | (specimen) | + + + +---------+ + + | Performing | Address | City/State/Zipcode | Phone Number | | Organization | | | | + +---------+ + + | EXTERNAL LAB | | | | + +---------+ + + Tissue Request For Pathology (04/29/2016 12:00 AM PDT) + + | Specimen | + + | | + + + + + | Narrative | Performed At | + + + | SPECIMEN(S): A Rt. URETERAL STONE SPECIMEN SOURCE: A. Rt. | EXTERNAL LAB | | URETERAL STONE CLINICAL HISTORY: 04/28/2016. Right flank pain. | | | FINAL PATHOLOGIC DIAGNOSIS: CALCULI IDENTIFIED. THE SPECIMEN WILL BE | | | SENT TO AN OUTSIDE FACILITY FOR FURTHER CHEMICAL ANALYSIS. GROSS | | | DESCRIPTION: One specimen is received in one container, labeled with | | | the patient's name: A. Received fresh designated "right ureteral | | | stone for analysis", consists of 2 red-brown firm roughened calculi | | | that each measure 0.3 cm in greatest dimension. Specimen is submitted | | | for gross examination only. FM The gross description section of | | | this report has been prepared using a voice recognition system. The | | | report was reviewed for accuracy, however, sound-alike word errors, | | | addition and/or deletions may occur. If there is any question about | | | this report please contact the originating pathologist. PERFORMING | | | LABORATORY: Professional interpretation and technical preparation was | | | performed by [facility], [facility], [address] | | | [place] [address] ([employer] Hand: Carson | | | Amy Dillard; [place]#: [id number]). Diagnostician: Bryan Jones MD | | | Pathologist Electronically Signed 04/29/2016 | | + + + + +---------+ + + | Performing | Address | City/State/Zipcode | Phone Number | | Organization | | | | + +---------+ + + | EXTERNAL LAB | | | | + +---------+ + + Calculi Analysis (04/28/2016 5:18 PM PDT) + + | Specimen | + + | | + + + + + | Narrative | Performed At | + + + | NIDUS NOT OBSERVED | EXTERNAL LAB | | Testing performed at [facility], [address] [place] [address] | | | [place] [address] COMPONENT 1 SEE | | | BELOW CALCIUM OXALATE DIHYDRATE (WEDDELLITE) 20% CALCIUM OXALATE | | | MONOHYDRATE (WHEWELLITE) 80% Testing performed at [facility] | | | [facility], [address] [place] [id number] COMPONENT 2 | | | NOT REPORTED Testing performed at | | | [facility], [address] [place] [address], [facility] [address] | | | STONE WEIGHT 0.0190 Testing | | | performed at [facility] [employer], [address] [place] [address] | | | [place] [address] | | + + + + +---------+ + + | Performing | Address | City/State/Zipcode | Phone Number | | Organization | | | | + +---------+ + + | EXTERNAL LAB | | | | + +---------+ + + FL C-Arm > 1 Hour (04/28/2016 4:00 PM PDT) + + | Specimen | + + | | + + + + + | Narrative | Performed At | + + + | This is a non-reportable procedure without a radiologist report and | | | is used for image storage only. Please review the OR procedure | | | report for details on the procedure. | | + + + + + | Procedure Note | + + | Mika Oconnor - 06/15/2019 12:38 PM PDT This is a non-reportable procedure | | without a radiologist report and isused for image storage only.Please review the OR | | procedure report for details on the procedure. | + + Basic Metabolic Panel (04/28/2016 11:14 AM PDT) + + + + + + | Component | Value | Ref Range | Performed | Pathologist | | | | | At | Signature | + + + + + + | Na | 144Comment: NOTE NEW | 135 - 145 | EXTERNAL | | | | REFERENCE RANGETesting | mmol/L | LAB | | | | performed at [facility], [address] | | | | | | [address], | | | | | | [place] [address] | | | | + + + + + + | K | 4.3Comment: Testing | 3.5 - 4.9 | EXTERNAL | | | | performed at [facility], [address] | mmol/L | LAB | | | | [address], | | | | | | [place] [address] | | | | + + + + + + | Cl | 109Comment: Testing | 99 - 109 mmol/L | EXTERNAL | | | | performed at [facility], [address] | | LAB | | | | [address], | | | | | | [place] [address] | | | | + + + + + + | CO2 | 30Comment: Testing | 23 - 32 mmol/L | EXTERNAL | | | | performed at [facility], [address] | | LAB | | | | [address], | | | | | | [place] [address] | | | | + + + + + + | Anion Gap | 9Comment: Testing | 5 - 20 mmol/L | EXTERNAL | | | | performed at [facility], [address] | | LAB | | | | [address], | | | | | | [place] [address] | | | | + + + + + + | Glucose, | 104 (H)Comment: Testing | 65 - 99 mg/dL | EXTERNAL | | | Fasting | performed at [facility], [address] | | LAB | | | | [address], | | | | | | [place] [address] | | | | + + + + + + | BUN | 17Comment: Testing | 8 - 25 mg/dL | EXTERNAL | | | | performed at [facility], [address] | | LAB | | | | [address], | | | | | | [place] [address] | | | | + + + + + + | Creatinine | 1.5 (H)Comment: Testing | 0.70 - 1.30 | EXTERNAL | | | | performed at [facility], [address] | mg/dL | LAB | | | | [address], | | | | | | [place] [address] | | | | + + + + + + | BUN/Creatin | 11Comment: Testing | | EXTERNAL | | | ine Ratio | performed at [facility], [address] | | LAB | | | | [address], | | | | | | [place] [address] | | | | + + + + + + | Calcium | 8.2 (L)Comment: Testing | 8.5 - 10.5 | EXTERNAL | | | | performed at [facility], [address] | mg/dL | LAB | | | | [address], | | | | | | [place] [address] | | | | + + + + + + | Estimated | 51 (L)Comment: GFR <60: | mL/min/1.73m2 | EXTERNAL | | | GFR | CHRONIC KIDNEY DISEASE, | | LAB | | | | IF FOUND OVER A 3 MONTH | | | | | | PERIOD.GFR <15: KIDNEY | | | | | | FAILURE.FOR | | | | | | AMERICANS, MULTIPLY THE | | | | | | CALCULATED GFR BY | | | | | | 1.210.Testing performed | | | | | | at [facility], [address] | | | | | | [address], | | | | | | [place] [address] | | | | + + + + + + + + | Specimen | + + | Blood specimen | | (specimen) | + + + +---------+ + + | Performing | Address | City/State/Zipcode | Phone Number | | Organization | | | | + +---------+ + + | EXTERNAL LAB | | | | + +---------+ + + Basic Metabolic Panel (04/28/2016 10:16 AM PDT) + + + + + + | Component | Value | Ref Range | Performed | Pathologist | | | | | At | Signature | + + + + + + | Na | 141Comment: NOTE NEW | 135 - 145 | EXTERNAL | | | | REFERENCE RANGETesting | mmol/L | LAB | | | | performed at [facility];[address] | | | | | | [address];[place] | | | | | | [address] | | | | + + + + + + | K | 4.5Comment: Testing | 3.5 - 4.9 | EXTERNAL | | | | performed at [facility];[address] | mmol/L | LAB | | | | [address];[place] | | | | | | [address] | | | | + + + + + + | Cl | 109Comment: Testing | 99 - 109 mmol/L | EXTERNAL | | | | performed at [facility];[address] | | LAB | | | | [address];[place] | | | | | | [address] | | | | + + + + + + | CO2 | 27Comment: Testing | 23 - 32 mmol/L | EXTERNAL | | | | performed at [facility];[address] | | LAB | | | | [address];[place] | | | | | | [address] | | | | + + + + + + | Anion Gap | 9Comment: Testing | 5 - 20 mmol/L | EXTERNAL | | | | performed at [facility];[address] | | LAB | | | | [address];[place] | | | | | | [address] | | | | + + + + + + | Glucose, | 92Comment: Testing | 65 - 99 mg/dL | EXTERNAL | | | Fasting | performed at [facility];[address] | | LAB | | | | [address];[place] | | | | | | [address] | | | | + + + + + + | BUN | 18Comment: Testing | 8 - 25 mg/dL | EXTERNAL | | | | performed at [facility];[address] | | LAB | | | | [address];[place] | | | | | | [address] | | | | + + + + + + | Creatinine | 1.5 (H)Comment: Testing | 0.70 - 1.30 | EXTERNAL | | | | performed at [facility];[address] | mg/dL | LAB | | | | [address];[place] | | | | | | [address] | | | | + + + + + + | BUN/Creatin | 12Comment: Testing | | EXTERNAL | | | ine Ratio | performed at [facility];[address] | | LAB | | | | [address];[place] | | | | | | [address] | | | | + + + + + + | Calcium | 7.9 (L)Comment: Testing | 8.5 - 10.5 | EXTERNAL | | | | performed at [facility];[address] | mg/dL | LAB | | | | [address];[place], [place] | | | | | | [address] | | | | + + + + + + | Estimated | 51 (L)Comment: GFR <60: | mL/min/1.73m2 | EXTERNAL | | | GFR | CHRONIC KIDNEY DISEASE, | | LAB | | | | IF FOUND OVER A 3 MONTH | | | | | | PERIOD.GFR <15: KIDNEY | | | | | | FAILURE.FOR | | | | | | AMERICANS, MULTIPLY THE | | | | | | CALCULATED GFR BY | | | | | | 1.210.Testing performed | | | | | | at [facility];[address];[place] [address] | | | | + + + + + + + + | Specimen | + + | Blood specimen | | (specimen) | + + + +---------+ + + | Performing | Address | City/State/Zipcode | Phone Number | | Organization | | | | + +---------+ + + | EXTERNAL LAB | | | | + +---------+ + + Urinalysis, Reflex Microscopic and/or Culture (04/28/2016 6:58 AM PDT) + + + + + + | Component | Value | Ref Range | Performed | Pathologist | | | | | At | Signature | + + + + + + | Color | YELLOWComment: Testing | | EXTERNAL | | | | performed at [facility] | | LAB | | | | [address];[place], [place] | | | | | | [address] | | | | + + + + + + | Clarity, | CLEARComment: Testing | | EXTERNAL | | | Urine | performed at [facility];[address] | | LAB | | | | [address];[place] | | | | | | [address] | | | | + + + + + + | Specific | 1.012Comment: Testing | 1.002 - 1.030 | EXTERNAL | | | [place], | performed at [facility];[address] | | LAB | | | Urine | [address];[place] | | | | | | [address] | | | | + + + + + + | Leukocyte | NEGATIVEComment: Testing | | EXTERNAL | | | Esterase, | performed at [facility];[address] | | LAB | | | Urine | [address];[place] | | | | | | [address] | | | | + + + + + + | Nitrite, | NEGATIVEComment: Testing | | EXTERNAL | | | Urine | performed at [facility];[address] | | LAB | | | | [address];[place] | | | | | | [address] | | | | + + + + + + | Urobilinoge | NORMALComment: Testing | mg/dL | EXTERNAL | | | n, Urine | performed at [facility];[address] | | LAB | | | | [address];[place] | | | | | | [address] | | | | + + + + + + | Protein, | NEGATIVEComment: Testing | mg/dL | EXTERNAL | | | Urine | performed at [facility];[address] | | LAB | | | | [address];[place] | | | | | | [address] | | | | + + + + + + | pH, Urine | 5.0Comment: Testing | 5.0 - 8.0 | EXTERNAL | | | | performed at [facility];[address] | | LAB | | | | [address];[place] | | | | | | [address] | | | | + + + + + + | Blood, | SMALL (A)Comment: | | EXTERNAL | | | Urine | Testing performed at | | LAB | | | | [facility];[address];[place] [address] | | | | + + + + + + | Ketones | NEGATIVEComment: Testing | mg/dL | EXTERNAL | | | | performed at [facility];[address] | | LAB | | | | [address];[place] | | | | | | [address] | | | | + + + + + + | Bilirubin, | NEGATIVEComment: Testing | | EXTERNAL | | | Urine | performed at [facility];[address] | | LAB | | | | [address];[place] | | | | | | [address] | | | | + + + + + + | Glucose, | NEGATIVEComment: Testing | mg/dL | EXTERNAL | | | Urine | performed at [facility];[address] | | LAB | | | | [address];[place] | | | | | | [address] | | | | + + + + + + | WBC, UA | 0-2Comment: Testing | 0 - 5 /hpf | EXTERNAL | | | | performed at [facility];[address] | | LAB | | | | [address];[place] | | | | | | [address] | | | | + + + + + + | RBC, UA | 3-5Comment: Testing | 0 - 2 /hpf | EXTERNAL | | | | performed at [facility];[address] | | LAB | | | | [address];[place] | | | | | | [address] | | | | + + + + + + | Bacteria, | NONE SEENComment: | | EXTERNAL | | | UA | Testing performed at | | LAB | | | | [facility];[address];[place] [address] | | | | + + + + + + | Epithelial | NONE SEENComment: | /lpf | EXTERNAL | | | Cells | Testing performed at | | LAB | | | | [facility];[address];[place] [address] | | | | + + + + + + | Mucus, | 1+Comment: Testing | | EXTERNAL | | | Urine | performed at [facility];[address] | | LAB | | | [address];[place] | | | | | | [address] | | | | + + + + + + + + | Specimen | + + | | + + + +---------+ + + | Performing | Address | City/State/Zipcode | Phone Number | | Organization | | | | + +---------+ + + | EXTERNAL LAB | | | | + +---------+ + + CT Abdomen Pelvis wo Contrast (04/27/2016 7:36 AM PDT) + + | Specimen | + + | | + + + + + | Narrative | Performed At | + + + | This is a non-reportable procedure without a radiologist report and | | | is used for image storage only | | + + + + + | Procedure Note | + + | Mika Oconnor - 06/15/2019 12:38 PM PDT This is a non-reportable procedure | | without a radiologist report and isused for image storage only | + + documented in this encounter Visit Diagnoses + + | Diagnosis | + + | Ureterolithiasis Calculus of ureter | + + | Renal colic | + + | Intractable pain Other chronic pain | + + documented in this encounter
--- OUTSIDE RECORDS SUMMARY | ~2020-06-28 | XMS | Encounter Summary ---
Demographics + + + | Address | [address] | | | [place] [address] | + + + | Home Phone [...] [place], | | | | | [place] [address] | | + + + + + | Wilian Krishna) | ECON | [address] | | | [place] | | [place], [place] | | | | | [address] | | + + + + + | Cathy Medina | ECON | [address] | | | | | [place], [place] | | | | | [address] | | + + + + + | Zachariah Medina | ECON | Unknown | + | + + + + + Care Team Providers + +------+ + | Care Deliverer Outside Name | Role | Phone | + +------+ + | Chito Tarango MD | PCP | | + +------+ + Reason for Visit + + + | Reason | Comments | + + + | Back Pain | | + + + Evaluate & Treat (Routine) +--------+--------+ + + + + | Status | Reason | Specialty | Diagnoses / | Referred By | Referred To | | | | | Procedures | Contact | Contact | +--------+--------+ + + + + | Closed | | Neurosurgery | Diagnoses | Oleg | Millie | | | | | Luis Alfredo | Luciano | Patrick Coker MD | | | | | low back | MD Brayan | [address] | | | | | pain | [address] | | | | | Procedures | [address] | [place], | | | | | AR OFFICE | [place], | [place] [address] | | | | | CONSULTATION | [place] | Phone: | | | | | NEW/ESTAB | [address] | [phone] | | | | | PATIENT 60 | Phone: | [phone] Fax: | | | | | MIN | [phone] | [phone] | | | | | | Fax: | | | | | | | [phone] | | +--------+--------+ + + + + Encounter Details +--------+---------+ + + + | Date | Type | Department | Care Team | Description | +--------+---------+ + + + | 03/20/ | Office | [facility] | Patrick Pinto | Scoliosis (Primary | | 2012 | Visit | NEUROSURGERY [address] | MD John Paul [address] | Dx); [address] | | | | [address] | [address] [place], [place] | stenosis of | | | | [place], [place] | [address] | lumbosacral region; | | | | [address] | [phone] | DDD (degenerative | | | | [phone] | | disc disease), | | | | | | lumbar; | | | | | | Spondylolisthesis of | | | | | | lumbosacral region; | | | | | | Spinal instability, | | | | | | lumbar; Facet | | | | | | arthropathy, | | | | | | lumbosacral; Annular | | | | | | tear of lumbar disc | +--------+---------+ + + + Social History [...] + + + | Blood Pressure | 131/81 | 03/20/2013 8:23 AM | | | | | PDT | | + + + + + | Pulse | 97 | 03/20/2013 8:23 AM | | | | | PDT | | + + + + + | Temperature | - | - | | + + + + + | Respiratory Rate | 18 | 03/20/2013 8:23 AM | | | | | PDT | | + + + + + | Oxygen Saturation | - | - | | + + + + + | Inhaled Oxygen | - | - | | | Concentration | | | | + + + + + | Weight | 98.9 kg (218 lb) | 03/20/2013 8:23 AM | | | | | PDT | | + + + + + | Height | 182.9 cm (6') | 03/20/2013 8:23 AM | | | | | PDT | | + + + + + | Body Mass Index | 29.57 | 03/20/2013 8:23 AM | | | | | PDT | | + + + + + documented in this encounter Patient Instructions Patient Instructions Patrick Pinto MD - 03/20/2013 2:28 PM PDTFormatting of this n ote might be different from the original. Causes of Lumbar (Low Back) Pain Low back pain can be caused by problems with any part of the lumbar spine. A disk can herni ate (push out) and press on a nerve. Vertebrae can rub against each other or slip out of breanne ce. This can irritate facet joints and nerves. It can also lead to stenosis, a narrowing of the spinal canal or foramen. Pressure from a Disk Constant wear and tear on a disk can cause it to weaken and push outward. Part of the disk may then press on nearby nerves. There are two common types of herniated disks: Contained means the soft nucleus is protruding outward. Contained herniated disk Extruded means the firm annulus has torn, letting the soft center squeeze through. Extruded herniated disk Pressure from Bone An Unstable Spine With age, a disk may thin and wear out. Vertebrae above and below the disk may begin to t ouch. This can put pressure on nerves. It can also cause bone spurs (growths) to form where the bones rub together. Stenosis Stenosis results when bone spurs narrow the foramen or spinal canal. This also puts pressur e on nerves. Slipping vertebrae can irritate nerves and joints. They can also worsen stenosi s. Spondylolisthesis In some cases, vertebrae become unstable and slip forward. This is called spondylolisthes is. [id number] [facility], [address] [place] [address], [place] [address]. All rights reserve d. This information is not intended as a substitute for professional medical care. Always fo llow your healthcare professional's instructions. documented in this encounter Progress Notes Ptarick Pinto MD - 03/20/2013 8:51 AM PDTFormatting of this note might be differen t from the original. MD José Miguel Thrasher [facility] [address], [address] [place] [address] FAX: NEUROSURGERY HISTORY AND PHYSICAL EXAMINATION CHIEF COMPLAINT: Chief Complaint Patient presents with Back Pain HISTORY OF PRESENT ILLNESS: We had the great pleasure of seeing in my clinic Mr. Antonio Medina. Mr. Medina is a very pleasant 55 y.o. male with the complaint of low back and leg symptoms that began several years ago. He states that when he was in his 20's he was in a skiing accident and has experienced low back pain since then. Over the years he felt it has slowly gotten worse, especially since January 2013 when his pain started radiating down his l egs. He describes his symptoms as a constant achy low back pain which never goes away with pain radiating down the posterior aspect of his left thigh and lateral aspect of his lower l eg, ending at about his lateral malleolus. Pain radiates down the posterior aspect of his r ight thigh, ending at about the back of his knee. His symptoms are much worse on the left. He has tried several other modalities to help alleviate his back pain over the years with jayme suarez little success. He is also only able to walk approximately 20 yards pain free, after th at the pain in his legs increases in severity. His symptoms worsen with walking, sitting and standing for too long, and certain positions especially extension. His symptoms improve with pain medication and a certain position in his recliner. He describes no numbness. He describes left sided weakness. Constipation symptoms, with a stable bladder. Treatments for these symptoms he has tried include physical therapy, radiofrequency ablatio n (x2), exercises, and epidural steroid injections. PAST MEDICAL HISTORY: Past Medical History Diagnosis Date GERD (gastroesophageal reflux disease) Asthma PAST SURGICAL HISTORY: Past Surgical History Procedure Date Total knee arthroplasty 2009 left Finger surgery 2009 accident with saw Tibia fracture surgery 2007 left Knee arthroscopy bilateral, several times CURRENT MEDICATIONS: Current Outpatient Prescriptions Medication Sig Dispense Refill Ascorbic Acid (VITAMIN C) 1000 MG tablet Take 1,000 mg by mouth Daily. Multiple Vitamins-Minerals (MULTIVITAMIN & MINERAL PO) Take 1 capsule by mouth. oxyCODONE-acetaminophen (PERCOCET) 5-325 mg per tablet Take 1 tablet by mouth every 4 h ours as needed. methocarbamol (ROBAXIN) 750 mg tablet Take 750 mg by mouth 4 times daily. MELOXICAM Take 15 mg by mouth Daily. DULoxetine (CYMBALTA) 60 MG capsule Take 60 mg by mouth Daily. ALLERGIES: Allergies Allergen Reactions Morphine Hives SOCIAL HISTORY: The patient reports that he has never smoked. He quit smokeless tobacco use about 8 months ago. He reports that he drinks alcohol. He reports that he does not use illicit drugs. FAMILY HISTORY: Family History Problem Relation Age of Onset Stroke Mother Cancer Mother Arthritis Mother Hypertension Father Arthritis Father Arthritis Sister REVIEW OF SYSTEMS: GENERAL: No fever, no anemia, no fatigue, no recent profound weight changes. EYES: No eye problems, + use of corrective lenses, no eye injury, no double vision, no bli ndness. EARS, NOSE, AND THROAT: No changes in taste or smell, no hearing difficulty, no ringing in the ears, no ear drainage, no dizziness, no voice changes, no difficulty swallowing, no sig nificant snoring, no sleep apnea, no sinus problems, no major dental work. NEUROLOGIC: Please see the review of systems discussed above in the history of present ill ness. MUSCULOSKELETAL: denies neck pain, complains of back pain. PSYCHIATRIC: No depression, no sleep disorders, no anxiety, no bipolar disorder, no psycho tic episodes. CARDIOVASCULAR: No heart attacks, no heart murmur, no heart fluttering, no chest pain, no ankle swelling. PULMONARY: No shortness of breath, no cough, no tuberculosis, no bloody cough, no asthma, no emphysema/COPD. GASTROINTESTINAL: No bowel disease, no nausea or vomiting, no rectal bleeding, no constipa tion, no stool incontinence, no liver disease, no gallbladder disease, no abdominal pain, no ulcers. GENITOURINARY: No urinary frequency, no painful or difficult urination, no Incontinence. ENDOCRINE: No diabetes, no thyroid disease, no osteopenia or osteoporosis, no breast drain age. SKIN: No breast lumps, no skin changes, no rashes, no itches. HEMATOLOGIC/LYMPHATIC: No enlarged lymph nodes, no easy or unusual bleeding, no personal h istory of cancer. RHEUMATOLOGIC: No joint arthritis, no rheumatoid, no inflammatory arthritis. PHYSICAL EXAMINATION: Blood pressure 131/81, pulse 97, resp. rate 18, height 1.829 m (6'), weight 98.884 kg (218 lb). Body mass index is 29.57 kg/(m^2). GENERAL: Antonio Medina is a pleasant, well developed, well nourished male in no acute d istress with unlabored respirations who appears Older than his stated age. The patient does not appear uncomfortable throughout the exam today. HEENT: HEAD/FACE: EYES: EARS: NASOPHARNYX: OROPHARNYX: Normocephalic and atraumatic. There are no areas of recent trauma. Normal sclerae without icterus. Tympanic membranes are clear. No drainage or tenderness. Benign. Clear without drainage. Benign. Clear without erythema. NECK (ANTERIOR): Supple with no palpable masses. There are not audible bruits. CHEST: Clear to ausculation without crackles or wheeze. HEART: Regular rate and rhythm without murmurs. ABDOMEN: Soft, non-tender, non-distended, and without palpable masses. The patient is not obese. SPINE: The cervical spine exam shows there is no tenderness over the region. Range of mot ion is limited. Rotation and extension does cause symptoms to radiate into the extremities on both sides. No tenderness in the midline of the thoracic or lumbar spine. There is no major palpable d eformity of the spine. EXTREMITIES: No cyanosis, clubbing, or edema. Distal pulses are palpable. NEUROLOGICAL EXAM: MENTAL STATUS: The patient is awake, alert, and oriented x3. Speech is fluent, comprehension is intact. Affect is appropriate. Fund of knowledge is adequate. Memory is intact for recent and remote events. CRANIAL NERVES: Fundoscopic Exam: The optic disc is sharp. Normal vascular pattern is visualized II: Acuity is intact. Asencio are full to confrontation. III, IV, : The pupils are reactive. Extraocular movements are intact. No ptosis is note d. V: Facial sensation is intact and symmetric. VII: Facial movements are symmetric. VIII: Hearing is intact bilaterally. IX, X: The uvula and palate move appropriately. XI: Shrug is equal bilaterally. XII: Tongue protrusion is midline. MOTOR EXAM: (5 IS NORMAL) * Indicates pain limited MUSCLE/ MOVEMENT: RIGHT LEFT Deltoids 5 5 Biceps 5 5 Triceps 5 5 Wrist Flexion 5 5 Wrist Extension 5 5 Median Intrinsics 5 5 Ulnar Intrinsics 5 5 Manager Client Support Strength 5 5 Hip Flexion 5 4+ Hip Extension 5 4+ Knee Flexion 5 4+ Knee Extension 5 4+ Dorsiflexion 5 5 Extensor Hallicus Longus 5 5 Plantarflexion 5 5 SENSORY EXAM: Sensory exam shows diminished sensation to light touch or pain to the posterior aspect of h is left lower leg. REFLEXES: (2 OR 2+ IS NORMAL) REFLEX: RIGHT LEFT BICEPS 2 2 BRACHIORADIALIS 2 2 TRICEPS 2 2 PATELLAR 2 2 ACHILLES 2 2 ROSARIO'S ABSENT ABSENT PLANTAR DOWNGOING DOWNGOING GAIT: Gait is steady. The patient is able to heel/ toe, and tandem walk. PERIPHERAL NERVE/MISC: Tinel is negative at the wrists and elbows bilaterally. Phalen is negative. Straight leg raise is positive on the left. Toby's test of the hips is negative bilaterally. Impingement test is negative bilaterally. RADIOGRAPHIC REVIEW: Imaging studies which were reviewed with the patient include an MRI lumbar spine performed without contrast on February 15, 2013. This demonstrates lumbar spondylolisthesis at the L5-S1 level. Advanced degenerative disc disease is also present at L5-S1 level and also to a les ser degree at the L4-5 level where an annular tear is also evident. There is foraminal sten osis as well as facet arthropathy present at both the L4-5 and L5-S1 levels. X-rays AP and lateral as well as flexion extension lumbar spine performed on February 24, 2013 demonstrate lumbar spondylolisthesis at both L4-5 and L5-S1. At the L5-S1 level there is g reater than 5 mm of motion. This is consistent with instability. Additionally a mild scoli otic deformity is also evident. Motion at the L4-5 level does not achieve the level of inst ability. ASSESSMENT: NEUROSURGICAL DIAGNOSES: Patient Active Problem List Diagnosis Spinal instability, lumbar Spondylolisthesis of lumbosacral region DDD (degenerative disc disease), lumbar Foraminal stenosis of lumbosacral region Scoliosis Facet arthropathy, lumbosacral GENERAL DIAGNOSES: Past Medical History Diagnosis Date GERD (gastroesophageal reflux disease) Asthma PLAN: Mr. Medina has attempted extensive conservative management for his lumbar disease. At thi s point there are not any nonsurgical options remaining which has not already attempted. He is very interested in proceeding with surgical intervention. I do think it is reasonable f or him to consider this given the chronicity of the problem and the number of [facility]. The surgical procedure which we discussed would be a left-sided approach L5-S1 TLIF performed a minimally invasive fashion. We also discussed that it would also be reasonable for him to seek treatment by one my colleagues either Dr. Estes or Dr. Rivera. At this point he is interested in surgical intervention promptly and is not bothered by a lack of continuity with followup. Therefore he requested that I perform the procedure and allow one my colleagues to handle his followup. We also discussed that the L4-5 level does have some degenerative changes evident however as he is not currently symptomatic from it I do no t recommend surgical intervention for it. We discussed that there is a real probability dolly t in the future at some point he may require some form of intervention for disease at that l evel. We discussed the risks, alternatives, and benefits to surgical intervention with Mr. Medina in clinic. These risks included but were not limited to , stroke, heart attack, numbn ess, weakness, paralysis, failure of fusion, failure of hardware, subsidence, adjacent segme nt degeneration, cerebrospinal fluid leak, bleeding, infection, injury to surrounding tissue s and organs, injury from positioning, injury to the nerves, and need for additional surgery . Surgical options were discussed and the technique to be employed was described in detail to him. All his questions were answered. We discussed that the goal of the surgery is to prevent progression of his disease, but it is not considered a cure. We also discussed that although some patients may obtain 100% sym ptom relief, it is realistic to anticipate that some symptoms will continue postoperatively despite a successful surgery. We estimate it is reasonable for him to experience an 80% imp rovement in his symptoms after he heals. We also discussed that there is no guarantee that surgery will provide improvement in his c ondition, and indeed may even worsen the symptoms. We also discussed that in the course of the procedure the operative plan may be altered to include more, less, or different levels d epending upon findings in order to provide him with the best possible outcome. He will consider things and contact us if he decides that he would like to proceed with aspen dimas. We spent 1 hour in visit with Antonio Medina today with the majority of time spent counse lling the patient on his diagnosis, options for his care, and coordinating his care. ELECTRONICALLY SIGNED BY: Patrick Pinto MD, 03/20/2013 14:28 documented in th is encounter Miscellaneous Notes Miscellaneous - ONBASE SCAN [facility] - 03/20/2013 12:00 AM PDT iscellaneous - ONBASE SCAN [facility] - 03/20/2013 12:00 AM PDTEle ctronically signed by Luis Dorado at 04/11/2013 11:25 AM PDTdocumented in this encounter Plan of Treatment Not on filedocumented as of this encounter Visit Diagnoses + + | Diagnosis | + + | Scoliosis - Primary Scoliosis (and kyphoscoliosis), idiopathic | + + | Foraminal stenosis of lumbosacral region Spinal stenosis, lumbar region, without | | neurogenic claudication | + + | DDD (degenerative disc disease), lumbar Degeneration of lumbar or lumbosacral | | intervertebral disc | + + | Spondylolisthesis of lumbosacral region Acquired spondylolisthesis | + + | Spinal instability, lumbar Other unspecified back disorder | + + | Facet arthropathy, lumbosacral Lumbosacral spondylosis without myelopathy | + + | Annular tear of lumbar disc Degeneration of lumbar or lumbosacral intervertebral disc | + + documented in this encounter"
--- OUTSIDE RECORDS SUMMARY | ~2020-06-28 | XMS | Encounter Summary ---
Demographics + + + | Address | [address] | | | [place] [address] | + + + | Home Phone | | + + + | Preferred Language | Unknown | + + + | Marital Status | | + + + | Sabianist Affiliation | Unknown | + + + | Race | White | + + + | Ethnic Group | Not or | + + + Author + + + | Author | [facility] | | | and [place] | + + + | Organization | [facility] | | | and [...] [place], | | | | | [place] [address] | | + + + + + | Wilian Krishna) | ECON | [address] | | | [place] | | [place], [place] | | | | | [address] | | + + + + + | Ctahy Medina | ECON | [address] | | | | | [place], [place] | | | | | [address] | | + + + + + | Zachariah Medina | ECON | Unknown | + | + + + + + Care Team Providers + +------+ + | Care Patient Access Specialist Name | Role | Phone | + +------+ + | Chito Tarango MD | PCP | | + +------+ + Encounter Details +--------+ + + + + | Date | Type | Department | Care Team | Description | +--------+ + + + + | 06/23/ | Preadmit | [facility] | | | | 2019 | Visit [facility] | | | | | | [facility] | | | | | | [facility] | | | | | | [address] | | | | | | [place] | | | | | | [address] | | | | | | [phone] | | | +--------+ + + + [...] + + + | Blood Pressure | - | - | | + + + + + | Pulse | - | - | | + [...] + + + + | Weight | 97.3 kg (214 lb 9.6 | 06/23/2019 9:54 AM | | | | oz) | PDT | | + + + + + | Height | 182.9 cm (6') | 06/23/2019 9:54 AM | | | | | PDT | | + + + + + | Body Mass Index | 29.1 | 06/23/2019 9:54 AM | | | | | PDT | | + + + + + documented in this encounter Patient Instructions Instructions Rita Sánchez RN - 06/23/2019You will be called by the Surgery Center after 2:00 pm the business day before your procedure for your ARRIVAL TIME. DO NOT EAT anything after midnight. This includes gum and mints. You may have CLEAR LIQUIDS up to 2 hours BEFORE ARRIVAL TIME. Clear liquids: water, pulp-free juices, carbonated beverages, clear tea, and black coffee. You must arrange for a responsible adult to drive you home after your procedure. Children must have a parent stay inside the Surgery Center at all times. Do not wear makeup, jewelry, body piercing's or perfume/cologne. Please leave valuables at home. If having extremity surgery please remove all NAIL ARMENIAN. Please leave contact lenses at home. Bring a case for eyeglasses & hearing aids. PAS COMPLETED. QUESTIONS ANSWERED. documented in this encounter Plan of Treatment Not on filedocumented as of this encounter Visit Diagnoses Not on filedocumented in this encounter"
--- OUTSIDE RECORDS SUMMARY | ~2020-06-28 | XMS | Encounter Summary ---
Demographics + + + | Address | [address] | | | [place] [address] | + + + | Home Phone | | + + + | Preferred Language | Unknown | + + + | Marital Status | | + + + | Caodaism Affiliation | Unknown | + + + | Race | White | + + + | Ethnic Group | Not or | + + + Author + + + | Author | [facility] | | | and [place] | + + + | Organization | [facility] | | [...] [place], | | | | | [place] [address] | | + + + + + | Wilian Krishna) | ECON | [address] | | | [place] | | [place], [place] | | | | | [address] | | + + + + + | Cathy Medina | ECON | [address] | | | | | [place], [place] | | | | | [address] | | + + + + + | Zachariah Medina | ECON | Unknown | + | + + + + + Care Team Providers + +------+ + | Care Arts Administrator Or Manager Name | Role | Phone | + +------+ + | Chito Tarango MD | PCP | | + +------+ + Encounter Details +--------+ + + + + | Date | Type | Department | Care Team | Description | +--------+ + + + + | 12/03/ | Hospital | [facility] | Conversion | Diagnosis unknown | | 2017 | Encounter | CONVERSION [address]P [address] | Transaction, | | | | | [address] | Provider Unknown | | | | | [place] | | | | | | [address] | (Fax) | | | | | [phone] | | | +--------+ + + + [...] | + +--------+ + + + | MRI PELVIS WO | Routin | 11/04/2016 | | Results for this | | CONTRAST | e | 1:27 PM | | procedure are in the | | | | PST | | results section. | + +--------+ + + + documented in this encounter Results MRI Pelvis wo Contrast (11/04/2016 1:27 PM PST) + + | Specimen | + + | | + + + + + | Narrative | Performed At | + + + | This is a non-reportable procedure without a radiologist report and | | | is used for image storage only | | + + + + + | Procedure Note | + + | Mika Oconnor - 06/15/2019 12:59 AM PDT This is a non-reportable procedure | | without a radiologist report and isused for image storage only | + + documented in this encounter Visit Diagnoses + + | Diagnosis | + + | Diagnosis unknown Other unknown and unspecified cause of morbidity or mortality | + + documented in this encounter"
--- OUTSIDE RECORDS SUMMARY | ~2020-06-28 | XMS | Encounter Summary ---
Demographics + + + | Address | [address] | | | [place] [address] | + + + | Home Phone | | + + + | Preferred Language | Unknown | + + + | Marital Status | | + + + | Confucianism Affiliation | Unknown | + + + | Race | White | + + + | Ethnic Group | Not or | + + + Author + + + | Author | [facility] | | | and [place] | + + + | Organization | [facility] | | | [...] [place], | | | | | [place] [address] | | + + + + + | Wilian Krishna) | ECON | [address] | | | [place] | | [place], [place] | | | | | [address] | | + + + + + | Cathy Medina | ECON | [address] | | | | | [place], [place] | | | | | [address] | | + + + + + | Zachariah Medina | ECON | Unknown | + | + + + + + Care Team Providers + +------+ + | Care Automotive Service Advisor Name | Role | Phone | + +------+ + | Chito Tarango MD | PCP | | + +------+ + Reason for Visit + +--------+ + | Reason | Onset | Comments | | | Date | | + +--------+ + | Medication Refill | 03/28/ | | | | 2012 | | + +--------+ + Encounter Details +--------+--------+ + + + | Date | Type | Department | Care Team | Description | +--------+--------+ + + + | 03/28/ | Refill | [facility] | Arturo Muir | Medication Refill | | 2012 | | NEUROSURGERY [address] | [address] | | | | | [address] | [place], [place] | | | | | [place], [place] | [address] | | | | | [address] | [phone] | | | | | [phone] | | | +--------+--------+ + + + Social History + +-------+ [...] Notes Telephone Encounter - Kacey Cr - 03/29/2013 12:35 PM PDTLet patient know that I will b e mailing his Rx for Percocet today to his address and that Flexeril was sent electronically to his pharmacy. Kacey ddendum Note - Arturo Gamboa MD - 03/29/2013 10:59 AM PDT Addended by: ARTURO MUIR on: 03/29/2013 10:59 Modules accepted: Orders elephone Enco unter - Shaye Kacey Moody - 03/29/2013 10:40 AM PDTPlease re-order Rx for Percocet and cancel th e one done yesterday as it did not print. Thank you, Kacey elephone Encounter - Alexandereric Kacey Moody - 03/28/2013 8:21 AM PDTMichael calls today requesting a medication refill. He is S/P lumbar fusion on 03/22/2013. He states he's been having muscle spasms in the back of his left thigh which have really been bothering him. He states the muscle relaxer's do h elp this, but he is almost out of his tranxene. He has 5-6 left. He is needing a refill of his Percocet 7.5/325MG. He currently has 14 left and is taking 2 every 4 hours. He would like this mailed to his address. Please approve/deny pain medication and add muscle relaxer if you feel he should have a new Rx for this. Kacey documented in this enc ounter Plan of Treatment Not on filedocumented as of this encounter Visit Diagnoses Not on filedocumented in this encounter"
--- OUTSIDE RECORDS SUMMARY | ~2020-06-28 | XMS | Encounter Summary ---
Demographics + + + | Address | [address] | | | [place] [address] | + + + | Home Phone | | + + + | Preferred Language | Unknown | + + + | Marital Status | | + + + | Advent Affiliation | Unknown | + + + | Race | White | + + + | Ethnic Group | Not or | + + + Author + + + | Author | [facility] | | | and [place] | + + + | Organization | [facility] | | [...] [place], | | | | | [place] [address] | | + + + + + | Wilian Krishna) | ECON | [address] | | | [place] | | [place], [place] | | | | | [address] | | + + + + + | Cathy Hanley | ECON | [address] | | | | | [place], [place] | | | | | [address] | | + + + + + | Zachariah Hanley | ECON | Unknown | + | + + + + + Care Team Providers + +------+ + | Care Tubing Machine Tender Name | Role | Phone | + +------+ + | Chito Tarango MD | PCP | | + +------+ + Encounter Details +--------+ + + + + | Date | Type | Department | Care Team | Description | +--------+ + + + + | 06/12/ | Hospital | [facility] | Mg Estes MD | S/P lumbar fusion | | 2012 | Encounter | MED CTR XRAY [address] | [address] | | | | | [place] | [place] [address] | | | | | [place] [address] | [phone] | | | | | [phone] | | | +--------+ + + + [...] mg by mouth | | 0 | 05/22/20 | | | (COLACE) 100 mg | [...] LUMBAR SPINE 2 [place] | Routin | 06/12/2013 | S/P lumbar fusion | Results for this | | 3 VW | e | 2:57 PM | | procedure are in the | | | | PDT | | results section. | + +--------+ + + + documented in this encounter Results XR Lumbar Spine 2 or 3 Vw (06/12/2013 2:57 PM PDT) + + | Specimen | + + | | + + + + + | Narrative | Performed At | + + + | [facility] | [place] | | Department [address] [facility] | [facility] | | [ rep [address]] [ rep [facility] | | st zip] Signed | - IMAGING | | | | | Patient Name: THEODORE HANLEY Physician: | | | ARRE.[id number] : 09/23/1957 Age: 55 Sex: M Unit #: [id number] | | | Exam Date: 06/12/13 Location: [facility] | | | Report #: [id number] Page: | | | %(RAD)RES..mtdd.print.filter("pg") of %(RAD) | | | RES..mtdd.print.filter("tpg") | | | | | | Accession Number: [id number] | | | LUMBAR SPINE, 06/12/2013 CLINICAL [...] Transcribed Date/Time: 06/12/2013 | | | 17:00 Plastic Eye Technician: <<Signature | | | on File>> | | | | | | Santhosh Dejesus MD06/15/13 0828 <Electronically signed by | | | Santhosh Dejesus MD> Santhosh Dejesus MD 06/12/13 | | | 9447 Plastic Eye Technician: Christiano [id number] | | | Patrick Pinto MD | | + + + + + + + + | Performing | Address | City/State/Zipcode | Phone Number | | Organization | | | | + + + + + | [facility] | [address] | [place] | [phone] | | [facility] | | [address] | | | - IMAGING | | | | + + + + + documented in this encounter Visit Diagnoses + + | Diagnosis | + + | S/P lumbar fusion Arthrodesis status | + + documented in this encounter
--- OUTSIDE RECORDS SUMMARY | ~2020-06-28 | XMS | Clinical Summary ---
Demographics + + + | Address | [address] | | | [place] [address] | + + + | Home Phone | | + + + | Preferred Language | Unknown | + + + | Marital Status | | + + + | Evangelical Affiliation | Unknown | + + + | Race | White | + + + | Ethnic Group | Not or | + + + Author + + + | Author | [facility] | | | and [place] | + + + | Organization | [facility] | | | [...] [place], | | | | | [place] [address] | | + + + + + | Wilian Krishna) | ECON | [address] | | | [place] | | [place], [place] | | | | | [address] | | + + + + + | Cathy Medina | ECON | [address] | | | | | [place], [place] | | | | | [address] | | + + + + + | Zachariah Medina | ECON | Unknown | + | + + + + + Care Team Providers + +------+ + | Care All Terrain Vehicle Racer Name | Role | Phone | + +------+ + | Chito Tarango MD | PCP | | + +------+ + Allergies + + + + + + | Active Allergy | Reactions | Severity | Noted | Comments | | | | | Date | | + + + + + + | Morphine | Hives | High | 03/15/20 | Ok to take | | | | | 13 | oxycodone | + + + + + + Medications + + + +---------+------+------+-------+ | Medication | Sig | Dispensed | Refills | Star | End | Statu | | | | | | t | Date | s | | | | | | Date | | | + + + +---------+------+------+-------+ | Ascorbic Acid | Take 1,000 mg by | | 0 | | | Activ | | (VITAMIN C) 1000 MG | mouth Daily. | | | | | e | | tablet | | | | | | | + + + +---------+------+------+-------+ | Multiple | Take 1 capsule by | | 0 | | | Activ | | Vitamins-Minerals | mouth Daily. | | | | | e | | (MULTIVITAMIN & | | | | | | | | MINERAL PO) | | | | | | | + + + +---------+------+------+-------+ | methocarbamol | Take 1 tablet by | 90 | 0 | 12/1 | | Activ | | (ROBAXIN) 750 mg | mouth 3 times daily. | tablet | | 3/20 | | e | | tabletIndications: | | | | 13 | | | | S/P lumbar fusion, | | | | | | | | Muscle spasms of | | | | | | | | lower extremity | | | | | | | + + + +---------+------+------+-------+ +---+ + | | Additional | | | InformationPatient | | | taking differently: | | | 750 mg Oral 3 TIMES | | | DAILY PRN, Reason: | | | Side effects, | | | Reported on | | | 06/23/2019 10:00 AM | +---+ + + + +--------+---+------+---+-------+ | amitriptyline | Take 10 mg by mouth | | 0 | | | Activ | | (ELAVIL) 10 mg | DAILY | | | | | e | | tablet | | | | | | | + + +--------+---+------+---+-------+ | atorvaSTATin | Take 40 mg by mouth | | 0 | | | Activ | | (LIPITOR) 40 mg | nightly. | | | | | e | | tablet | | | | | | | + + +--------+---+------+---+-------+ | clonazePAM | Take 0.5 mg by mouth | | 0 | | | Activ | | (KLONOPIN) 0.5 mg | every 6 (six) hours | | | | | e | | tablet | as needed for | | | | | | | | Anxiety. | | | | | | + + +--------+---+------+---+-------+ | diphenhydrAMINE | Take 50 mg by mouth | | 0 | | | Activ | | (BENADRYL) 25 MG | every 6 (six) hours | | | | | e | | capsule | as needed for | | | | | | | | Itching. | | | | | | + + +--------+---+------+---+-------+ | ibuprofen | 600 mg. PRN | | 0 | | | Activ | | (ADVIL,MOTRIN) 600 | | | | | | e | | MG tablet | | | | | | | + + +--------+---+------+---+-------+ | venlafaxine | Take 37.5 mg by | | 0 | | | Activ | | (EFFEXOR XR) 37.5 mg | mouth daily with | | | | | e | | 24 hr capsule | breakfast. | | | | | | + + +--------+---+------+---+-------+ | | Take by mouth | | 0 | | | Activ | | Glucosamine-Chondroi | Daily. | | | | | e | | t-Vit C-Mn | | | | | | | | (GLUCOSAMINE 1500 | | | | | | | | COMPLEX PO) | | | | | | | + + +--------+---+------+---+-------+ | | Take 1-2 tablets by | 25 | 0 | 08/2 | | Activ | | oxyCODONE-acetaminop | mouth every 4 hours | tablet | | 6/20 | | e | | hen (PERCOCET) 5-325 | as needed for Pain. | | | 19 | | | | mg per tablet | | | | | | | + + +--------+---+------+---+-------+ Active Problems + + + | Problem | Noted Date | + + + | Degenerative TFCC tear, right | 06/20/2019 | + + + + + | Overview: Added automatically from request for surgery | | [id number] | + + + + + | Other chronic pain | 06/07/2019 | + + + + + | Overview: lower back | + + + + + | Hyperlipidemia | 06/07/2019 | + + + | Asthma | 06/07/2019 | + + + + + | Overview: mild, no meds | + + + + + | Sleep apnea | 06/07/2019 | + + + + + | Overview: doesnt wear CPAP | + + + + + | Right wrist pain | 05/09/2019 | + + + | Ureteric colic | 04/28/2016 | + + + | Ureterolithiasis | 04/28/2016 | + + + | Chest pain | 11/22/2014 | + + + | Spinal instability, lumbar | 03/20/2013 | + + + | Spondylolisthesis of lumbosacral region | 03/20/2013 | + + + | DDD (degenerative disc disease), lumbar | 03/20/2013 | + + + | Foraminal stenosis of lumbosacral region | 03/20/2013 | + + + | Scoliosis | 03/20/2013 | + + + | Facet arthropathy, lumbosacral | 03/20/2013 | + + + | Annular tear of lumbar disc | 03/20/2013 | + + + Immunizations + + + + | Name | Administration Dates | Next Due | + + + + | INFLUENZA TRIV | 08/24/2018, 08/30/2017, 08/04/2016, | | | W/PRES(PED/ADOL/ADUL | 08/13/2015, 08/22/2014 | | | T),MULTIDOSE | | | + + + + | TDAP, (ADOL/ADULT) | 03/04/2016 | | + + + + Family History + + +------+ + | Medical History | Relation | Name | Comments | + + +------+ + | Arthritis | Father | | | + + +------+ + | Hypertension | Father | | | + + +------+ + | PVD | Father | | carotid endarterectomy | + + +------+ + | Arthritis | Mother | | | + + +------+ + | Asthma | Mother | | | + + +------+ + | COPD | Mother | | | + + +------+ + | Cancer | Mother | | | + + +------+ + | Stroke | Mother | | | + + +------+ + | Arthritis | Sister | | | + + +------+ + | Rheum arthritis | Sister | | and Fibromyalgia | + + +------+ + | Asthma | Son | | | + + +------+ + + +------+ + + | Relation | Name | Status | Comments | + +------+ + + | Father | | Alive | | + +------+ + + | Mother | | | respiratory failure | | | | (Age | | | | | 88) | | + +------+ + + | Sister | | Alive | | + +------+ + + | Son | | Alive | | + +------+ + + Social History + +-------+ +--------+------+ [...] on file | | + + + Last Filed Vital Signs + + + [...] | | + + + + + Plan of Treatment + + + + + | Health Maintenance | Due Date | Last | Comments | | | | Done | | + + + + + | Hepatitis C | | | | | Screening | 7 | | | + + + + + | Medication | | | | | Management | 7 | | | + + + + + | Vaccine: | | | | | Pneumococcal 19-64 | 3 | | | | (1 of 1 - PPSV23) | | | | + + + + + | Colorectal Cancer | | | | | Screening | 7 | | | | (Colonoscopy) | | | | + + + + + | Vaccine: Zoster (1 | | | | | of 2) | 7 | | | + + + + + | Med Mgmt: BUN | | 04/29/20 | | | | 7 | 16, | | | | | 04/28/20 | | | | | 16, | | | | | 04/28/20 | | | | | 16, | | | | | Addition | | | | | al | | | | | history | | | | | exists | | + + + + + | Med Mgmt: Cr | | 04/29/20 | | | | 7 | 16, | | | | | 04/28/20 | | | | | 16, | | | | | 04/28/20 | | | | | 16, | | | | | Addition | | | | | al | | | | | history | | | | | exists | | + + + + + | Vaccine: Influenza | | 08/24/20 | | | (#1) | 0 | 18, | | | | | 08/30/20 | | | | | 17, | | | | | 08/04/20 | | | | | 16, | | | | | Addition | | | | | al | | | | | history | | | | | exists | | + + + + + | Vaccine: | | 03/04/20 | | | Dtap/Tdap/Td (2 - | 6 | 16 | | | Td) | | | | + + + + + Implants + +------+--------+ +--------+--------+--------+ | Implanted | Type | Area | Manufacture | Device | Shelf | Model | | | | | r | | Expira | / | | | | | | Identi | tion | Serial | | | | | | fier | Date | / Lot | + +------+--------+ +--------+--------+--------+ | Stent Uro Sof-Curl 6fr 26cm - | | Right: | GYRUS | | 11/29/ | [id number] | | [id number]: Qty: 1 on | | | MEDICAL - | | 2019 | 6 / | | 04/28/2016 | | Ureter | GYRS | | | /[id number] | | | | | | | | 50 | + +------+--------+ +--------+--------+--------+ Results Not on filefrom Last 3 Months Insurance + +--------+ +--------+ +---------+------+ | Payer | Benefi | Subscriber | Effect | Phone | Address | Type | | | t Plan | ID | eusebio | | | | | | / | | Dates | | | | | | Group | | | | | | + +--------+ +--------+ +---------+------+ | [employer] | FIRST | [id number] | | [phone] | | PPO | | ADMIN | CHOICE | | [phone]-[id number] | 2 | | | | | | | esent | | | | | | HEALTH | | | | | | | | ADMIN | | | | | | | | FST | | | | | | | | CH | | | | | | + +--------+ +--------+ +---------+------+ | UMR | UMR | [id number] | 11/01/19 | | | PPO | | | PPO | 4 | 14-Pre | | | | | | | | sent | | | | + +--------+ +--------+ +---------+------+ + +--------+ +--------+ + + | Guarantor Name | Accoun | Relation to | Date | Phone | Billing Address | | | t Type | Patient | of | | | | | | | | | | + +--------+ +--------+ + + | Antonio Medina | Person | Self | [birth year] | | [address] | | [place] | al/Fam | | [address] | [phone] | [place] | | | [place] | | | 6 (Home) | [address] | | | | | | [phone] | | | | | | | 4 (Work) | | + +--------+ +--------+ + + | Antonio Medina | Person | Self | [birth year] | | [address] | | [place] | al/Fam | | 1957 | [phone] | [place] | | | [place] | | | 6 (Home) | [address] | | | | | | [phone] | | | | | | | 4 (Work) | | + +--------+ +--------+ + + Advance Directives + + + + + | Type | Date Recorded | Patient | Explanation | | | | Template Reproduction Technician | | + + + + + | Power of | | | | | Telephone Installer | | | | + + + + + | Advance | | | | | Directive | | | | + + + + +"
--- OUTSIDE RECORDS SUMMARY | ~2020-06-28 | XMS | Encounter Summary ---
Demographics + + + | Address | [address] | | | [place] [address] | + + + | Home Phone | | + + + | Preferred Language | Unknown | + + + | Marital Status | | + + + | Rastafari Affiliation | Unknown | + + + | Race | White | + + + | Ethnic Group | Not or | + + + Author + + + | Author | [facility] | | | and [place] | + + + | Organization | [facility] | | [...] [place], | | | | | [place] [address] | | + + + + + | Wilian Krishna) | ECON | [address] | | | [place] | | [place], [place] | | | | | [address] | | + + + + + | Cathy Medina | ECON | [address] | | | | | [place], [place] | | | | | [address] | | + + + + + | Zachariah Medina | ECON | Unknown | + | + + + + + Care Team Providers + +------+ + | Care Museum Archivist Name | Role | Phone | + +------+ + | Cihto Tarango MD | PCP | | + +------+ + Encounter Details +--------+ + + + + | Date | Type | Department | Care Team | Description | +--------+ + + + + | 03/15/ | Abstract | [facility] | Patrick Pinto | | | 2012 | | [address] | MD [place] [address] | | | | | [address] [facility] [address] | [address] [place] | | | | | [place] | [address] | | | | | [address] | [phone] | | | | | [phone] | | | +--------+ + + + [...]
--- OUTSIDE RECORDS SUMMARY | ~2020-06-28 | XMS | Encounter Summary ---
Demographics + + + | Address | [address] | | | [place] [address] | + + + | Home Phone [...] [place], | | | | | [place] [address] | | + + + + + | Wilian Krishna) | ECON | [address] | | | [place] | | [place], [place] | | | | | [address] | | + + + + + | Cathy Medina | ECON | [address] | | | | | [place], [place] | | | | | [address] | | + + + + + | Zachariah Medina | ECON | Unknown | + | + + + + + Care Team Providers + +------+ + | Care Display Designer Name | Role | Phone | + +------+ + | Chito Tarango MD | PCP | | + +------+ + Encounter Details +--------+ + + + + | Date | Type | Department | Care Team | Description | +--------+ + + + + | 11/14/ | Orders Only | [facility] | Chito Tarango | | | 2014 | | CARDIOLOGY [address] | MD [place] [address] | | | | | [address] | [address] | | | | | [place] | [place] | | | | | [place] | [address] | | | | | [address] | [phone] | | | | | [phone] | | | +--------+ + + + [...] | + +--------+ + + + | STRESS ECG | Routin | 11/14/2014 | | Results for this | | | e | 1:59 PM | | procedure are in the | | | | PST | | results section. | + +--------+ + + + documented in this encounter Results Stress ECG (11/14/2014 1:59 PM PST) + + | Specimen | + + | | + + + + + | Narrative | Performed At | + + + | [facility] Treadmill Stress Test INDICATION | | | FOR TEST: 57 year old male being evaluated for chest pain and fatigue | | | RISK FACTORS: hyperlipidemia, history of tobacco dependency, and | | | stress PROCEDURE: Miles protocol. The predicted exercise time was | | | 8 minutes.Patient's Predicted Maximum HR: 163. Patient's Predicted 85% | | | Max HR: 139 REST DATA: HR: 75 bmp BP: 106 / 81 Rest EKG shows | | | normal sinus rhythm, with no ST-T. abnormalities STRESS DATA: | | | Exercise Time: 9:14 minutes, HR achieved: 164, Max BP: 155 / 69 . RPP: | | | [address]249. METS: 10.80. Symptoms: began test with chest pain 2/10 The | | | test was terminated due to Pt fatigue, walked to 100% MPHR. Stress EKG | | | shows no ST-T changes from baseline, no evidence of ischemia. There | | | were occasional PVCs IMPRESSIONS: This is a normal, low risk | | | exercise stress test, with no electrocardiographic evidence of | | | ischemia Deepak Hubbard MD | | + + + + + | Procedure Note | + + | Elvin, Rad Conversion - 06/23/2019 9:52 AM [facility] | | Stress Test INDICATION FOR TEST: 57 year old male being evaluated for chest pain and | | fatigue RISK FACTORS: hyperlipidemia, history of tobacco dependency, and stress | | PROCEDURE: Miles protocol. The predicted exercise time was 8 minutes.Patient's Predicted | | Maximum HR: 163. Patient's Predicted 85% Max HR: 139 REST DATA: HR: 75 bmp BP: 106 / | | 81 Rest EKG shows normal sinus rhythm, with no ST-T. abnormalities STRESS DATA: Exercise | | Time: 9:14 minutes, HR achieved: 164, Max BP: 155 / 69 . RPP: 70613. METS: 10.80. | | Symptoms: began test with chest pain 2/10 The test was terminated due to Pt fatigue, | | walked to 100% MPHR. Stress EKG shows no ST-T changes from baseline, no evidence of | | ischemia. There were occasional PVCs IMPRESSIONS:This is a normal, low risk exercise | | stress test, with no electrocardiographic evidence of ischemia Deepak Hubbard MD | | | | | |STRESS DATA: Exercise Time: 9:14 minutes, HR achieved: 164, Max BP: 155 / 69 . RPP: 10961. METS: 10.80. Symptoms: began test with chest pain 2/10 The test was terminated due to Pt fat igue, walked to 100% MPHR. Stress EKG shows no ST-T changes from | |baseline, no evidence of ischemia. There were occasional PVCs | | | |IMPRESSIONS: | |This is a normal, low risk exercise stress test, with no electrocardiographic evidence of i schemia | | | |Deepak Hubbard MD | | | | | + + documented in this encounter Visit Diagnoses Not on filedocumented in this encounter"
--- OUTSIDE RECORDS SUMMARY | ~2020-06-28 | XMS | Encounter Summary ---
Demographics + + + | Address | [address] | | | [place] [address] | + + + | Home Phone | | + + + | Preferred Language | Unknown | + + + | Marital Status | | + + + | Baptism Affiliation | Unknown | + + + | Race | White | + + + | Ethnic Group | Not or | + + + Author + + + | Author | [facility] | | | and [place] | + + + | Organization | [facility] | | | and [...] [place], | | | | | [place] [address] | | + + + + + | Wilian Krishna) | ECON | [address] | | | [place] | | [place], [place] | | | | | [address] | | + + + + + | Cathy Medina | ECON | [address] | | | | | [place], [place] | | | | | [address] | | + + + + + | Zachariah Medina | ECON | Unknown | + | + + + + + Care Team Providers + +------+ + | Care End Frazer Name | Role | Phone | + +------+ + | Chito Tarango MD | PCP | | + +------+ + Reason for Visit + + + | Reason | Comments | + + + | Wound Check | | + + + Encounter Details +--------+ + + + + | Date | Type | Department | Care Team | Description | +--------+ + + + + | 04/11/ | Clinical | [facility] | Patrick Pinto | Status post lumbar | | 2012 | Support | NEUROSURGERY [address] | F, [address] | spinal fusion | | | | [address] | [place] | (Primary Dx) | | | | [place] | [address] | | | | | [address] | [phone] | | | | | [phone] | | | +--------+ + + + [...] + + documented as of this encounter Patient Instructions Patient Instructions Jacquelin Bran - 04/11/2013 10:27 AM PDTLIFTING LIMITS ARE FOLL OWS: MONTH 1: 5 POUNDS MONTH 2: 15-25 POUNDS MONTH 3: 25-30 POUNDS AFTER THAT TOLERATED Start physical therapy and lifting limitations 04/22/13. documented in this encounter Progress Notes Jacquelin Bran - 04/11/2013 10:39 AM PDT Neurosurgery Postoperative Wound Check/Nurse Visit Wound Information: Location: Back Photo Attached: Wound Type: Surgical Incision Wound Size: WNL Wound Bed: WNL Wound Edges: Well approximated and intact Drainage (Amount): none Drainage (Color): none Odor: none Treatment/Dressing: Open to air Lab Orders: Clinical/Plan: Pain (0-10): 3-10 low back pain Pain Management: Percocet/Comfort advised of tylenol Effective Pain Mgmt: yes Refill Needed: Notes: Walking everyday as much as he can tolerate. States that pain is improving everyday . No complaints of numbness or tingling. Therapy Plans: To start one month after surgery X-Rays: Prior to next appointment Plan/Follow-Up: Appointment with Dr. Pinto in one month documented in this en counter Plan of Treatment Not on filedocumented as of this encounter Visit Diagnoses + + | Diagnosis | + + | Status post lumbar spinal fusion - Primary Arthrodesis status | + + documented in this encounter"
--- OUTSIDE RECORDS SUMMARY | ~2020-06-28 | XMS | Encounter Summary ---
Demographics + + + | Address | [address] | | | [place] [address] | + + + | Home Phone | | + + + | Preferred Language | Unknown | + + + | Marital Status | | + + + | Congregational Affiliation | Unknown | + + + | Race | White | + + + | Ethnic Group | Not or | + + + Author + + + | Author | [facility] | | | and [place] | + + + | Organization | [facility] | | [...] [place], | | | | | [place] [address] | | + + + + + | Wilian Krishna) | ECON | [address] | | | [place] | | [place], [place] | | | | | [address] | | + + + + + | Cathy Medina | ECON | [address] | | | | | [place], [place] | | | | | [address] | | + + + + + | Zachariah Medina | ECON | Unknown | + | + + + + + Care Team Providers + +------+ + | Care Septic Technician Name | Role | Phone | + +------+ + | Chito Tarango MD | PCP | | + +------+ + Encounter Details +--------+ + + + + | Date | Type | Department | Care Team | Description | +--------+ + + + + | 06/26/ | Hospital | [facility] | Tommy Martini | | | 2018 | Encounter | [facility] | [address] | | | | | [address] | [address] [place], | | | | | [address] | [place] [address] | | | | | [place], [place] | [phone] | | | | | [address] | | | | | | [phone] | | | +--------+ + + + [...] + + documented in this encounter Results STORED IMAGE [...]
--- OUTSIDE RECORDS SUMMARY | ~2020-06-28 | XMS | Encounter Summary ---
Demographics + + + | Address | [address] | | | [place] [address] | + + + | Home Phone | | + + + | Preferred Language | Unknown | + + + | Marital Status | | + + + | Moravian Affiliation | Unknown | + + + | Race | White | + + + | Ethnic Group | Not or | + + + Author + + + | Author | [facility] | | | and [place] | + + + | Organization | [facility] | | | [...] [place], | | | | | [place] [address] | | + + + + + | Wilian Krishna) | ECON | [address] | | | [place] | | [place], [place] | | | | | [address] | | + + + + + | Cathy Medina | ECON | [address] | | | | | [place], [place] | | | | | [address] | | + + + + + | Zachariah Medina | ECON | Unknown | + | + + + + + Care Team Providers + +------+ + | Care Almond Huller Name | Role | Phone | + +------+ + | Chito Tarango MD | PCP | | + +------+ + Encounter Details +--------+ + + + + | Date | Type | Department | Care Team | Description | +--------+ + + + + | 02/23/ | Orders Only | [facility] | Patrick Pinto | Back pain (Primary | | 2012 | | NEUROSURGERY [address] | [facility] [address] | Dx) | | | | [address] | [address] [place] | | | | | [place] | [address] | | | | | [address] | [phone] | | | | | [phone] | | | +--------+ + + + [...] of this encounter Plan of Treatment + +---------+--------+ + + | Name | Type | Priori | Associated Diagnoses | Order Schedule | | | | ty | | | + +---------+--------+ + + | XR Lumbar Spine 4 + | Imaging | Routin | Back pain | Expected: | | Vw | | e | | 02/23/2013, Expires: | | | | | | 02/23/2014 | + +---------+--------+ + + documented as of this encounter Visit Diagnoses + + | Diagnosis | + + | Back pain - Primary Backache, unspecified | + + documented in this encounter"
--- OUTSIDE RECORDS SUMMARY | 2020-06-28 06:46 | XMS ---
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 EYennifer VISIT COUNT (12 MO.) [address] [place] [address] MARCOS Levine TOTAL 3 NOTE: Visits indicate total known visits. ED/UCC VISIT TRACKING (12 MO.) 06/28/2020 06:43 [facility] [place] TYPE: Emergency COMPLAINT: - CHEST PAIN 04/12/2020 22:49 [facility] [place] TYPE: Emergency DIAGNOSES: - Personal history of urinary calculi - Tubulo-interstitial nephritis, not specified as acute or runway model - Infection and inflammatory reaction due to other urinary sten - POST OP PAIN 03/11/2020 08:51 [facility] [place] TYPE: Emergency DIAGNOSES: - ABDOMINAL AND BACK PAIN - Calculus of ureter INPATIENT VISIT TRACKING (12 MO.) No inpatient visits to display in this time frame [email or web address]
== END ==
LOC: ED
DX: I69.920 Aphasia following unspecified cerebrovascular disease (principal); R07.9 Chest pain, unspecified
CPT/HCPCS: 70450; 70496; 70498; 71045; 80053; 81001; 83735; 84484; 85025; 93005; 93010; 99285-25; J7030; Q9967

== ENCOUNTER 2020-07-03 12:37 | Emergency (ER) | payer OTHER ==
[~2020-07-03] VITALS: Ht 162.6 cm; Wt 81.7 kg
--- OUTSIDE RECORDS SUMMARY | 2020-07-03 12:42 | XMS ---
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 Care History Medical/Surgical 07/01/2020 [facility] - W RECEIVED CASE MANAGEMENT CONSULT TO HELP PATIENT ESTABLISH CARE WITH A PCP. - W CONTACTED PATIENT SON AJ- PATIENT WOULD LIKE HELP ESTABLISHING CARE - RECVD APPROVAL FROM PATIENT AND SON TO CALL [facility] PER PATIENT SON REQUEST. - W CONTACTED [facility]- PATIENT HAS AN ESTABLISHING CARE APT WITH WILLIS ROA ON Wednesday07/03/2020 @ 9:00AM. - SON AJ MADE AWARE OF THE APT AND PATIENT- BOTH APPROVED OF THE APT DATE AND TIME. E.D. VISIT COUNT (12 MO.) [address] [place] [address] TOTAL 2 NOTE: Visits indicate total known visits. ED/UCC VISIT TRACKING (12 MO.) 07/03/2020 12:[address] [facility] [place] TYPE: Emergency COMPLAINT: - HEADACHE 06/28/2020 06:43 [facility] [place] TYPE: Emergency COMPLAINT: - CHEST PAIN DIAGNOSES: - Aphasia following unspecified cerebrovascular disease - Chest pain, unspecified - Chest pain, unspecified INPATIENT VISIT TRACKING (12 MO.) No inpatient visits to display in this time frame [email or web address]
[2020-07-03] MEDS ORDERED: CARVEDILOL3.125 MG PO (13:00)
[2020-07-03] MEDS ORDERED: PANTOPRAZOLE SO40 MG PO (13:00)
[2020-07-03] MEDS ORDERED: ATORVASTATIN CA40 MG PO (13:00)
[2020-07-03] MEDS ORDERED: LOSARTAN POTASS50 MG PO (13:00)
[2020-07-03] MEDS ORDERED: GABAPENTIN300 MG PO (13:00)
[2020-07-03] MEDS ORDERED: VENTOLIN HFA18 GM INH (13:01)
== END 2020-07-03 19:54 | disposition home or self-care (01) ==
LOC: ED 12:37
DX: I77.74 Dissection of vertebral artery (principal); I77.75 Dissection of other precerebral arteries; J45.909 Unspecified asthma, uncomplicated; G47.30 Sleep apnea, unspecified; F41.9 Anxiety disorder, unspecified; Z86.73 Personal history of transient ischemic attack (TIA), and cerebral infarction without residual deficits; Z79.899 Other long term (current) drug therapy
CPT/HCPCS: 70450; 70496; 80048; 85025; 99284-25; J0780; J1200; J2270; J2765

== ENCOUNTER 2020-07-15 09:34 | Emergency (ER) | payer OTHER ==
[~2020-07-15] VITALS: Ht 162.6 cm; Wt 81.7 kg
[~2020-07-15 09:34] MED LIST changes: +ATORVASTATIN CA40 MG PO; +CARVEDILOL3.125 MG PO; +GABAPENTIN300 MG PO; +LOSARTAN POTASS50 MG PO; +PANTOPRAZOLE SO40 MG PO; +VENTOLIN HFA18 GM INH
--- OUTSIDE RECORDS SUMMARY | 2020-07-15 09:36 | XMS ---
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 No recent Security Events currently on file CRITERIA MET - 6 ED Visits in 6 Months - [facility] - 3 Facilities in 90 Days - [facility] - 2 Visits in 30 Days CARE PROVIDERS LATHA BALDERAS Physician Credit Underwriter 07/04/2020-Current PHONE: [phone] WILLIS ROA Physician Credit Underwriter 07/01/2020-Current PHONE: [phone] Care Guidelines exist for the following facilities: [facility] ( 01/31/2018 ) Care History Medical/Surgical 07/01/2020 [facility] - CHW RECEIVED CASE MANAGEMENT CONSULT TO HELP PATIENT ESTABLISH CARE WITH A PCP. - CHW CONTACTED PATIENT SON AJ- PATIENT WOULD LIKE HELP ESTABLISHING CARE - RECVD APPROVAL FROM PATIENT AND SON TO CALL [facility] PER PATIENT SON REQUEST. - CHW CONTACTED [facility]- PATIENT HAS AN ESTABLISHING CARE APT WITH LATHA BALDERAS- 07/04/2020. - SON NEGRITA MADE AWARE OF THE APT AND PATIENT- BOTH APPROVED OF THE APT DATE AND TIME. E[facility] VISIT COUNT (12 MO.) [facility] [place] [address] [address] TOTAL 7 NOTE: Visits indicate total known visits. 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 - Unspecified asthma, uncomplicated - Dissection of vertebral artery - Headache - Dissection of other precerebral arteries 06/28/2020 06:43 [facility] TYPE: Emergency COMPLAINT: - CHEST PAIN DIAGNOSES: - Aphasia following unspecified cerebrovascular disease - Chest pain, unspecified - Chest pain, unspecified [facility]2020 [facility] DIAGNOSES: - Acute Left Vertebral Artery Dissection, history of CVA 06/05/2020 23:05 [facility] TYPE: Emergency DIAGNOSES: - cva 05/21/2020 01:36 [facility] TYPE: Emergency DIAGNOSES: - Acute CVA, right sided deficits 04/21/2020 20:01 [facility] TYPE: Emergency DIAGNOSES: - Unspecified sprain of unspecified shoulder joint, initial enc - Bitten or stung by nonvenomous insect and other nonvenomous a - Sprain of joints and ligaments of unspecified parts of neck, - Chest pain, unspecified 12/20/2019 14:19 [facility] TYPE: Urgent Care DIAGNOSES: - Personal history of transient ischemic attack (TIA), and cere - Gastro-esophageal reflux disease without esophagitis - Encounter for issue of repeat prescription - Essential (primary) hypertension INPATIENT VISIT TRACKING (12 MO.) 06/19/2020 19:48 [facility] [place] TYPE: Medical Surgical DIAGNOSES: - Aphasia - Acute Left Vertebral Artery Dissection, history of CVA 06/05/2020 23:05 [facility] [place] TYPE: Medical Surgical DIAGNOSES: - Aphasia - Cerebral infarction, unspecified - cva 05/21/2020 01:36 [facility] [place] TYPE: Medical Surgical DIAGNOSES: - Acute CVA, right sided deficits - 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
--- NOTE | 2020-07-15 11:56 | EKG ---
[facility] [address] [place], [place] [address] Signed Normal sinus rhythm Inferior infarct , age undetermined T wave abnormality, consider lateral ischemia Abnormal ECG No previous ECGs available Confirmed by CAIO GALAVIZ DO ([id number]) on 07/15/2020 11:56:30 AM Electronically Signed By: CAIO GALAVIZ DO 07/15/20 1156 PATIENT NAME: THEODORE HANLEY Electrocardiogram DATE OF : 70 PHYSICIAN: CAIO GALAVIZ DO REPORT #: [id number] REPORT IS CONFIDENTIAL AND NOT TO BE RELEASED WITHOUT AUTHORIZATION
== END 2020-07-15 11:17 | disposition home or self-care (01) ==
LOC: ED 09:34
DX: R47.01 Aphasia (principal); R07.9 Chest pain, unspecified; G47.30 Sleep apnea, unspecified; J45.909 Unspecified asthma, uncomplicated; F41.9 Anxiety disorder, unspecified; Z86.73 Personal history of transient ischemic attack (TIA), and cerebral infarction without residual deficits; F17.200 Nicotine dependence, unspecified, uncomplicated
CPT/HCPCS: 80053; 84484; 85025; 93005; 93010; 99285-25